=== PATIENT | female | born 2005 | race Caucasian/White ===

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

== ENCOUNTER → 2023-02-16 10:50 | Outpatient (CLI) | payer BC, OTHER, SELFPAY | PROVIDERS: PCP Nurse Practitioner; Visit Provider Nurse Practitioner | DX: Z11.1 Encounter for screening for respiratory tuberculosis (principal) | CPT/HCPCS: 86580 ==

== ENCOUNTER 2023-06-06 14:47 | Emergency (ER) | payer BC, OTHER, SELFPAY ==
--- NOTE | 2023-06-06 15:26 | ED_ITS ---
Discharge Plan Disposition Patient Disposition: Home, Self-Care Condition: Good Prescriptions Prescriptions: New azithromycin [Zithromax] 250 mg tablet 250 mg PO UD DOSE PK Qty: 6 0RF Rx Instructions: Take two (2) tablets today, then one (1) tablet days #2 thru #5 [id number] [Bromfed DM] 2-30-10 mg/5 mL Syrup 5 ml PO Q6H PRN (Reason: Cough) Qty: 240 0RF No Action sertraline [Zoloft] 50 mg tablet 50 mg PO DAILY Qty: 30 6RF Xulane 150-35 mcg/24 hr patch weekly 1 patch transdermal Q7D Qty: 3 8RF Rx Instructions: apply once weekly for 3 weeks of a 4-week cycle Referrals Follow up/Referrals: Hetal Barnett PA [Primary Care Provider] - See instructions Activity Restrictions/Add. Instructions Additional Instructions/Restrictions: Drink plenty of fluids. Take tylenol or ibuprofen for pain or fever. Take the medications as directed. Follow up with your regular doctor. GO TO THE ER FOR ANY WORSENING SYMPTOMS Clinical Impressions Clinical Impression: Sinusitis, Acute viral syndrome Stand Alone Forms Stand Alone Forms: Work/School Release Instructions Patient Instructions: DI for Sinusitis, DI for Viral Syndrome Discharge ED Provider: Sarkis Lo [facility] General Stated complaint: congestion, body aches Time Seen by Provider: 06/06/23 15:26 History of Present Illness Provider Complaint: She states that for the past 5 days she has had sinus congestion, chest congestion, malaise and sore throat. She states that at first she had fever, but that has resolved. 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 Related Data Previous Rx's Medication Instructions Recorded sertraline 50 mg tablet (Zoloft) 50 mg PO DAILY #30 tabs 08/17/22 norelgestromin 150 mcg-e.estradiol 1 patch transdermal Q7D #3 ea 11/29/22 35 mcg/24 hr weekly transderm patch (Xulane) azithromycin 250 mg tablet 250 mg PO UD DOSE PK #6 tabs 06/06/23 (Zithromax) [id number] 5 ml PO Q6H PRN Cough #240 mL 02/14/24 2 mg-30 mg-10 mg/5 mL oral syrup (Bromfed DM) Allergies Allergy/AdvReac Type Severity Reaction Status Date / Time No Known Allergies Allergy Verified 06/06/23 15:56 [facility] Disclaimer: The information contained in this section may have been updated after the patient was seen, as this information can be updated by other users. Medical History No significant past medical history Family History Other Family history of cancer Social History Smoking Status: Never smoker alcohol intake: never substance use type: denies use current occupational status: employed Travel in the last 8 weeks: None ROS Obtained: Yes All systems reviewed & no additional complaints except as documented Constitutional Constitutional: Reports chills and Reports fever(s) Eyes Eyes: Denies eye discharge ENT Ears, Nose, Mouth, and Throat: Reports as per HPI Cardiovascular Cardiovascular: Denies chest pain Respiratory Respiratory: Denies chest congestion and Reports cough Gastrointestinal Gastrointestingal: Reports nausea; Denies abdominal pain, constipation, cramping, diarrhea or vomiting Musculoskeletal Musculoskeletal: Denies arthralgias Integumentary/Breasts Skin/Breast: Denies rash Neurologic Neurologic: Denies paresthesias Physical Exam General General appearance: alert and in no apparent distress Eye Eye exam: Present normal appearance, PERRL and EOMI ENT ENT exam: Present mucous membranes moist and normal external ear exam Expanded ENT Exam External ear exam: Present normal external inspection TM/Canal exam: Bilateral TM: erythema and bulging Nose exam: Absent sinus tenderness Nasal speculum exam: Bilateral: normal Mouth exam: Present normal external inspection; Absent drooling Teeth exam: Present normal inspection Throat exam: Present tonsillar erythema and tonsillomegaly Neck Neck exam: Present normal inspection, full ROM and trachea midline; Absent tenderness, lymphadenopathy or thyromegaly Chest Chest inspection: Present normal inspection and symmetric chest wall rise; Absent tenderness or rash Respiratory Respiratory exam: Present normal lung sounds bilaterally; Absent respiratory distress, wheezes, stridor or accessory muscle use Cardiovascular Cardiovascular exam: Present regular rate, normal rhythm and normal heart sounds Abdominal Exam Abdominal exam: Present soft; Absent distention, tenderness, guarding, rebound or rigidity Extremities Exam Extremities exam: Present normal inspection, full ROM and normal capillary refill; Absent tenderness or calf tenderness Back Exam Back exam: Present normal inspection and full ROM; Absent tenderness Neurological Exam Neurological exam: Present alert and oriented X3 Psychiatric Psychiatric exam: Present normal affect and normal mood Skin Skin exam: Present warm, dry, intact and normal color Lymphatic Lymphatic Findings: no adenopathy Medical Decision Making Medical Records Medical records reviewed: No I reviewed the patient's medical records. [place] Inquiry Pt receiving controlled substance: No Lab Data Lab results reviewed: Yes I reviewed the patient's lab results.
[2023-06-06 15:40] VITALS: BP 120/70; PULSE 86; RESP 19; TEMP 36.9; O2SAT 98; BMI 20.3
[2023-06-06 15:53] LABS: UTC Influenza A Antigen Negative (Negative); UTC Influenza B Antigen Negative (Negative)
[2023-06-06 16:07] VITALS: BP 120/70; PULSE 86; RESP 19; TEMP 36.9; O2SAT 98
[2023-06-06 16:12] LABS: Adenovirus,PCR Not Detected (NotDetected); Coronavirus 19, PCR Not Detected (NotDetected); Coronavirus 229E Not Detected (NotDetected); Coronavirus NL63 Not Detected (NotDetected); Coronavirus OC43 Not Detected (NotDetected); Coronovirus HKU1,PCR Not Detected (NotDetected); Human Metapneumovirus Not Detected (NotDetected); Influenza A, PCR Not Detected (NotDetected); Influenza AH1, 2009 Not Detected (NotDetected); Influenza AH1, PCR Not Detected (NotDetected); Influenza B, PCR Not Detected (NotDetected); Parainfluenza 1, PCR Not Detected (NotDetected); Parainfluenza 2, PCR Not Detected (NotDetected); Parainfluenza 3, PCR Not Detected (NotDetected); Parainfluenza 4, PCR Not Detected (NotDetected); Respiratory Syncytial Virus Not Detected (NotDetected); Rhinovirus/Enterovirus Not Detected (NotDetected)
[2023-06-06 18:09] LABS: Influenza AH3,PCR Detected (NotDetected)
== END 2023-06-06 16:06 | disposition home or self-care (01) ==
PROVIDERS: Emergency Provider Nurse Practitioner Family; PCP Physician Assistant
DX: J10.1 Influenza due to other identified influenza virus with other respiratory manifestations (principal); J01.90 Acute sinusitis, unspecified; R05.9 Cough, unspecified; R09.81 Nasal congestion; R07.0 Pain in throat; Z20.818 Contact with and (suspected) exposure to other bacterial communicable diseases
CPT/HCPCS: 87632; 87635; 87804; 99212; 99214; G0463

== ENCOUNTER 2024-05-19 15:59 | Outpatient (CLI) | payer BC, OTHER, SELFPAY ==
[2024-05-19 18:06] LABS: HCG,Quantitative 1157 mIU/ml (0-5.42)
[2024-05-20 08:13] LABS: Progesterone 32.6 ng/mL (.)
== END 2024-05-19 23:59 | disposition home or self-care (01) ==
LOC: LAB 16:00
PROVIDERS: PCP Nurse Practitioner; Visit Provider Obstetrics & Gynecology
DX: N93.8 Other specified abnormal uterine and vaginal bleeding (principal)
CPT/HCPCS: 36415; 84144; 84702

== ENCOUNTER 2024-06-09 17:05 | Outpatient (CLI) | payer BC, OTHER, SELFPAY ==
[2024-06-10 21:09] LABS: Neisseria gonorrhoeae, NAA Negative (Negative)
== END 2024-06-09 23:59 | disposition home or self-care (01) ==
LOC: LAB.DROPOF 17:05
PROVIDERS: PCP Obstetrics & Gynecology; Visit Provider Obstetrics & Gynecology
DX: Z34.01 Encounter for supervision of normal first pregnancy, first trimester (principal)
CPT/HCPCS: 87491; 87591

== ENCOUNTER 2024-06-23 13:53 | Outpatient (CLI) | payer BC, OTHER, SELFPAY ==
[2024-06-23 14:29] LABS: Basophils % 0.5 % (0.1-2.0); Eosinophils # 0.2 K/mm3 (0.0-0.4); Eosinophils % 2.1 % (0.1-12.0); Hematocrit 36.1 % (37.0-47.0); Hemoglobin 12.1 g/dL (12.2-16.2); Lymphocytes # 1.7 K/mm3 (0.7-4.5); Lymphocytes % 20.8 % (10-50); Mean Corpuscular HGB Conc 33.5 g/dL (31.8-35.4); Mean Corpuscular Hemoglobin 29.9 pg (27.0-31.2); Mean Corpuscular Volume 89.1 fl (81-99); Monocytes # 0.5 K/mm3 (0.1-1.0); Monocytes % 6.1 % (1.7-9.3); Neutrophils # 5.6 K/mm3 (1.8-7.8); Neutrophils % 70.2 % (37.0-80.0); Platelet Count 234 K/mm3 (142-424); Red Blood Count 4.05 M/mm3 (4.20-5.40); Red Cell Distribution Width 13.7 % (11.5-17.5); White Blood Count 7.9 K/mm3 (4.8-10.8)
[2024-06-23 15:34] LABS: HIV Combo NEGATIVE (Negative)
[2024-06-23 15:43] LABS: Hepatitis C Ab Qual. W/ RFX NEGATIVE (Negative)
[2024-06-24 05:10] LABS: Hepatitis B Surface Antigen Negative (Negative)
[2024-06-24 06:11] LABS: Rubella Antibodies, IgG 2.01 index (Immune >0.99)
[2024-06-24 10:34] LABS: RPR W/RFX Titers Nonreactive (Nonreactive)
== END 2024-06-23 23:59 | disposition home or self-care (01) ==
LOC: LAB 13:54
PROVIDERS: PCP Nurse Practitioner; Visit Provider Obstetrics & Gynecology
DX: Z34.01 Encounter for supervision of normal first pregnancy, first trimester (principal); Z3A.10 10 weeks gestation of pregnancy
CPT/HCPCS: 36415; 85025; 86592; 86762; 86803; 86850; 87340; 87389

== ENCOUNTER 2024-09-01 13:39 | Outpatient (CLI) | payer BC, OTHER, SELFPAY ==
--- NOTE | 2024-09-01 14:00 | US_ITS ---
PROCEDURE: US OB /MATERNAL DETAIL CLINICAL INDICATION: schedule in 5 wks, 20 wk anatomy COMPARISON: No exams were available for comparison FINDINGS: Transabdominal sonographic images of the pelvis were obtained. From her established due date she is . Single viable intrauterine gestation. Cephalic position. Placenta: Anteriorplacenta grade 1. There is an average amount of fluid. The cervix appears satisfactory. Closed and measuring 3.76 cm in length. Complete survey performed and was unremarkable on the submitted images as in PACS. No discrete anomalies identified on survey imaging by technologist. Active fetus. Three-vessel cord with satisfactory umbilical cord insertion. 4- chamber heart noted. Situs, aortic arch, LVOT, RVOT, three-vessel view appear normal. Survey of brain & ventricles Unremarkable. Cerebellum, thalamus, choroid plexus, cisterna magna appear normal. Face and neck survey unremarkable. Profile, nasion, lips and nose appeared normal. Diaphragm and chest views unremarkable. Abdomen: Both kidneys noted and unremarkable. Stomach and bladder noted and satisfactory. Spine: Survey of the spine satisfactory with no anomalies identified nor imaged. Cervical, thoracic, lower spine appear normal. Both arms and legs noted. Amniotic Fluid: Adequate. MVP 5.04 cm Measurements: Average ultrasound age 20weeks. Estimated due date by ultrasound age 0901/19/2025. Estimated weight 321g BPD = 20weeks HC = 19weeks 5days AC = 20weeks 1day FL = 19weeks 6days Growth Percentile= 33 Heart Rate = 152bpm Cerebellum = 18weeks Humerus = 20weeks 2days HC/AC is 1.15 FL/BPD is 0.68 FL/AC is 0.21 IMPRESSION: 1. Viable fetus in the cephalic presentation with an anterior placenta grade 1. 2. The fluid is within normal limits with an MVP 5.04 cm. 3. Anatomical scan appears normal. 4. biometry is consistent with the dates Dictated by: Jason Bowers MD 09/01/2024 16:34 Jason Bowers MD in [place] 09/01/2024 16:34
== END 2024-09-01 23:59 | disposition home or self-care (01) ==
LOC: RAD 13:40
PROVIDERS: PCP Nurse Practitioner; Visit Provider Obstetrics & Gynecology
DX: Z36.2 Encounter for other antenatal screening follow-up (principal); Z3A.20 20 weeks gestation of pregnancy
CPT/HCPCS: 76811

== ENCOUNTER 2024-10-10 13:09 | Outpatient (CLI) | payer BC, OTHER, SELFPAY ==
--- OUTSIDE RECORDS SUMMARY | 2024-10-10 13:11 | XMS_ITS | Data Portability ---
[facility] Address [address] [place] [address] Assessment No assessment recorded. Plan of Treatment Reminders Order Date Submit Date Provider Last Modified By Organization Details Last Modified Time Details Appointments FOLLOW UP 15 2024 10:30A M Jeyson Barnett APRN Not available Not available Not available Lab rapid strep group A, throat [address], [address], 05/01/2024 15:25:22 rapid flu (A+B) [address], [address], 05/01/2024 15:25:22 rapid SARS CoV 2 Ag, QL, IA, upper respirato ry specimen [address], [address], 05/01/2024 15:25:22 Referral None recorded. Procedures None recorded. Surgeries None recorded. Imaging US, gallbladd er 2024 025 [facility] [address], [place], [address], 10/10/2024 11:05:31 Medication Orders amoxicill in 875 mg tablet 2024 025 [facility], [address] [place] [address], [address], 10/10/2024 11:45:38 topiramat e 50 mg tablet 2024 025 [facility], [address] [place] [address], [address], 10/10/2024 11:45:37 ondansetr on 4 mg disintegr ating tablet 2023 025 [facility], [address] [place] [address], [address], 05/01/2024 15:04:31 topiramat e 25 mg tablet 2023 025 [facility], [address] [place] [address], [address], 05/01/2024 15:04:32 topiramat e 50 mg tablet [address], [address] [place] [address], [address], 10/10/2024 10:26:09 sumatript an 50 mg tablet [address], [address] [place] [address], [address], 10/10/2024 10:26:07 Patient TargetsNo targets recorded. Patient InstructionsNo instructions recorded. Reason for Referral None Reported. Results Created Date Observation Date Name Description Value Unit Range Abnormal Flag Note LastModifiedBy Organization Detail LastModifiedTime 05/01/1905/01/2024 rapid strep group A, throa t Strep positi ve Not Available [address], [address], 05/01/2024 15:17:42 05/01/19 25 05/01/2024 rapid flu (A+B) Flu A negati ve Not Available [address], [address], 05/01/2024 15:17:43 05/01/19 25 05/01/2024 rapid flu (A+B) Flu B negati ve Not Available [address], [address], 05/01/2024 15:17:43 05/01/19 25 05/01/2024 rapid SARS CoV 2 Ag, QL, IA, upper respi rator y speci men SARS CoV Ag negati ve Not Available [address], [address], 05/01/2024 15:17:45 09/02/19 25 09/01/2024 US, obste tric No observ ation record ed. [email or web address] [facility] [address], [place], [address], 09/01/2024 17:49:09 Result Notes None recorded. Problems Name Problem SNOMED Code Status Onset Date Resolution Date Notes Provider Name and Address Organization Details Recorded Time Sore throat 926939287 Active 2024 Annalisa isaac [place] - [email or web address] 15:17:35 Candidia sis of vulva 9429295 Completed 202007/29/2020 Not Available [facility] 2 20:57:15 Migraine with aura 6054027 Active 2019 Problem Code: G43.109; Problem Code Type: ICD-10; Not Available [facility] 2 20:57:15 Tension- type headache 048476149 Active 2018 Problem Code: G44.209; Problem Code Type: ICD-10; Not Available [facility] 2 20:57:15 Acute frontal sinusiti s 19355755 Completed 201905/16/2019 Problem Code: J01.10; Problem Code Type: ICD-10; Not Available [facility] 2 20:57:15 Acute pharyngi tis 657242132 Active 2018 Not Available [facility] 2 20:57:15 Acute pharyngi tis 953703969 Completed 201805/16/2019 Not Available [facility] 2 20:57:15 Acute pharyngi tis 589175533 Completed 202005/03/2021 Not Available [facility] 2 20:57:16 Allergic rhinitis 23352645 Active 2019 Problem Code: J30.9; Problem Code Type: ICD-10; Not Available [facility] 2 20:57:16 Allergic rhinitis 01571716 Completed 201805/16/2019 Problem Code: J30.9; Problem Code Type: ICD-10; Not Available [facility] 2 20:57:16 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 28582014120 9100 Completed 201805/16/2019 Problem Code: M41.124; Problem Code Type: ICD-10; Not Available [facility] 2 20:57:16 Pain in thoracic spine 575801799 Completed 201805/16/2019 Problem Code: M54.6; Problem Code Type: ICD-10; Not Available [facility] 2 20:57:16 Urinary tract infectio us disease 25029071 Active 2021 Problem Code: N39.0; Problem Code Type: ICD-10; Not Available [facility] 2 20:57:16 Vaginola bial hernia Active 2020 Problem Code: N89.8; Problem Code Type: ICD-10; Not Available [facility] 2 20:57:16 Vaginola bial hernia Completed 202005/03/2021 Problem Code: N89.8; Problem Code Type: ICD-10; Not Available [facility] 2 20:57:17 Irregula r periods 76113665 Active 2021 Not Available [facility] 2 20:57:17 Premenop ausal menorrha aris Active 2021 Not Available [facility] 2 20:57:17 Abnormal uterine bleeding 40801392386 100 Completed 201912/02/2019 Problem Code: N93.8; Problem Code Type: ICD-10; Not Available [facility] 2 20:57:17 Finding of frequenc y of menstrua tion 315370578 Active 2019 Not Available [facility] 2 20:57:17 Amenorrh ea 59525112 Active 2020 Problem Code: N91.2; Problem Code Type: ICD-10; Not Available [facility] 2 20:57:17 Dysmenor alivia 448247530 Active 2021 Not Available [facility] 2 20:57:18 Cough 25154118 Active 2019 Problem Code: R05; Problem Code Type: ICD-10; Not Available [facility] 2 20:57:18 Dysuria 34721322 Completed 202105/10/2021 Problem Code: R30.0; Problem Code Type: ICD-10; Not Available [facility] 2 20:57:18 Dysuria 93258626 Active 2021 Problem Code: R30.0; Problem Code Type: ICD-10; Not Available [facility] 2 20:57:18 Headache 44651241 Completed 201805/16/2019 Problem Code: R51; Problem Code Type: ICD-10; Not Available [facility] 2 20:57:18 Abnormal finding on evaluati on procedur e 980551944 Active 2019 Not Available [facility] 2 20:57:19 Syphilis test finding 052741944 Active 2019 Problem Code: Z11.3; Problem Code Type: ICD-10; Not Available [facility] 2 20:57:19 Exposure to SARS-CoV -2 Active 2020 Problem Code: Z20.822; Problem Code Type: ICD-10; Not Available [facility] 2 20:57:19 Influenz a vaccine needed 06355944484 06 Active 2019 Problem Code: Z23; Problem Code Type: ICD-10; Not Available [facility] 2 20:57:19 Contrace ptive sheath status 094369955 Active 2018 Problem Code: Z30.018; Problem Code Type: ICD-10; Not Available [facility] 2 20:57:19 Contrace ption care manageme nt Active 2021 Problem Code: Z30.9; Problem Code Type: ICD-10; Not Available [facility] 2 20:57:20 Contrace ptive sheath status 044092057 Completed 201812/02/2019 Problem Code: Z30.018; Problem Code Type: ICD-10; Not Available [facility] 2 20:57:21 Surveill ance of contrace ption Completed 201805/03/2021 Not Available [facility] 2 20:57:21 Finding of body mass index 278556438 Active 2020 Problem Code: Z68.1; Problem Code Type: ICD-10; Not Available [facility] 2 20:57:21 Finding of body mass index 227500634 Completed 202108/21/2021 Problem Code: Z68.1; Problem Code Type: ICD-10; Not Available [facility] 2 20:57:22 Body mass index 20-24 - normal 980083641 Active 2021 Not Available [facility] 2 20:57:22 Normal body mass index 34725585 Active 2019 Problem Code: Z68.52; Problem Code Type: ICD-10; Not Available [facility] 2 20:57:22 Normal body mass index 51287552 Completed 201905/10/2020 Problem Code: Z68.52; Problem Code Type: ICD-10; Not Available [facility] 2 20:57:23 Urinary tract infectio us disease 65610978 Completed 202106/20/2021 Problem Code: N39.0; Problem Code Type: ICD-10; Not Available [facility] 2 20:57:23 Influenz a vaccine needed 91533240565 06 Completed 202005/03/2021 Problem Code: Z23; Problem Code Type: ICD-10; Not Available [facility] 2 20:57:24 Influenz a vaccine needed 77269360951 06 Completed 202005/03/2021 Problem Code: Z23; Problem Code Type: ICD-10; Not Available [facility] 2 20:57:25 Finding of viabilit y of pregnanc y 814913226 Active 2021 Not Available [facility] 2 20:57:25 Finding of body mass index 727397035 Completed 202007/01/2020 Problem Code: Z68.1; Problem Code Type: ICD-10; Not Available [facility] 2 20:57:25 Normal body mass index 62076354 Completed 202105/10/2021 Problem Code: Z68.52; Problem Code Type: ICD-10; Not Available [facility] 2 20:57:26 Problem Notes None recorded. Procedures Surgical History Date Name Laterality Status Provider Name and Address Organization Details Recorded Time procedure on foot completed Annalisa Roland [facility] 03/12/2023 16:34:27 Imaging Results None recorded. Procedure Notes None recorded. Medical Equipment None Reported. Allergies No known drug allergies Medications Name Sig Start Date Stop Date Status Note LastModified by Organization Details LastModified Time amoxicillin 500 mg capsule TAKE 1 CAPSULE BY MOUTH THREE TIMES DAILY 05/01 completed Not Available Not Available Not Available norgestimat e 0.25 mg-ethinyl estradiol 0.035 mg tablet take 1 tablet by oral route once daily 09/10 completed Not Available Not Available Not Available cetirizine 10 mg tablet take 1 tablet (10 mg) by oral route once daily 07/12 completed Not Available Not Available Not Available azithromyci n 250 mg tablet TAKE 1 TABLET BY MOUTH TWICE DAILY FOR 7 DAYS 05/01 completed Not Available Not Available Not Available ibuprofen 800 mg tablet TAKE 1 TABLET BY MOUTH EVERY 6 HOURS NEEDED FOR PAIN 05/01 completed Not Available Not Available Not Available alprazolam 1 mg tablet TAKE 1 TABLET BY MOUTH ONE HOUR PRIOR TO SURGERY 05/01 completed Not Available Not Available Not Available tizanidine 4 mg tablet 1 po q hs 09/04 completed Not Available Not Available Not Available fluconazole 150 mg tablet take 1 tablet (150 mg) by oral route once today, then 1 tablet PO in 3 days 05/03 completed Not Available Not Available Not Available sumatriptan 25 mg tablet take 1 tablet (25 mg) by oral route after onset of migraine; may repeat after 2 hours if headache returns, not to exceed 200mg in 24hrs 07/12 completed Not Available Not Available Not Available sumatriptan 50 mg tablet TAKE 1 TABLET BY MOUTH 1 DOSE MAY REPEAT 1 DOSE IN 2 HOURS WITH A MAX OF 100MG/24 HOURS 10/10 completed Not Available Not Available Not Available levonorgest rel 0.15 mg-ethinyl estradiol 0.03 mg tablet take 1 tablet by oral route once daily 07/12 completed Not Available Not Available Not Available topiramate 25 mg tablet TAKE ONE TABLET BY MOUTH AT BEDTIME for 1 week then take 1 tablet twice daily for 1 week 05/01 completed Not Available Not Available Not Available metronidazo le 500 mg tablet take 1 tablet (500 mg) by oral route 2 times per day 05/03 completed Not Available Not Available Not Available valacyclovi r 500 mg tablet TAKE ONE TABLET BY MOUTH TWICE DAILY FOR FOUR DAYS 10/10 completed Not Available Not Available Not Available ciprofloxac in 500 mg tablet take 1 tablet (500 mg) by oral route every 12 hours for 10 days 06/20 completed Not Available Not Available Not Available sulfamethox azole 800 mg-trimetho prim 160 mg tablet take 1 tablet by oral route every 12 hours for 10 days 05/10 completed Not Available Not Available Not Available amoxicillin 500 mg tablet take 1 tablet (500 mg) by oral route every 12 hours for 10 days 05/16 completed Not Available Not Available Not Available oxycodone-a cetaminophe n 5 mg-325 mg tablet TAKE 1 TABLET BY MOUTH EVERY 4 HOURS NEEDED FOR PAIN 05/01 completed Not Available Not Available Not Available amoxicillin 875 mg tablet Take 1 tablet every 12 hours by oral route for 7 days. 10/10 completed Not Available Not Available Not Available Zoloft 50 mg tablet Take 1 tablet every day by oral route. 03/12 completed Not Available Not Available Not Available oseltamivir 75 mg capsule 05/01 completed Not Available Not Available Not Available docusate sodium 100 mg capsule TAKE 1 CAPSULE BY MOUTH TWICE DAILY FOR CONSTIPAT ION 05/01 completed Not Available Not Available Not Available Naprosyn 500 mg tablet Take 1 tablet(s) by mouth bid 09/04 completed Not Available Not Available Not Available propranolol 20 mg tablet take 1 tablet (20 mg) by oral route 2 times per day 07/12 completed Not Available Not Available Not Available bromphenira mine-pseudo ephedrine-D M 2 mg-30 mg-10 mg/5 mL oral syrup Give 5 mL every 8 hrs as needed for cough 05/01 completed Not Available Not Available Not Available ondansetron 4 mg disintegrat ing tablet DISSOLVE ONE TABLET every 4 to 6 hours as needed 05/01 completed Not Available Not Available Not Available medroxyprog esterone 150 mg/mL intramuscul ar syringe inject 1 millilite r (150 mg) by intramusc ular route every 11 weeks 07/01 completed Not Available Not Available Not Available topiramate 50 mg tablet Take 1 tablet twice a day by oral route for 90 days. 10/10 completed Not Available Not Available Not Available nitrofurant oin monohydrate /macrocryst als 100 mg capsule 05/01 completed Not Available Not Available Not Available active Not Available Not Avai lable Not Available drospirenon e 3 mg-ethinyl estradiol 0.02 mg tablet take 1 tablet by oral route once daily 06/20 completed Not Available Not Available Not Available naproxen sodium ER (CR) 500 mg tablet,exte nded release 24 hr mphase take 1 tablet twice a day as needed for pain 03/12 completed Not Available Not Available Not Available 28 mg iron-800 mcg tablet One by oral route daily 03/12 completed Not Available Not Available Not Available Zafemy 150 mcg-35 mcg/24 hr transdermal patch APPLY 1 PATCH TOPICALLY ONCE EVERY 7 DAYS FOR 3 WEEKS OF A 4 WEEK CYCLE 10/10 completed Not Available Not Available Not Available Vitals Date Recorded Body height Body mass index (BMI) [Percentile] Per age and sex Body mass index (BMI) Body weight Heart rate Oxygen saturation Oxygen saturation in Arterial blood by Pulse oximetry Systolic blood pressure Diastolic blood pressure Provider Name and Address Organization Details Last Updated DateTime 4 160.02 cm 37 % 20.7 kg/m2 59403.0 1 g 85 /min 98 % 98 % 109 mm[Hg] 68 mm[Hg] Annalisa Restaro. 4 14:08:29 Date Recorded Body height Body mass index (BMI) Body mass index (BMI) [Percentile] Per age and sex Body weight Heart rate Oxygen saturation Oxygen saturation in Arterial blood by Pulse oximetry Body temperature Systolic blood pressure Diastolic blood pressure Provider Name and Address Organization Details Last Updated DateTime 5 160.02 cm 19.9 kg/m2 26 % 22360.0 5 g 86 /min 99 % 99 % 97.8 [degF] 107 mm[Hg] 73 mm[Hg] Annalisa [employer] 5 14:56:47 Date Recorded Body height Body mass index (BMI) Body mass index (BMI) [Percentile] Per age and sex Body weight Heart rate Oxygen saturation Oxygen saturation in Arterial blood by Pulse oximetry Systolic blood pressure Diastolic blood pressure Provider Name and Address Organization Details Last Updated DateTime 4 160.02 cm 20.7 kg/m2 37 % 11818.3 1 g 87 /min 97 % 97 % 110 mm[Hg] 75 mm[Hg] Annalisa Restaro. 4 08:49:50 Date Recorded Body height Body mass index (BMI) Body weight Body temperature Heart rate Oxygen saturation Oxygen saturation in Arterial blood by Pulse oximetry Systolic blood pressure Diastolic blood pressure Provider Name and Address Organization Details Last Updated DateTime 5 160.02 cm 22.7 kg/m2 75022.8 2 g 97.8 [degF] 117 /min 98 % 98 % 116 mm[Hg] 80 mm[Hg] Annalisa Roland [employer] 5 10:24:53 Date Recorded Body mass index (BMI) [Percentile] Per age and sex Body mass index (BMI) Body height Provider Name and Address Organization Details Last Updated DateTime 03/12/2023 47 % 21.4 kg/m2 160.02 cm Melody Barnett APRN [address] [place] [address], [phone], [employer] 03/12/2023 17:48:28 Date Recorded Body weight Heart rate Oxygen saturation Oxygen saturation in Arterial blood by Pulse oximetry Systolic blood pressure Diastolic blood pressure Provider Name and Address Organization Details Last Updated DateTime 3 11830.2 4 g 79 /min 99 % 99 % 118 mm[Hg] 72 mm[Hg] Annalisa Roland [employer] 3 16:31:30 Social History Question Answer Notes LastModified by Organizat ion Details LastModified Time Tobacco Smoking Status Never Smoker [employer] ion: 'Tobacco/ Alcohol/S upplement s'; SocialHis toryRespo nse: 'Never Smoker'; Not Available [facility] 12/27/2021 23:01:30 Is Your Home Air Conditioned? Yes Information not available 03/12/2023 Are You Blind Or Do You Have Difficulty Seeing? No Information not available 03/12/2023 What Is Your Level Of Caffeine Consumption? Moderate Information not available 03/12/2023 Are You A Caregiver? Yes Information not available 03/12/2023 In The 14 Days Before Symptom Onset, Have You Had Close Contact With A Laboratory-confir med COVID-19 While That Case Was Ill? No Information not available 03/12/2023 In The 14 Days Before Symptom Onset, Have You Had Close Contact With A Person Who Is Under Investigation For COVID-19 While That Person Was Ill? No Information not available 03/12/2023 Have You Been To An Area Known To Be High Risk For COVID-19? No Information not available 03/12/2023 Are You Deaf Or Do You Have Serious Difficulty Hearing? No Information not available 03/12/2023 Who Is Your Employer? [employer] Information not available 03/12/2023 Have There Been Any Changes To Your Family Or Social Situation? No Information no t available 03/12/2023 What Was The Date Of Your Most Recent Tobacco Screening? 10/10/2024 Information not available 10/10/2024 What Is Your Relationship Status? Single Information not available 03/12/2023 Do You Use Your Seat Belt Or Car Seat Routinely? Yes Information not available 03/12/2023 Do You Have Smoke And Carbon Monoxide Detectors In Your Home? Yes Information not available 03/12/2023 Are You Passively Exposed To Smoke? Yes Information no t available 03/12/2023 Are There Any Smokers In Your House? Yes Information not available 03/12/2023 Has Tobacco Cessation Counseling Been Provided? No Information not available 03/12/2023 Have You Recently Traveled Abroad? No Information not available 03/12/2023 Do You Have Difficulty Walking Or Climbing Stairs? No Information not available 03/12/2023 Sex: Female Functional Status Question Answer Note LastModified by Organizat ion Details LastModified Time Do you use any illicit or recreational drugs? No Information not available 03/12/2023 Are you currently employed? Yes Information not available 03/12/2023 Do you have transportation difficulties? No Information not available 03/12/2023 Are you able to walk? YESWOREST Information not available 03/12/2023 Do you have difficulty doing errands alone? No Information not available 03/12/2023 Are you able to care for yourself? Yes Information not available 03/12/2023 Do you have difficulty dressing or bathing? No Information not available 03/12/2023 Mental Status Question Answer Note LastModified by Organization D etails LastModified Time Do you have difficulty concentrating, remembering or making decisions? No Information no t available 03/12/2023 Family History Relationship Description Onset Age of this Age Resolved Age Notes LastModified by Organization Details LastModified Time Unspecified Relation Family history of drug abuse Relati ve: ''; [email or web address] Not available 12/27/2021 22:56:10 Unspecified Relation Family history of hyperlipidem ia Relati ve: ''; [email or web address] Not available 12/27/2021 22:56:10 Notes:*Procedure Description : Documented family medical history in mother*Relative: Mother *Procedure Description: Documented family medical history in father*Relative: Father Medical History Condition Response Allergies (Food, seasonal, environmental ) Y Headaches Y Gynecological History Statement/Question Response Date of Last Pap Smear Current Control Method Most Recent Mammogram Obstetrics History GPAL:G 0 P 0 0 0 0 Immunizations Vaccine Type Date Status Note Provider Nam e and Address Organization Details Recorded Time HPV9 8 completed Annalisa isaac [employer] 09/15/2023 08:42:57 HPV9 9 completed Annalisa isaac [employer] 09/15/2023 08:42:57 [id number] 4 completed Not Available [facility] 12/27/2021 23:51:07 [id number] 4 completed Not Available [facility] 12/27/2021 23:51:07 [id number] 4 completed Not Available [facility] 12/27/2021 23:51:07 DTaP 8 completed Not Available [facility] 12/27/2021 23:51:07 DTaP 5 completed Not Available [facility] 12/27/2021 23:51:07 MMR 8 completed Not Available [facility] 12/27/2021 23:51:07 MMR 5 completed Not Available [facility] 12/27/2021 23:51:08 IPV 8 completed Not Available [facility] 12/27/2021 23:51:08 Tdap 5 completed Not Available [facility] 12/27/2021 23:51:08 varicella 8 completed Not Available [facility] 12/27/2021 23:51:08 varicella 5 completed Not Available [facility] 12/27/2021 23:51:08 COVID-19, mRNA, LNP-S, PF, 30 mcg/0.3 mL dose 1 completed Not Available [facility] 12/27/2021 23:51:08 COVID-19, mRNA, LNP-S, PF, 30 mcg/0.3 mL dose 1 completed Not Available [facility] 12/27/2021 23:51:08 Hep B, unspecified formulation 4 completed Not Available [facility] 12/27/2021 23:51:08 Hep B, unspecified formulation 4 completed Not Available [facility] 12/27/2021 23:51:08 Hep B, unspecified formulation 4 completed Not Available [facility] 12/27/2021 23:51:08 Hib, unspecified formulation 4 completed Annalisa Roland null, [employer] 09/15/2023 08:42:57 Hib, unspecified formulation 4 completed Annalisa Straughn null, [employer] 09/15/2023 08:42:57 Hib, unspecified formulation 4 completed Annalisa Straughn null, [employer] 09/15/2023 08:42:57 meningococcal ACWY, unspecified formulation 5 completed Annalisa Kapadiay null, [employer] 09/15/2023 08:42:57 polio, unspecified formulation 8 completed Annalisa Kapadiay null, [employer] 09/15/2023 08:42:57 polio, unspecified formulation 4 completed Annalisa Kapadiay null, [employer] 09/15/2023 08:42:57 polio, unspecified formulation 4 completed Annalisaboni Kapadiay null, [employer] 09/15/2023 08:42:57 polio, unspecified formulation 4 completed Annalisa Kapadiay null, [employer] 09/15/2023 08:42:57 Hep A, ped/adol, 2 dose 8 completed Annalisaboni Kapadiay null, [employer] 09/15/2023 08:42:57 Hep A, ped/adol, 2 dose 9 completed Annalisa Asuncion null, [employer] 09/15/2023 08:42:57 Meningococcal MCV4O 0 completed Annalisa Jolly null, [employer] 09/15/2023 08:42:57 Influenza, split virus, trivalent, PF 4 completed Not Available [facility] 10/10/2024 10:12:24 Past Encounters Encounter ID Performer Location Encounter Start Date Encounter Closed Date Diagnosis/Indication Diagnosis SNOMED-CT Code Diagnosis ICD10 Code Diagnosis Note [id number] Melody Barnett[address] [address] 03/12/2023 16:19:56 03/12/2023 17:00:26 Migraine without aura 40007334 G43.009 Body mass index 20-24 - normal [id number] Z68.21 [id number] Melody Anibal [address] [address] 05/01/2023 13:55:39 05/01/2023 14:54:29 Fatigue 10046807 R53.83 Anxiety disorder [id number] 06 F41.9 Body mass index 20-24 - normal [id number] Z68.21 [id number] Melodyvinicius Barnett [place] [id number] 09/15/2023 08:40:18 09/15/2023 09:07:48 Migraine [id number] G43.909 Nausea 898498228 R11.0 Body mass index 20-24 - normal 341540319 Z68.21 [id number] Melody Barnett [place] [address] 05/01/2024 13:53:31 05/01/2024 16:55:57 Migraine 98634218 G43.909 Sore throat 315317576 J0 2.9 Streptococ kevin sore throat 05998019 J02.0 Body mass index less than 20 247974384 Z68.1 [id number] [place] [address] 10/10/2024 10:11:26 10/10/2024 10:46:13 Right upper quadrant pain 489977816 R10.11 Acute diarrhea 081150654 R19.7 Body mass index 20-24 - normal 838201362 Z68.22 Health Concerns Section Related Observation LastModified by Organization Detai ls LastModified Time None Recorded Concern Status LastModified by Organization Details LastModified Time None Recorded Advance Directives Directive None Recorded Payers Insurance Date Sequence Insurance Name Policy Number Policy Ponce Covered Member ID Ponce Member ID Guarantor Name 05/01/2024 2 [facility] (MEDICAID HMO) Paulina Emilia [id number] Paulina Emilia 10/09/2024 1 [facility] (PPO) [id number] Paulina M Emilia [id number] Paulina Emilia 03/12/2023 1 *SELF PAY* Sa jessica Nieto 05/01/2024 [address] [facility] [place] Paulina Emilia [id number] Paulina Emilia Notes Date Note Type Note Provider Name and Address Organization Details Recorded Time 03/12/2023 text/html pt here today wi th c/o migraine headaches that has been going on for a couple of years but worsening over the past year. pt states that she has had a migraine since sunday and today is the first day she hasnt woke up with a migraine. pt states that she has taken tylenol and excedrin and ibuprofen and none has helped. pt states that she will have pain on one side of her head, sometimes her vision will go blurry and her body will go numb , she is sensitive to light and sound. pt states last eye exam was around 1 month ago where she got updated eye glasses and otherwise eye exam waas WNL. advised pt to increase water intake, foods to eat and avoid. i will order PRN sumatriptan. if that doesnt help then i will order ct head. advised pt to go to ER for any stroke like symptoms. Melody Barnett APRN [address] [place], [address], [employer], [facility] [employer] [facility]. 03/12/2023 17:49:02 05/01/2023 text/html pt here today requesting a letter to keep her dog at her apartment. pt states that her dog has been a source of emotional support for her for a while now and she doesnt know how she would get along without the dog. due to pt anxiety it would be in pt best interest to keep her pet for emotional support. Melody Barnett APRN [address] [place], [address], [employer], [facility] [facility]. 05/01/2023 14:44:47 09/15/2023 text/html pt here today wi th c/o headache. pt states that she is having a headache most days in between migraines. pt states that the sumatriptan helps with migraines but she has a headache most days. pt states that it is above her eyes and that it goes to the back of her head. and she is nauseated. then it becomes a migraine. i will order topamax. educated pt on new med and foods to avoid. pt voiced understanding. Melody Barnett APRN [address] [place], [address], [employer]. 09/15/2023 09:18:09 05/01/2024 text/html pt here today wi th c/o sore throat, cough and congestion x4 days. rapid strep positive. on exam, throat red and dry. ordered abx. educated pt on new med. pt voiced understanding. increase fluids, tylenol/ibuprofen for pain, change toothbrush in 2-3 days. Melody Barnett APRN [address] [place], [address], [employer], [facility]. 05/01/2024 15:34:43 10/10/2024 text/html pt here today wi th c/o abd pain and diarrhea x3 days. pt states that the diarrhea started on and she just thought she was getting a stomach bug but then she abd pain started. states that it happens right after she eats anything. states that she barely ate anything yesterday and that is unlike her. states that she didnt eat breakfast, her mother brought her arbys for lunch and that really about killed her and then she didnt eat again until about 2100 and she ate 2 chicken nuggets and it caused abd pain and diarrhea. pt is so it is a little difficult to do an abd assessment, however pt does have tenderness to RUQ and LUQ. i am going to order an US of RUQ to r/o gallbladder issues. advised pt to limit greasy, fatty foods, processed foods, increase water. Melody Barnett APRN [address] [place], [address], [employer] 10/10/2024 10:52:57 OBGyn Episode No OBEpisode recorded.
--- NOTE | 2024-10-10 13:12 | US_ITS ---
FINAL REPORT TECHNIQUE: Sonographic images of the right upper quadrant were obtained. CLINICAL HISTORY: RUQ PAIN COMPARISON: None FINDINGS: PANCREAS: Unremarkable. LIVER: Homogeneous. No focal hepatic lesion. No intrahepatic biliary ductal dilatation. GALLBLADDER: No gallstones. No gallbladder wall thickening or pericholecystic fluid. COMMON DUCT: 3 mm. Normal for age. RIGHT KIDNEY: The right kidney measures 11.1 cm. Mild right hydronephrosis. No evidence of mass or stone. FREE FLUID: None. IMPRESSION: Unremarkable ultrasound of the gallbladder. Mild right hydronephrosis. Reviewed, Interpreted and Dictated by Paige Swift MD Transcribed by Pat Navarro Authenticated and . [facility]
--- OUTSIDE RECORDS SUMMARY | 2024-10-10 13:12 | XMS_ITS | Encounter Summary ---
Author Organization [employer] Address [address] [place] [address] Care Team Providers Care Corral Boss Name Role Phone Unavailable Primary Care Provider Unavailabl e Encounter Details Date Type Department Care Team (Late st Contact Info) Description 03/04/2021 Transcribed Document [facility] [place] [facility] [place] [address] ProviderHenny MD [facility] [place] [id number] Social History Tobacco Use Types Packs/Day Years Used Date Smoking Tobacco: Never Assessed Comments Unknown Sex and Gender Information Value Date Recorded Sex Assigned at Not on file Legal Sex Female 7:12 PM CDT Gender Identity Not on file Sexual Orientation Not on file documented as of this encounter Miscellaneous Notes * [employer]ner Conversion Note - Henny ProviderMD - 03/04/2021 9:00 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 The pain has been going on for many years but has gotten progressively worse. She describes it as a sharp pain. It is now to the point that it is affecting her ADLs. She has tried NSAIDs without relief of her pain. She has not fallen. She has not used an assistive device. She was seen at Dr Chenug's office and evaluated and she was offered Bilateral Feet Destruction of Plantar Verruca and agreed to the procedure. Pt denies a h/o DVT/PE. No trouble with anesthesia in the past. No respiratory conditions including COPD/YURIDIA/asthma. Review of Systems Constitutional: Neg for fevers or chills. Eyes: Neg for blurry vision or change in vision. ENT: Neg for sore throat, ear pain, or dizziness. Cardiac: Neg for chest pain or dyspnea on exertion. Respiratory: Neg for shortness of breath. Gastrointestinal: Neg for nausea, vomiting, diarrhea, or constipation. Musculoskeletal: Pos for bilateral foot pain. Neurologic: Neg for headaches or seizures. Psychiatric: Neg for anxiety and depression. Integumentary: Neg for rash. Vital Signs T: 36.4 ??C HR: 89(Peripheral) RR: 16 BP: 112/61 SpO2: 99% HT: 161.29 cm WT: 52.27 kg BMI: 20.1 Oxygen Settings (Last) Oxygen Therapy Mode: Room air (03/04/21 10:03:00) Physical Exam Constitutional: This is a pleasant 15 yo WF in no acute distress. HEENT: Normocephalic, atraumatic. PEERLA. Extraocular muscles intact. Conjunctiva pink without exudate. Oropharynx pink and moist. Neck supple. No JVD. Cardiac: SI, S2. RRR. No M/R/G. Respiratory: Lungs CTA bilaterally. No wheezes, rales, or rhonchi. Abdomen: Soft, nontender, nondistended. Active bowel sounds. No visible masses. Musculoskeletal: Bilateral LE without clubbing, cyanosis or edema. Integumentary: Skin is pink, warm and dry. No rashes. Neurologic: CN II-XII grossly intact. Psychiatric: Judgment and affect appropriate. Assessment/Plan 1. Preoperative Evaluation- Pt underwent preoperative laboratory workup and diagnostic studies. 2. Bilateral Foot Pain- Proceed with surgery as scheduled with Dr Cheung on 03/08/2021. Problem List/Past Medical History Ongoing No chronic problems Historical No qualifying data Procedure/Surgical History None Medications None Allergies No Known Medication Allergies Social History Alcohol Alcohol Use History No. Substance Abuse Drug Use Hx: No. Tobacco Never (less than 100 in lifetime) Smoking Status. Family History Pt mother is alive and healthy. Pt father from a CVA at 42. Lab Results Test Name Test Result Date/Time Sodium Level 140 mmol/L 03/04/2021 10:07 EST Potassium Level 3.7 mmol/L 03/04/2021 10:07 EST Chloride Level 107 mmol/L 03/04/2021 10:07 EST Carbon Dioxide Level 27 mmol/L 03/04/2021 10:07 EST Anion Gap 10 03/04/2021 10:07 EST Glucose Level 67 mg/dL (Low) 03/04/2021 10:07 EST Blood Urea Nitrogen 6 mg/dL (Low) 03/04/2021 10:07 EST Creatinine Level 0.64 mg/dL 03/04/2021 10:07 EST eGFR N/A 03/04/2021 10:07 EST eGFR NonAfrican N/A 03/04/2021 10:07 EST Bun/Creatinine 9.4 03/04/2021 10:07 EST Calcium Level 8.7 mg/dL 03/04/2021 10:07 EST Protein Total 7.2 Gram/dL 03/04/2021 10:07 EST Albumin Level 4.0 Gram/dL 03/04/2021 10:07 EST Globulin 3.2 Gram/dL 03/04/2021 10:07 EST A/G Ratio 1.2 03/04/2021 10:07 EST Bilirubin Total 0.5 mg/dL 03/04/2021 10:07 EST Alk Phos 106 Units/Liter 03/04/2021 10:07 EST AST 12 Units/Liter (Low) 03/04/2021 10:07 EST ALT 15 Units/Liter 03/04/2021 10:07 EST WBC 4.9 K/uL 03/04/2021 10:07 EST RBC 4.48 Million/uL 03/04/2021 10:07 EST Hgb 13.8 Gram/dL 03/04/2021 10:07 EST Hct 41.4 % 03/04/2021 10:07 EST MCV 92.4 fL 03/04/2021 10:07 EST MCH 30.8 pg 03/04/2021 10:07 EST MCHC 33.3 Gram/dL 03/04/2021 10:07 EST Platelet Count 224 K/uL 03/04/2021 10:07 EST MPV 10.7 fL 03/04/2021 10:07 EST RDW 12.1 % 03/04/2021 10:07 EST Neut % 61.1 % 03/04/2021 10:07 EST Neut # 3.01 K/uL 03/04/2021 10:07 EST Lymph % 22.2 % 03/04/2021 10:07 EST Lymph # 1.09 K/uL (Low) 03/04/2021 10:07 EST [place] % 11.8 % 03/04/2021 10:07 EST [place] # 0.58 K/uL 03/04/2021 10:07 EST Eos % 4.1 % 03/04/2021 10:07 EST Eos # 0.20 K/uL 03/04/2021 10:07 EST Baso % 0.6 % 03/04/2021 10:07 EST Baso # 0.03 K/uL 03/04/2021 10:07 EST Slide Review No 03/04/2021 10:07 EST IG# 0 x10(3)/uL 03/04/2021 10:07 EST IG% 0 % 03/04/2021 10:07 EST Electronically signed by Priya, [facility] Conversion Avid Editor Cerner at 08/11/2022 7:33 PM CDT documented in this encounter Plan of Treatment Not on file documented as of this encounter Visit Diagnoses Not on filedocumented in this encounter
--- OUTSIDE RECORDS SUMMARY | 2024-10-10 13:12 | XMS_ITS | Encounter Summary ---
Author Organization [employer] Address [address] [place] [address] Care Team Providers Care Ladle Liner Helper Name Role Phone Unavailable Primary Care Provider Unavailabl e Encounter Details Date Type Department Care Team (Late st Contact Info) Description 03/08/2021 Transcribed Document [facility] [place] [facility] [place] [address] ProviderHenny MD [address] [place] [id number] Social History Tobacco Use Types Packs/Day Years Used Date Smoking Tobacco: Never Assessed Comments Unknown Sex and Gender Information Value Date Recorded Sex Assigned at Not on file Legal Sex Female 7:12 PM CDT Gender Identity Not on file Sexual Orientation Not on file documented as of this encounter Miscellaneous Notes * Cerner Conversion Note - Historical ProviderMD - 03/08/2021 11:55 AM 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 Patient: NICHO LIM Age: 15 Years Sex: Female : 2005 *Operation Destruction of plantar verruca to bilateral feet Local nerve block bilateral feet Anesthesia Type MAC Indication for Surgery see dictation *Preoperative Diagnosis Plantar verruca bilateral feet Pain bilateral feet *Postoperative Diagnosis Plantar verruca bilateral feet Pain bilateral feet *Surgeon(s) Primary Surgeon TAI MYRICK DPM-REGGIE (Surgeon/Proceduralist, First) *Estimated Blood Loss Minimal *Findings Hemostasis: None Materials: None Injectable: 5 cc of 1% lidocaine and 0.5% Marcaine plain 1:1 mix to each foot *Specimen(s) None Complications None Date of Service 03/08/2021 documented in this encounter Plan of Treatment Not on file documented as of this encounter Visit Diagnoses Not on filedocumented in this encounter
--- OUTSIDE RECORDS SUMMARY | 2024-10-10 13:12 | XMS_ITS | Encounter Summary ---
Author Organization [employer] Address [address] [place] [address] Care Team Providers Care School Bus Inspector Name Role Phone Unavailable Primary Care Provider Unavailabl e Encounter Details Date Type Department Care Team (Late st Contact Info) Description 03/08/2021 Transcribed Document [facility] [place] Medicine [facility] [place] [address] ProviderHenny MD [address] [place] [id number] Social History Tobacco Use Types Packs/Day Years Used Date Smoking Tobacco: Never Assessed Comments Unknown Sex and Gender Information Value Date Recorded Sex Assigned at Not on file Legal Sex Female 7:12 PM CDT Gender Identity Not on file Sexual Orientation Not on file documented as of this encounter Miscellaneous Notes * Cerner Conversion Note - Historical ProviderMD - 03/08/2021 11:41 AM 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 Name: NICHO NIETO/Sex: 2005 Female Med Rec #: [id number] Physician: TAI MYRICK DPM-SUR Financial #: [id number] Pt. Type: O Room/Bed: [facility]/ Admit/Disch: 03/08/21 04:40:00 - Institution: [facility] PostOp Case Times Entry 1 In PACU II 03/08/21 12:07:00 Ready for PACU II 03/08/21 12:37:00 Discharge Discharge from PACU 03/08/21 12:37:00 II Last Modified By: Meghna Lundy RN 03/08/21 12:36:52 [facility] PostOp Case Times Audit 03/08/21 12:36:52 Fruit Rancher: CHRISTY Modifier: CARRIEC <+> 1 Ready for PACU II Discharge <+> 1 Discharge from PACU II Finalized By: Meghna Lundy RN Document Signatures Signed By: Meghna Lundy RN 03/08/21 12:37 documented in this encounter Plan of Treatment Not on file documented as of this encounter Visit Diagnoses Not on filedocumented in this encounter
--- OUTSIDE RECORDS SUMMARY | 2024-10-10 13:12 | XMS_ITS | Continuity of Care Document ---
Author Organization [facility] [employer], [employer] [facility] Address [address] [place] [address] Assessment No assessment recorded. Plan of Treatment Reminders Order Date Submit Date Provider Last Modified By Organization Details Last Modified Time Details Appointments FOLLOW UP 15 2024 10:30A M Jeyson Barnett APRN Not available Not available Not available Lab None recorded. Referral None recorded. Procedures None recorded. Surgeries None recorded. Imaging US, gallbladd er 2024 025 [facility] ([facility]), [address], [place], [address], 10/10/2024 11:05:31 Medication Orders None recorded. Patient TargetsNo targets recorded. Patient InstructionsNo instructions recorded. Reason for Referral None Reported. Problems Name Problem SNOMED Code Status Onset Date Resolution Date Notes Provider Name and Address Organization Details Recorded Time Sore throat 811566557 Active 2024 Annalisa isaac [facility] [employer]. 5 15:17:35 Candidia sis of vulva 1839140 Completed 202007/29/2020 Not Available [facility] 2 20:57:15 Migraine with aura 5998816 Active 2019 Problem Code: G43.109; Problem Code Type: ICD-10; Not Available [facility] 2 20:57:15 Tension- type headache 693145687 Active 2018 Problem Code: G44.209; Problem Code Type: ICD-10; Not Available [facility] 2 20:57:15 Acute frontal sinusiti s 88847975 Completed 201905/16/2019 Problem Code: J01.10; Problem Code Type: ICD-10; Not Available [facility] 2 20:57:15 Acute pharyngi tis 030330778 Active 2018 Not Available [facility] 2 20:57:15 Acute pharyngi tis 876480549 Completed 201805/16/2019 Not Available [facility] 2 20:57:15 Acute pharyngi tis 787969784 Completed 202005/03/2021 Not Available [facility] 2 20:57:16 Allergic rhinitis 53795956 Active 2019 Problem Code: J30.9; Problem Code Type: ICD-10; Not Available [facility] 2 20:57:16 Allergic rhinitis 24605274 Completed 201805/16/2019 Problem Code: J30.9; Problem Code Type: ICD-10; Not Available [facility] 2 20:57:16 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 94871900070 9100 Completed 201805/16/2019 Problem Code: M41.124; Problem Code Type: ICD-10; Not Available [facility] 2 20:57:16 Pain in thoracic spine 019200999 Completed 201805/16/2019 Problem Code: M54.6; Problem Code Type: ICD-10; Not Available [facility] 2 20:57:16 Urinary tract infectio us disease 99842215 Active 2021 Problem Code: N39.0; Problem Code Type: ICD-10; Not Available [facility] 2 20:57:16 [place]agin[place] bial hernia Active 2020 Problem Code: N89.8; Problem Code Type: ICD-10; Not Available [facility] 2 20:57:16 [place] bial hernia Completed 202005/03/2021 Problem Code: N89.8; Problem Code Type: ICD-10; Not Available [facility] 2 20:57:17 Irregula r periods 15383435 Active 2021 Not Available [facility] 2 20:57:17 Premenop ausal menorrha aris Active 2021 Not Available [facility] 2 20:57:17 Abnormal uterine bleeding 98038028295 100 Completed 201912/02/2019 Problem Code: N93.8; Problem Code Type: ICD-10; Not Available [facility] 2 20:57:17 Finding of frequenc y of menstrua tion 905703275 Active 2019 Not Available [facility] 2 20:57:17 Amenorrh ea 42943394 Active 2020 Problem Code: N91.2; Problem Code Type: ICD-10; Not Available [facility] 2 20:57:17 Dysmenor alivia 721221678 Active 2021 Not Available [facility] 2 20:57:18 Cough 33308887 Active 2019 Problem Code: R05; Problem Code Type: ICD-10; Not Available [facility] 2 20:57:18 Dysuria 23117909 Completed 202105/10/2021 Problem Code: R30.0; Problem Code Type: ICD-10; Not Available [facility] 2 20:57:18 Dysuria 34734215 Active 2021 Problem Code: R30.0; Problem Code Type: ICD-10; Not Available [facility] 2 20:57:18 Headache 04079364 Completed 201805/16/2019 Problem Code: R51; Problem Code Type: ICD-10; Not Available [facility] 2 20:57:18 Abnormal finding on evaluati on procedur e 463548934 Active 2019 Not Available [facility] 2 20:57:19 Syphilis test finding 340753513 Active 2019 Problem Code: Z11.3; Problem Code Type: ICD-10; Not Available [facility] 2 20:57:19 Exposure to SARS-CoV -2 Active 2020 Problem Code: Z20.822; Problem Code Type: ICD-10; Not Available [facility] 2 20:57:19 Influenz a vaccine needed 73012403607 06 Active 2019 Problem Code: Z23; Problem Code Type: ICD-10; Not Available [facility] 2 20:57:19 Contrace ptive sheath status 204234589 Active 2018 Problem Code: Z30.018; Problem Code Type: ICD-10; Not Available [facility] 2 20:57:19 Contrace ption care manageme nt Active 2021 Problem Code: Z30.9; Problem Code Type: ICD-10; Not Available [facility] 2 20:57:20 Contrace ptive sheath status 332795073 Completed 201812/02/2019 Problem Code: Z30.018; Problem Code Type: ICD-10; Not Available [facility] 2 20:57:21 Surveill ance of contrace ption Completed 201805/03/2021 Not Available [facility] 2 20:57:21 Finding of body mass index 171206163 Active 2020 Problem Code: Z68.1; Problem Code Type: ICD-10; Not Available [facility] 2 20:57:21 Finding of body mass index 821158013 Completed 202108/21/2021 Problem Code: Z68.1; Problem Code Type: ICD-10; Not Available [facility] 2 20:57:22 Body mass index 20-24 - normal 380530351 Active 2021 Not Available [facility] 2 20:57:22 Normal body mass index 11572949 Active 2019 Problem Code: Z68.52; Problem Code Type: ICD-10; Not Available [facility] 2 20:57:22 Normal body mass index 60618517 Completed 201905/10/2020 Problem Code: Z68.52; Problem Code Type: ICD-10; Not Available [facility] 2 20:57:23 Urinary tract infectio us disease 70980449 Completed 202106/20/2021 Problem Code: N39.0; Problem Code Type: ICD-10; Not Available [facility] 20:57:23 Influenz a vaccine needed 27621198089 06 Completed 202005/03/2021 Problem Code: Z23; Problem Code Type: ICD-10; Not Available [facility] 2 20:57:24 Influenz a vaccine needed 54978265655 06 Completed 202005/03/2021 Problem Code: Z23; Problem Code Type: ICD-10; Not Available [facility] 2 20:57:25 Finding of viabilit y of pregnanc y 522934937 Active 2021 Not Available [facility] 2 20:57:25 Finding of body mass index 627819146 Completed 202007/01/2020 Problem Code: Z68.1; Problem Code Type: ICD-10; Not Available [facility] 2 20:57:25 Normal body mass index 13718521 Completed 202105/10/2021 Problem Code: Z68.52; Problem Code Type: ICD-10; Not Available [facility] 20:57:26 Problem Notes None recorded. Procedures Surgical History Date Name Laterality Status Provider Name and Address Organization Details Recorded Time procedure on foot [facility] 03/12/2023 16:34:27 Imaging Results None recorded. Procedure [...] and Address Organization Details Last Updated DateTime 160.02 cm 22.7 kg/m2 30257.8 2 g 97.8 [degF] 117 /min 98 % 98 % 116 mm[Hg] 80 mm[Hg] Annalisa Roland [facility] [employer]. 10:24:53 Social History Question Answer Notes LastModified by Organizat ion Details LastModified Time Tobacco Smoking Status Never Smoker SocialHis toryQuest ion: 'Tobacco/ Alcohol/S upplement s'; SocialHis toryRespo nse: 'Never Smoker'; Not Available [facility] 12/27/2021 23:01:30 Is Your Home Air Conditioned? [...] 03/12/2023 Who Is Your Employer? 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 09/15/2023 08:42:57 HPV9 9 completed Annalisa isaac [employer] 09/15/2023 08:42:57 NSoZ-Prh-BBM 4 completed Not Available [facility] 12/27/2021 23:51:07 LTrD-Wft-NNF 4 completed Not Available [facility] 12/27/2021 23:51:07 GWfG-Fiy-ZIV 4 completed Not Available [facility] 12/27/2021 23:51:07 DTaP 8 completed Not Available [facility] 12/27/2021 23:51:07 DTaP 5 completed Not Available [facility] 12/27/2021 23:51:07 MMR 8 completed Not Available [facility] 12/27/2021 23:51:07 MMR 5 completed Not Available [facility] 12/27/2021 23:51:08 IPV 8 completed Not Available [facility] 12/27/2021 23:51:08 Tdap 5 completed Not Available [facility] 12/27/2021 23:51:08 varicella 8 completed Not Available [facility] 12/27/2021 23:51:08 varicella 5 completed Not Available [facility] 12/27/2021 23:51:08 COVID-19, mRNA, LNP-S, PF, 30 mcg/0.3 mL dose 1 completed Not Available [facility] 12/27/2021 23:51:08 COVID-19, mRNA, LNP-S, PF, 30 mcg/0.3 mL dose 1 completed Not Available [facility] 12/27/2021 23:51:08 Hep B, unspecified formulation 4 completed Not Available [facility] 12/27/2021 23:51:08 Hep B, unspecified formulation 4 completed Not Available [facility] 12/27/2021 23:51:08 Hep B, unspecified formulation 4 completed Not Available [facility] 12/27/2021 23:51:08 Hib, unspecified formulation 4 completed Annalisa [place] null, [employer] 09/15/2023 08:42:57 Hib, unspecified formulation 4 completed Annalisa [place] null, [employer] 09/15/2023 08:42:57 Hib, unspecified formulation 4 completed Annalisa [place] null, [employer] 09/15/2023 08:42:57 meningococcal ACWY, unspecified formulation 5 completed Annalisa [place] null, [employer] 09/15/2023 08:42:57 polio, unspecified formulation 8 completed Annalisa [place] null, [employer] 09/15/2023 08:42:57 polio, unspecified formulation 4 completed Annalisa [place] null, [employer] 09/15/2023 08:42:57 polio, unspecified formulation 4 completed Annalisaboni Roland null, [employer] 09/15/2023 08:42:57 polio, unspecified formulation 4 completed Annalisaboni Roland null, [employer] 09/15/2023 08:42:57 Hep A, ped/adol, 2 dose 8 completed Annalisaboni Kapadiay null, [employer] 09/15/2023 08:42:57 Hep A, ped/adol, 2 dose 9 completed Annalisa Jolly null, [employer] 09/15/2023 08:42:57 Meningococcal MCV4O 0 completed Annalisa Asuncion null, [employer] 09/15/2023 08:42:57 Influenza, split virus, trivalent, PF 4 completed Not Available [facility] 10/10/2024 10:12:24 Past Encounters Encounter ID Performer Location Encounter Start Date Encounter Closed Date Diagnosis/Indication Diagnosis SNOMED-CT Code Diagnosis ICD10 Code Diagnosis Note [id number] Melody Barnett [place] [id number] 10/10/2024 10:11:26 10/10/2024 10:46:13 Right upper quadrant pain 595058916 R10.11 Acute diarrhea 017019085 R19.7 Body mass index 20-24 - normal 279431156 Z68.22 Health Concerns Section Related Observation LastModified by Organization Detai ls LastModified Time None Recorded Concern Status LastModified by Organization Details LastModified Time None Recorded Payers Encounter Date Sequence Insurance Name Policy Number Policy Ponce Covered Member ID Ponce Member ID Guarantor Name 10/10/2024 1 [employer] [id number] Paulina Nieto [id number] Paulina Nieto Notes Date Note Type Note Provider Name and Address Organization Details Recorded Time 10/10/2024 text/html pt here today wi th [...] foods, increase water. Melody Barnett APRN [address] [facility], [place], [address], [facility] [employer] 10/10/2024 10:52:57 OBGyn Episode No OBEpisode recorded.
--- OUTSIDE RECORDS SUMMARY | 2024-10-10 13:12 | XMS_ITS | Encounter Summary ---
Author Organization [employer] Address [address] [place] [address] Care Team Providers Care Pulverizing And Sifting Operator Name Role Phone Unavailable Primary Care Provider Unavailabl e Encounter Details Date Type Department Care Team (Late st Contact Info) Description 03/08/2021 Transcribed Document [facility] [place] [facility] [place] [address] ProviderHenny MD [address] [place] [phone] Social History Tobacco Use Types Packs/Day Years Used Date Smoking Tobacco: Never Assessed Comments Unknown Sex and Gender Information Value Date Recorded Sex Assigned at Not on file Legal Sex Female 7:12 PM CDT Gender Identity Not on file Sexual Orientation Not on file documented as of this encounter Miscellaneous Notes * Cerner Conversion Note - Historical ProviderMD - 03/08/2021 11:41 AM NEEDLE FELT MAKING 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 Name: NICHO NIETO/Sex: 2005 Female Med Rec #: [id number] Physician: TAI MYRICK DPM-SUR Financial #: [id number] Pt. Type: O Room/Bed: [facility]/5 Admit/Disch: 03/08/21 04:40:00 - 03/08/21 12:37:00 [place] [facility] [place] Times Entry 1 In Preop 03/08/21 08:25:00 Ready for Holding n/a Room Patient Ready for 03/08/21 10:02:00 Surgery Patient Out of Preop 03/08/21 11:15:00 Patient Out of n/a Holding Room Last Modified By: NURIS ROYAL RN 03/08/21 16:42:45 SJKeli PreOp Case Times Audit 03/08/21 16:42:45 Valve Seater Operator: ERIKA Modifier: SCHROEJ <+> 1 Patient Out of Preop 03/08/21 10:05:59 Valve Seater Operator: ERIKA Modifier: SCHROEJ <+> 1 Patient Ready for Surgery Finalized By: NURIS ROYAL RN Document Signatures Signed By: NURIS ROYAL RN 03/08/21 16:42 documented in this encounter Plan of Treatment Not on file documented as of this encounter Visit Diagnoses Not on filedocumented in this encounter
--- OUTSIDE RECORDS SUMMARY | 2024-10-10 13:12 | XMS_ITS | Encounter Summary ---
Author Organization [facility] [employer] Address [address] [place] [address] Care Team Providers Care Virtual Assistant Name Role Phone Unavailable Primary Care Provider Unavailabl e Encounter Details Date Type Department Care Team (Late st Contact Info) Description 03/08/2021 Transcribed Document [facility] [place] [facility] [place] [address] ProviderHenny MD [address] [place], [place] [phone] Social History Tobacco Use Types Packs/Day Years Used Date Smoking Tobacco: Never Assessed Comments Unknown Sex and Gender Information Value Date Recorded Sex Assigned at Not on file Legal Sex Female 7:12 PM CDT Gender Identity Not on file Sexual Orientation Not on file documented as of this encounter Miscellaneous Notes * Cerner Conversion Note - Henny ProviderMD - 03/08/2021 9:50 AM CHILLING HOOD OPERATOR Spiritual Care Assessment Entered On: 03/08/2021 10:14 EST Performed On: 03/08/2021 10:00 EST by QUAN WASHINGTON Chaplain General Information Initial Visit : Yes Referred by : Nurse Referral Reason Comment : pre-surgery prayer Ministry Provided to : Patient, Family/Significant other Spiritual/Emotional Acuity : Low Spiritual Framework : Unknown Synagogue Preference : Unknown QUAN WASHINGTON Chaplain - 03/08/2021 10:12 EST Spiritual Assessment Patient's Community/Relationship : Strength in patient's life Supportive/Healthy Relationships : Yes Spiritual Assessment Comment/Summary Points : Pre-surgery visit to patient, her mom was with her. Patient was tearful from having an IV placed, but seemed to be coping over all. She was quiet, but mom shared that she is hopeful that the surgery will end the issues patient has had with her feet for quite some time. Prakennad with patient and mom for her surgery and recovery. Spirital Assessment Comment/Summary Report : SPIRITUAL ASSESSMENT COMMENT/SUMMARY No qualifying data available. QUAN WASHINGTON Chaplain - 03/08/2021 10:12 EST Interventions Emotional Support : Empathic/Engaged listening, Established trust, Family/Significant other supported, Feelings expressed, Hope strengths identified, Relationship strengths identified Spiritual and Synagogue : Prayer shared QUAN WASHINGTON Chaplain - 03/08/2021 10:12 EST documented in this encounter Plan of Treatment Not on file documented as of this encounter Visit Diagnoses Not on filedocumented in this encounter
--- OUTSIDE RECORDS SUMMARY | 2024-10-10 13:12 | XMS_ITS | Encounter Summary ---
Author Organization [employer] Address [address] [place] [address] Care Team Providers Care Commercial Hvac Service Technician Name Role Phone Unavailable Primary Care Provider Unavailabl e Encounter Details Date Type Department Care Team (Late st Contact Info) Description 03/08/2021 Transcribed Document [facility] [place] [facility] [place] [address] ProviderHenyn MD [address], [place] [phone] Social History Tobacco Use Types Packs/Day Years Used Date Smoking Tobacco: Never Assessed Comments Unknown Sex and Gender Information Value Date Recorded Sex Assigned at Not on file Legal Sex Female 7:12 PM CDT Gender Identity Not on file Sexual Orientation Not on file documented as of this encounter Miscellaneous Notes * Cerner Conversion Note - Historical ProviderMD - 03/08/2021 11:41 AM EDITOR [facility] OR PACU Summary Primary Physician: TAI MYRICK DPM-SUR Finalized Date/Time: 03/08/21 12:13:13 Pt. Name: NICHO NIETO/Sex: 2005 Female Med Rec #: [id number] Physician: TAI MYRICK DPM-SUR Financial #: [id number] Pt. Type: O Room/Bed: [facility]/ Admit/Disch: 03/08/21 04:40:00 - Institution: [place] Main OR PACU Case Times Entry 1 In PACU I 03/08/21 12:01:00 Ready for PACU 03/08/21 12:12:00 Discharge Discharge from PACU 03/08/21 12:12:00 I Last Modified By: CHRISTINE LING, [id number]-OP CAR 03/08/21 12:13:05 Finalized By: CHRISTINE LING, [id number]-OP CAR Document Signatures Signed By: CHRISTINE LING, [id number]-OP CAR 03/08/21 12:13 documented in this encounter Plan of Treatment Not on file documented as of this encounter Visit Diagnoses Not on filedocumented in this encounter
--- OUTSIDE RECORDS SUMMARY | 2024-10-10 13:12 | XMS_ITS | Clinical Summary ---
Author Organization [employer] Address [address] [place] [address] Care Team Providers Care Oil Scout Name Role Phone Unavailable Primary Care Provider Unavailabl e Social History Tobacco Use Types Packs/Day Years Used Date Smoking Tobacco: Never Assessed Comments Unknown Sex and Gender Information Value Date Recorded Sex Assigned at Not on file Legal Sex Female 7:12 PM CDT Gender Identity Not on file Sexual Orientation Not on file Plan of Treatment Not on file
--- OUTSIDE RECORDS SUMMARY | 2024-10-10 13:12 | XMS_ITS | Encounter Summary ---
Author Organization [employer] Address [address] [place] [address] Care Team Providers Care Oracle Business Analyst Name Role Phone Unavailable Primary Care Provider Unavailabl e Encounter Details Date Type Department Care Team (Late st Contact Info) Description 03/08/2021 Transcribed Document [facility] [place] Family Medicine [facility] [place] [address] Henny Sanchez MD [address], [place] [id number] Social History Tobacco Use Types Packs/Day Years Used Date Smoking Tobacco: Never Assessed Comments Unknown Sex and Gender Information Value Date Recorded Sex Assigned at Not on file Legal Sex Female 7:12 PM CDT Gender Identity Not on file Sexual Orientation Not on file documented as of this encounter Miscellaneous Notes * Cerner Conversion Note - Henny ProviderMD - 03/08/2021 11:58 AM BOAT WRAPPER Patient Education Materials Follows: Heel Pad Atrophy Heel pad atrophy is a cause of heel pain. Your heels take much of the impact when you stand, walk, or run. A fat pad under your heel bone protects the bone and cushions it. Over time, the fat pad can break down and lose elasticity and size (atrophy). This causes heel pain due to decreased cushioning in your heel. In many cases, the pain occurs in both heels. You may feel an aching or burning pain that gets worse while you are walking or standing. This pain may be worse for athletes who play sports on hard surfaces with high impact on their heels. What are the causes? This condition is caused by the gradual break down of the fat pad under the heel bone. What increases the risk? This condition is more likely to develop in people who: ??? Are age 40 or older. ??? Play a sport that involves jumping and landing on hard surfaces, such as in basketball. ??? Are runners, especially if they land on their heels first when they run. ??? Are overweight. ??? Have diabetes, rheumatoid arthritis, or blood vessel disease. ??? Get steroid injections in the heel area. ??? Have had trauma to the heel area, such as falling from a height. What are the signs or symptoms? The most common symptom of this condition is burning or aching pain in one or both heels. The pain or tenderness may be worse when: ??? Walking or standing, especially on hard surfaces or for long amounts of time. ??? Walking barefoot. ??? Wearing hard-soled shoes. ??? Resting at night. ??? Pressing on the center of the heel. How is this diagnosed? This condition is diagnosed based on your symptoms, medical history, and a physical exam. Your health care provider will check your heel pad and see if you have tenderness in the center of your heel. You may also have an ultrasound to confirm the diagnosis and measure the thickness of your fat pad. How is this treated? Treatment for this condition includes: ??? Lessening the amount of time spent walking, standing, or running. ??? Avoiding activities that cause pain. ??? Taking an sohu-yln-ncanmjo pain reliever or anti-inflammatory medicine. ??? Wearing shoes with thick heel cushioning or using a soft shoe insert (orthotic). ??? Wearing shoes at all times, even indoors. ??? Taping your heels to increase support. ??? Losing weight if you are overweight. Follow these instructions at home: Managing pain, stiffness, and swelling ??? If directed, put ice on the injured area. ? Put ice in a plastic bag. ? Place a towel between your heel and the bag. ? Leave the ice on for 20 minutes, 2?3 times a day. ??? Move your toes often to lessen stiffness and swelling. ??? Raise (elevate) the foot above the level of your heart while you are sitting or lying down. Activity ??? Return to your normal activities as told by your health care provider. Ask your health care provider what activities are safe for you. ??? Do exercises as told by your health care provider. General instructions ??? Take gnsv-mdp-adkxbgr and prescription medicines only as told by your health care provider. ??? Wear orthotics and supportive shoes as told by your health care provider. Do not wear high heels. ??? Do not use any products that contain nicotine or tobacco, such as cigarettes, e-cigarettes, and chewing tobacco. If you need help quitting, ask your health care provider. ??? If you are overweight, work with your health care provider to reach a healthy weight. ??? Keep all follow-up visits as told by your health care provider. This is important. How is this prevented? Give your body time to rest between periods of activity. ??? Wear comfortable and supportive shoes during athletic activity. ??? Maintain a healthy weight. ??? Manage long-term (chronic) health conditions, such as diabetes, high blood pressure, or blood vessel disease. Contact a health care provider if: ??? Your symptoms do not improve or they get worse. ??? You have concerns about your orthotics and shoes. Summary ??? Heel pad atrophy is a cause of heel pain. ??? This condition is caused by the gradual breakdown of the fat pad under the heel bone. ??? Treatment may include avoiding activities that cause pain, using a soft shoe insert (orthotic), and maintaining a healthy weight. This information is not intended to replace advice given to you by your health care provider. Make sure you discuss any questions you have with your health care provider. Document Revised: 04/14/2019 Document Reviewed: 04/14/2019 [employer] Patient Education ? 2020 [employer] documented in this encounter Plan of Treatment Not on file documented as of this encounter Visit Diagnoses Not on filedocumented in this encounter
--- OUTSIDE RECORDS SUMMARY | 2024-10-10 13:12 | XMS_ITS | Encounter Summary ---
Author Organization [employer] Address [address] [place] [address] Care Team Providers Care Health Researcher Name Role Phone Unavailable Primary Care Provider Unavailabl e Encounter Details Date Type Department Care Team (Late st Contact Info) Description 03/08/2021 Transcribed Document [facility] [place] [address] ProviderHenny MD [address] [place] [address] Social History Tobacco Use Types Packs/Day Years Used Date Smoking Tobacco: Never Assessed Comments Unknown Sex and Gender Information Value Date Recorded Sex Assigned at Not on file Legal Sex Female 7:12 PM CDT Gender Identity Not on file Sexual Orientation Not on file documented as of this encounter Miscellaneous Notes * Cerner Conversion Note - Historical ProviderMD - 03/08/2021 11:41 AM [employer] [place] Main OR IntraOp Summary Primary Physician: TAI MYRICK DPM-SUR Finalized Date/Time: 03/08/21 12:10:52 Pt. Name: NICHO NIETO/Sex: 2005 Female Med Rec #: [id number] Physician: TAI MYRICK DPM-SUR Financial #: [id number] Pt. Type: O Room/Bed: [facility]/ Admit/Disch: 03/08/21 04:40:00 - Institution: [facility] IntraOp Case Attendance Entry 1 Entry 2 Entry 3 Case Attendee Fermin Uriostegui, Surgical OTHER, ATTENDEE #1 REBECA MONTAÑO, Cath Lab Radiology Technician Cert BUSINESS ACCOUNT MANAGER Role Performed Laser Automatic Punch Press Operator Student BUSINESS ACCOUNT MANAGER/Nurse Gang Tailer Time In 03/08/21 11:23:00 03/08/21 11:35:00 03/08/21 11:23:00 Time Out 03/08/21 12:02:00 03/08/21 12:02:00 03/08/21 12:02:00 Procedure Verruca Verruca Verruca Excision(Bilateral) Excision(Bilateral) Excision(Bilateral) Other Attendee ARNULFO MEDRANO Superficial Wound Closed By: Last Modified By: Camryn Limon, Braxton, Crystal, Limon, Crystal, RN-PATIENT CARE BEDSIDE RN-PATIENT CARE BEDSIDE RN-PATIENT CARE BEDSIDE NON-EXEMPT 03/08/21 NON-EXEMPT 03/08/21 NON-EXEMPT 03/08/21 12:10:41 12:10:41 12:10:41 Entry 4 Entry 5 Entry 6 Case Attendee TAI MYRICK, GENARO-Mily Garcia, YUNG DEE, RN Role Performed Surgeon/Proceduralist, Scrub, First Mechanical Design Drafter, First First Time In 03/08/21 11:23:00 03/08/21 11:23:00 03/08/21 11:23:00 Time Out 03/08/21 12:02:00 03/08/21 12:02:00 03/08/21 11:38:00 Procedure Verruca Verruca Verruca Excision(Bilateral) Excision(Bilateral) Excision(Bilateral) Other Attendee Superficial Wound Closed By: Last Modified By: Camryn Limon, Braxton, Crystal, Limon, Crystal, RN-PATIENT CARE BEDSIDE RN-PATIENT CARE BEDSIDE RN-PATIENT CARE BEDSIDE NON-EXEMPT 03/08/21 NON-EXEMPT 03/08/21 NON-EXEMPT 03/08/21 12:10:41 12:10:41 12:10:41 Entry 7 Entry 8 Case Attendee HERIBERTO NIELSON ST Blankenship, Crystal, RN-PATIENT CARE BEDSIDE NON-EXEMPT Role Performed Scrub, First Mechanical Design Drafter, First Time In 03/08/21 11:23:00 03/08/21 11:35:00 Time Out 03/08/21 11:41:00 03/08/21 12:02:00 Procedure Verruca Verruca Excision(Bilateral) Excision(Bilateral) Other Attendee Superficial Wound Closed By: Last Modified By: Camryn Limon, Camryn Limon RN-PATIENT CARE BEDSIDE RN-PATIENT CARE BEDSIDE NON-EXEMPT 03/08/21 NON-EXEMPT 03/08/21 12:10:41 12:10:41 [facility] IntraOp Case Attendance Audit 03/08/21 12:10:41 Financial Aid Advisor: [id number] Modifier: [id number] 1 <+> Time Out 1 <*> Procedure Verruca Excision(Bilateral) 2 <+> Time Out 2 <*> Procedure Verruca Excision(Bilateral) 3 <+> Time Out 3 <*> Procedure Verruca Excision(Bilateral) 4 <+> Time Out 4 <*> Procedure Verruca Excision(Bilateral) 5 <+> Time Out 5 <*> Procedure Verruca Excision(Bilateral) 6 <*> Procedure Verruca Excision(Bilateral) 7 <*> Procedure Verruca Excision(Bilateral) 8 <+> Time Out 8 <*> Procedure Verruca Excision(Bilateral) 03/08/21 12:07:39 Financial Aid Advisor: SHY Modifier: [id number] <+> Time In 1 <*> Procedure Verruca Excision(Bilateral) 2 <*> Procedure Verruca Excision(Bilateral) 3 <*> Procedure Verruca Excision(Bilateral) <+> 4 Procedure 5 <+> Time In 5 <*> Procedure Verruca Excision(Bilateral) 6 <*> Procedure Verruca Excision(Bilateral) 7 <*> Procedure Verruca Excision(Bilateral) 8 <*> Procedure Verruca Excision(Bilateral) 03/08/21 11:47:05 Financial Aid Advisor: SHY Modifier: [email or web address] 1 <*> Case Attendee TAI MYRICK DPM-REGGIE 1 <*> Role Performed Surgeon/Proceduralist, First 1 <+> Procedure 2 <*> Case Attendee REBECA MONTAÑO BUSINESS ACCOUNT MANAGER 2 <*> Role Performed BUSINESS ACCOUNT MANAGER/Nurse Gang Tailer 2 <+> Time In 2 <*> Procedure Verruca Excision(Bilateral) 2 <+> Other Attendee 3 <*> Case Attendee YUNG RIZZO, BOBBY 3 <*> Role Performed Mechanical Design Drafter, First 3 <+> Time In 3 <*> Procedure Verruca Excision(Bilateral) 4 <*> Case Attendee HERIBERTO NIELSON ST 4 <*> Role Performed Scrub, First 4 <+> Time In 4 <-> Procedure Verruca Excision(Bilateral) <+> 5 Case Attendee <+> 5 Role Performed <+> 5 Procedure <+> 6 Case Attendee <+> 6 Role Performed <+> 6 Time In <+> 6 Time Out <+> 6 Procedure <+> 7 Case Attendee <+> 7 Role Performed <+> 7 Time In <+> 7 Time Out <+> 7 Procedure <+> 8 Case Attendee <+> 8 Role Performed <+> 8 Time In <+> 8 Procedure [facility] IntraOp Case Times Entry 1 Patient In Room Time 03/08/21 11:23:00 Out Room Time 03/08/21 12:02:00 Anesthesia Start Time 03/08/21 11:23:00 Stop Time 03/08/21 12:02:00 Anesthesia Ready 03/08/21 11:23:00 Surgery / Procedure Times Start Time 03/08/21 11:41:00 Stop Time 03/08/21 11:51:00 Last Modified By: Camryn Limon RN-PATIENT CARE BEDSIDE NON-EXEMPT 03/08/21 12:08:18 [facility] IntraOp Case Times Audit 03/08/21 12:08:18 Financial Aid Advisor: [id number] Modifier: [id number] <+> 1 Out Room Time <+> 1 Stop Time 03/08/21 11:54:14 Financial Aid Advisor: SHY Modifier: [id number] <+> 1 Start Time <+> 1 Stop Time [facility] IntraOp Counts Verification Entry 1 Procedure Verruca Excision(Bilateral) Count Info Count Type Sponge, Sharps Counts Verification Baseline/pre-procedure Sequence Count Results Correct, surgeon notified Counts Performed By Count Performed By HERIBERTO NIELSON ST (Scrub) Count Performed By YUNG RIZZO, RN (RN) Last Modified By: YUNG RIZZO, BOBBY 03/08/21 11:48:55 [facility] IntraOp Counts Final Entry 1 Procedure Verruca Excision(Bilateral) Final Count Info Count Type Sponge, Sharps Counts Verification Skin Closure/end of Sequence procedure Count Results Correct, surgeon notified Counts Performed By Count Performed By Mily Thurman CST (Scrub) Count Performed By Camryn Limon, (RN) RN-PATIENT CARE BEDSIDE NON-EXEMPT Last Modified By: Camryn Limon RN-PATIENT CARE BEDSIDE NON-EXEMPT 03/08/21 11:54:30 [facility] IntraOp Departure from OR Entry 1 Integumentary Assessment Integumentary WDL Assessment WDL Transfer/Handoff Transfer to Ambulatory unit, Phase II Handoff Method Bedside/Face to face, Other Post-op Transport Stretcher/Gurney Via Patient Transport DANYEL REBECAMEGAN VALENCIA, Accompanied by BUSINESS ACCOUNT MANAGER, Camryn Limon RN-PATIENT CARE BEDSIDE NON-EXEMPT Last Modified By: Camryn Limon RN-PATIENT CARE BEDSIDE NON-EXEMPT 03/08/21 11:54:47 [facility] IntraOp Dressing and Packing Entry 1 Type Dressing Location BILATERAL FEET Wound Dressing Item 4x4's, Kerlix/Galen Tape Type Paper Applied By TAI MYRICK DPM-SUR Last Modified By: Camryn Limon RN-PATIENT CARE BEDSIDE NON-EXEMPT 03/08/21 11:55:23 [facility] IntraOp Fire Risk Assessment Entry 1 Fire Info Surgical Site or 0- No Incision Above the Xyphoid Open O2 Source 1- Yes (Mask or Cannula) Available Ignition 1- Yes (ESU, Laser, Light Source) Fire Risk 2 Assessment Score Fire Score Fire Risk Yes Assessment Complete Fire Risk Camryn Limon, Assessment Verified RN-PATIENT CARE BEDSIDE By NON-EXEMPT Fire Risk 03/08/21 11:55:00 Assessment Verified Date/Time Fire Risk Standard Fire Yes Safety Precautions Followed Last Modified By: Camryn Limon RN-PATIENT CARE BEDSIDE NON-EXEMPT 03/08/21 11:55:44 [facility] IntraOp General Case Flight Crew Scheduler 1 Case Information OR OR 10 [facility] Case Level 1 Room Verified Yes Wound Class 1 - Clean Specialty Podiatry Anesthesia Type General ASA Class 1 Diagnosis Preop Diagnosis BILATERAL PLANTAR VERRUCA Postop Same As Preop No Postop Diagnosis DICTATED BY SURGEON Wound Class Definitions Last Modified By: Camryn Limon RN-PATIENT CARE BEDSIDE NON-EXEMPT 03/08/21 11:56:31 [facility] IntraOp Intraoperative Assessment Entry 1 Handoff Method Bedside/Face to face, Other Valid History / Yes Physical in Chart Preoperative Yes Checklist Reviewed/Evaluated Allergies Reviewed Yes Patient is Latex No Sensitive Isolation Not applicable Precautions Noted Level of WDL Consciousness (WDL = Alert, Oriented to Person, Place, and Time) Present Upon IVs Arrival to OR Last Modified By: Camryn Limon RN-PATIENT CARE BEDSIDE NON-EXEMPT 03/08/21 11:56:54 [facility] IntraOp Intraoperative Equipment Entry 1 Type Equipment Equipment Equipment Abby Suction System Setting 100% Intraop Monitoring Electrocardiogram Three lead placement (ECG) Electrode Placement Blood Pressure Non-Invasive BP Device Source Antiembolic Devices Scopes Photo/Video Documentation Photo No Video No Last Modified By: Camryn Limon RN-PATIENT CARE BEDSIDE NON-EXEMPT 03/08/21 11:57:32 [facility] IntraOp Laser Data/Safety Entry 1 Procedure Verruca Excision(Bilateral) Laser Data Laser Type CO2 Laser Mode Other Laser Mode Set By TAI MYRICK DPM-SUR Microscope Used? No Hand Piece/Contact Yes Tip Used Laser Fiber Used No Gonzales 4.0 Total Time Seconds 300 Second(s) Laser Safety Procedure personnel Measures Included received laser safety information, Gilbert of water/Saline immediately available, Fire extinguisher location noted, Laser Caution placards placed on all doors, Laser safe instrumentation utilized, Specific laser safety precautions implemented, Smoke evacuator tested/used, Suction evacuator with laser filter, Wet towels and sponges used to protect patient and drapes, Windows covered, Laser tested/calibrated, Appropriate eye protection for patient, Appropriate eye protection for staff, Appropriate eye protection for surgeon, High-filtration mask available, No flammable liquid around surgical area, Secure laser operation bravo, Implement fire protection measures Last Modified By: Camryn Limon RN-PATIENT CARE BEDSIDE NON-EXEMPT 03/08/21 11:59:43 [facility] IntraOp Medication Admin Entry 1 Entry 2 Medication/Irrigant lidocaine 1% 20ml vial Bupivicaine/Marcaine - [id number] 0.5% 30ml - [id number] Combo Med List Time Administered Route of LOCAL INJECTION LOCAL INJECTION Administration Dose Dose 5 5 Unit of Measure ml ml Volume 5 ML 5 ML Administered By TAI MYRICK DPM-SUR Blankenship, Crystal, RN-PATIENT CARE BEDSIDE NON-EXEMPT Procedure Irrigation Irrigant Volume In Irrigant Volume Out Last Modified By: Camryn Limon, Camryn Limon RN-PATIENT CARE BEDSIDE RN-PATIENT CARE BEDSIDE NON-EXEMPT 03/08/21 NON-EXEMPT 03/08/21 12:05:07 12:05:07 [facility] IntraOp Patient Positioning Entry 1 Procedure Verruca Excision(Bilateral) Body Position Supine Left Arm Position Secured on padded arm board Right Arm Position Secured on padded arm board Left Leg Position Uncrossed, parallel Right Leg Position Uncrossed, parallel Feet Uncrossed Yes Pressure Points Yes Checked Positioning Devices Arm Board, Safety Strap, Thighs Positioned By TAI MYRICK DPM-SUR, YUNG RIZZO RN, REBECA MONTAÑO, JUVENTINO Position Verified Positioning Yes Verified by Anesthesia Positioning Yes Verified by Surgeon Last Modified By: Camryn Limon RN-PATIENT CARE BEDSIDE NON-EXEMPT 03/08/21 12:05:51 [facility] IntraOp Sign In Entry 1 Patient, Site, Yes Procedure Identified Surgical Consent Yes Confirmed Relevant Surgical Yes Documents Available Surgical Site N/A Marked by person performing procedure Anesthesia Machine Yes Check Completed Medication Checks Yes Completed Allergies Yes Airway Difficult No Airway/Aspiration Risk Difficult Yes Airway/Aspiration Intervention Equipment Available Blood Loss Risk No Blood Loss Yes Intervention Equipment Prepared and Ready Blood Identifiers Yes Verified Per Policy Hypothermia Risk Yes Warming Measures Yes Taken Last Modified By: Camryn Limon RN-PATIENT CARE BEDSIDE NON-EXEMPT 03/08/21 12:06:18 [facility] Intra Op Sign Out Entry 1 RN Confirmation Surgical Yes Procedure(s) Identified Instrument, Sponge Yes and Sharps Counts Correct/Documented Equipment Problems Yes Documented Specimen Labeled N/A Correctly Urinary Catheter N/A Documented in IView Wound Yes classification reviewed, verified and updated post case in both the General Case Data and Procedure segments Bravo Patient Yes Recovery Concerns Reviewed with Anesthesia Provider, Surgeon and RN Bravo Patient Yes Management Concerns Reviewed with Anesthesia Provider, Surgeon and RN Safety Checklist Yes Elements Complete? RN Sign Out Camryn Limon, Signature RN-PATIENT CARE BEDSIDE NON-EXEMPT RN Sign Out 03/08/21 12:02:00 Signature Date/Time Plan of Care Outcome - Fire Risk OUTCOME STATEMENT: Goal met Patient is free from injury related to surgical fire Plan of Care Outcome - Pt Positioning OUTCOME STATEMENT: Goal met Absence of signs and symptoms of positioning injury. Plan of Care Outcome - Skin Prep OUTCOME STATEMENT: Goal met Intraoperative care is consistent with measures to prevent infection Plan of Care Outcome - Xray/Images OUTCOME STATEMENT: N/A Absence of observable signs or symptoms of radiation injury Plan of Care Outcome - Counts OUTCOME STATEMENT: Goal met Absence of signs and symptoms of injury related to extraneous objects Last Modified By: Camryn Limon RN-PATIENT CARE BEDSIDE NON-EXEMPT 03/08/21 12:07:15 [facility] Intra Op Sign Out Audit 03/08/21 12:07:15 Financial Aid Advisor: [id number] Modifier: [id number] <*> RN Sign Out Signature Date/Time 03/08/21 12:06:00 [facility] IntraOp Skin Prep Entry 1 Procedure Verruca Excision(Bilateral) Prescribed N/A Pre-Surgical Prep Completed Prep Area BILATERAL FEET Intraop Prep Integumentary WDL Assessment WDL Prep Agents Chloraprep Prep by YUNG RIZZO RN Hair Removal Methods No hair removal performed Last Modified By: Camryn Limon RN-PATIENT CARE BEDSIDE NON-EXEMPT 03/08/21 12:08:00 [facility] IntraOp Surgical Procedures Entry 1 Procedure Verruca Excision Modifiers Bilateral Additional BILATERAL FEET Procedure DESTRUCTUION OF PLANTAR Description VERRUCA Primary Procedure Yes Primary Surgeon TAI MYRICK DPM-REGGIE Start 03/08/21 11:41:00 Stop 03/08/21 11:51:00 Anesthesia Type MAC Specialty Podiatry Wound Class 1 - Clean Last Modified By: Camryn Limon RN-PATIENT CARE BEDSIDE NON-EXEMPT 03/08/21 12:07:38 [facility] IntraOp Time Out Entry 1 Procedure to be Verruca Performed Excision(Bilateral) Time Out Time Out Pause Time 03/08/21 11:33:00 All activity Yes suspended (unless life threatening emergency) Team Verbally Correct patient Confirms Information identity, Correct side and site are marked, Consent form is present and accurate, Agreement on the procedure to be done, Correct patient position, Confirm antibiotics have been administered, Confirm the skin prep has dried, Performed in location of procedure after prepped/draped, Performed before each procedure if multiple procedures Antibiotic Yes Prophylaxis Administered Or In Progress Within the Last 60 Minutes Beta Regine N/A Administered Venous N/A Thromboembolism Prophylaxis Required Anticipated Critical Events Surgeon None expected Anesthesia Provider Patient specific concerns Essential Imaging Yes Labeled and Displayed Last Modified By: YUNG RIZZO RN 03/08/21 11:38:08 Case Comments <None> Finalized By: Camryn Limon RN-PATIENT CARE BEDSIDE NON-EXEMPT Document Signatures Signed By: Limon, Crystal, RN-PATIENT CARE BEDSIDE NON-EXEMPT 03/08/21 12:10 Electronically signed by Priya, [facility] Conversion Relationship Management Lead Cerner at 08/11/2022 7:35 PM CDT documented in this encounter Plan of Treatment Not on file documented as of this encounter Visit Diagnoses Not on filedocumented in this encounter
--- OUTSIDE RECORDS SUMMARY | 2024-10-10 13:12 | XMS_ITS | Encounter Summary ---
Author Organization [employer] Address [address] [place] [address] Care Team Providers Care Cooking Instructor Name Role Phone Unavailable Primary Care Provider Unavailabl e Encounter Details Date Type Department Care Team (Late st Contact Info) Description 03/08/2021 Transcribed Document [facility] [place] [facility] [address] [place] [address] ProviderHenny MD [address], [place] [id number] Social History Tobacco Use Types Packs/Day Years Used Date Smoking Tobacco: Never Assessed Comments Unknown Sex and Gender Information Value Date Recorded Sex Assigned at Not on file Legal Sex Female 7:12 PM CDT Gender Identity Not on file Sexual Orientation Not on file documented as of this encounter Miscellaneous Notes * Cerner Conversion Note - Historical ProviderMD - 03/08/2021 12:10 PM [employer] [place] [address] ROSANNA LIMH :2005 Visit Time:03/08/2021 What to do next Your Diagnosis Pain in right foot, Pain in right foot Instructions From Your Care Team Weight bear as tolerated Dressing left clean, dry and Intact for 3 days Can Change dressing with Band-Aids Keep follow up appt for next week. Follow-Up Appointments Follow Up with TAI MYRICK DPM-SUR When Within 2 to 3 days Comments Appointment has been made Where: [address] [place] [id number]- Medications Take your medications faithfully. Do NOT skip medication. Do NOT stop taking medications without the direction of a physician. Carry a list of your medications with you at all times, and take this medication list with you to your first follow up visit. Report any side effects. Avoid herbal remedies unless discussed with your physician. As part of your treatment plan, your physician may have prescribed a limited course of a controlled substance. This medication may be given to help people with moderate or severe pain or for other medical conditions, but there are risks involved with treatment. Common side effects may include nausea, constipation, drowsiness, sweating, itching, dry mouth, and rash. More serious side effects may include cognitive and motor impairment, like problems with thinking, concentrating, alertness, and movement (e.g. slowed reflexes), and driving and operating heavy machinery can be dangerous. It is important for you to talk to your physician if you have these side effects or questions. These controlled substances can produce physical dependence and be habit-forming if taken for an extended period of time, which means that the body has gotten used to them and may experience withdrawal symptoms if they are abruptly stopped. Withdrawal symptoms can include runny nose, sweating, goose bumps, diarrhea, abdominal cramping, rapid heartbeat, difficulty sleeping, and nervousness. Please dispose of unused and medications per pharmacy guidance. Education Materials Heel Pad Atrophy Heel pad atrophy is [...] activities that cause pain. ??? Taking an [id number] pain reliever or anti-inflammatory medicine. ??? Wearing [...] Leave the ice on for 20 minutes, 2???3 times a day. ??? Move your toes [...] health care provider. General instructions ??? Take dffq-yau-lhjpiil and prescription medicines only as told by [...] provider. Document Revised: 04/14/2019 Document Reviewed: 04/14/2019 Knowledge Factor Patient Education ?? 2020 [employer]. Emergency Awareness and Preventative Care STROKE is an EMERGENCY Every Minute Counts Act FAST and Check for these signs: FACE Does the face look uneven? ARM Does one arm drift down? SPEECH Does their speech sound strange? TIME Call at any sign of stroke Stroke Risk Factors Atrial Fibrillation (irregular heartbeat) Diabetes Family history of stroke Heart Disease Heavy alcohol use High Blood Pressure High Cholesterol Physical inactivity and obesity Smoking Cigarette Smoking The facts are clear, cigarette smoking will shorten your life. Smoking can cause many illnesses along the way. As a healthcare provider, we recommend that you stop smoking. Assistance with quitting is available by contacting 9-352-RKVU-NOW. This is a free resource providing counseling, support, and referral. Or you may contact your personal physician. National Suicide Prevention Lifeline: The National Suicide Prevention Lifeline is a national network of local crisis centers that provides free and confidential emotional support to people in suicidal crisis or emotional distress 24 hours a day, 7 days a week. Don't Wait! Stop a Heart Attack Before it Starts What is a heart attack? A heart attack is damage or to a part of the heart from severely decreased or lack of blood flow to the heart. Over time, arteries can become narrow from the buildup of fat and cholesterol, which is called plaque. The plaque can rupture causing a blood clot to form. When the blood clot forms, the artery can become severely narrowed or completely blocked, causing a heart attack. Heart attack is the leading cause of in the [place]. 85% of muscle damage occurs within the first 2 hours. Delay in the recognition of heart attack symptoms increases the chances of . Know the early symptoms of a heart attack: Nausea Feeling of fullness in chest Jaw Pain Pain that travels down one or both arms Fatigue/being tired Anxiety Back Pain Chest pressure, squeezing, or discomfort Shortness of breath Sweating, or a cold sweat Feeling of impending doom There are unusual signs of a heart attack, too! Women, the elderly, and diabetics may present with atypical symptoms: Fainting/dizziness Weakness Confusion Risk Factors for a Heart Attack Some heart disease risk factors, such as age and family history, cannot be changed. Others, like smoking and lack of exercise, can be changed. Smoking High Cholesterol High Blood Pressure Family History Obesity Age Gender (Males are at higher risk) Lack of Exercise Diabetes Diet Stress Excessive Alcohol Intake If you or someone you know is experiencing the signs and symptoms of a heart attack, DON???T DELAY. Call immediately and seek help. If someone collapses, perform CPR! Do not attempt to drive if you are having symptoms of heart attack. Hands-Only CPR Why Hands-Only CPR? Hands-Only CPR has been shown to be as effective as conventional CPR for cardiac arrests that occur outside of a hospital. Survival depends on immediately receiving CPR from someone nearby. How do you perform Hands-Only CPR? There are two easy steps: Call if you see a teen or adult collapse Push hard and fast in the center of the chest at a beat of 100 beats per minute. Save a life! 4 WAYS TO GET AHEAD OF SEPSIS SEPSIS is a MEDICAL EMERGENCY. Time matters! Infections put you and your family at risk for a life-threatening condition called sepsis. Sepsis is the body's extreme response to an infection. It is life-threatening, and without timely treatment, sepsis can rapidly lead to tissue damage, organ failure, and . Sepsis happens when an infection you already have-in your skin, lungs, urinary tract or somewhere else-triggers a chain reaction throughout your body. 1 PREVENT INFECTIONS Take good care of chronic conditions. Talk to your doctor about getting the recommended vaccines. 2 PRACTICE GOOD HYGIENE Wash your hands frequently. Keep cuts or open sores clean and covered until they are healed. 3 KNOW THE SYMPTOMS Confusion or disorientation Shortness of breath High heart rate Fever, shivering, or feeling very cold Extreme pain or discomfort Clammy or sweaty skin 4 ACT FAST Get medical care IMMEDIATELY if you suspect sepsis or if you have an infection that is not getting better or is getting worse. To learn more about sepsis and how to prevent infections, visit www.cdc.gov/sepsis. Test Results Laboratory or Other Results This Visit (last charted value for your 03/08/2021 visit) Hematology 03/04/2021 10:07 AM WBC: 4.9 K/uL -- Normal range between ( 3.9 and 10.0 ) RBC: 4.48 Million/uL -- Normal range between ( 3.93 and 5.22 ) Hct: 41.4 % -- Normal range between ( 34.1 and 44.9 ) Hgb: 13.8 Gram/dL -- Normal range between ( 11.2 and 15.7 ) Platelet Count: 224 K/uL -- Normal range between ( 163 and 369 ) MCH: 30.8 pg -- Normal range between ( 25.6 and 32.2 ) MCHC: 33.3 Gram/dL -- Normal range between ( 32.3 and 36.5 ) MCV: 92.4 fL -- Normal range between ( 79.0 and 94.8 ) Slide Review: No Eos %: 4.1 % -- Normal range between ( 1.0 and 7.0 ) Ward #: 0.58 K/uL -- Normal range between ( 0.24 and 0.82 ) Eos #: 0.20 K/uL -- Normal range between ( 0.04 and 0.54 ) Ward %: 11.8 % -- Normal range between ( 4.7 and 12.5 ) Baso %: 0.6 % -- Normal range between ( 0.0 and 1.0 ) Baso #: 0.03 K/uL -- Normal range between ( 0.01 and 0.08 ) RDW: 12.1 % -- Normal range between ( 11.6 and 14.4 ) Neut %: 61.1 % -- Normal range between ( 34.0 and 71.0 ) Neut #: 3.01 K/uL -- Normal range between ( 1.56 and 6.13 ) Lymph %: 22.2 % -- Normal range between ( 19.3 and 53.0 ) Lymph #: 1.09 K/uL -- Normal range between ( 1.18 and 3.74 ) MPV: 10.7 fL -- Normal range between ( 9.4 and 12.4 ) IG#: 0 x10(3)/uL IG%: 0 % -- Normal range between ( 0 and 1 ) Microbiology 03/04/2021 1:00 PM SARS-CoV-2 (COVID19 PCR): Negative General Chemistry 03/04/2021 10:07 AM Creatinine Level: 0.64 mg/dL -- Normal range between ( 0.57 and 0.97 ) Sodium Level: 140 mmol/L -- Normal range between ( 136 and 146 ) Potassium Level: 3.7 mmol/L -- Normal range between ( 3.5 and 5.1 ) Chloride Level: 107 mmol/L -- Normal range between ( 102 and 112 ) Carbon Dioxide Level: 27 mmol/L -- Normal range between ( 21 and 32 ) Anion Gap: 10 -- Normal range between ( 9 and 20 ) Bilirubin Total: 0.5 mg/dL -- Normal range between ( 0.1 and 2.0 ) A/G Ratio: 1.2 -- Normal range between ( 1.1 and 2.5 ) ALT: 15 Units/Liter -- Normal range between ( 12 and 78 ) AST: 12 Units/Liter -- Normal range between ( 14 and 40 ) Globulin: 3.2 Gram/dL -- Normal range between ( 1.5 and 4.5 ) Alk Phos: 106 Units/Liter -- Normal range between ( 38 and 110 ) Bun/Creatinine: 9.4 -- Normal range between ( 8.0 and 20.0 ) Calcium Level: 8.7 mg/dL -- Normal range between ( 8.5 and 10.1 ) eGFR : N/A mL/min/1.73m2 eGFR NonAfrican: N/A mL/min/1.73m2 Glucose Level: 67 mg/dL -- Normal range between ( 74 and 106 ) Blood Urea Nitrogen: 6 mg/dL -- Normal range between ( 7 and 22 ) Protein Total: 7.2 Gram/dL -- Normal range between ( 6.1 and 8.0 ) Albumin Level: 4.0 Gram/dL -- Normal range between ( 2.7 and 4.4 ) Endocrinology 03/08/2021 9:39 AM HCG Urine Qualitative: Negative Patient Name:NICHO LIM I have received this information and was given the opportunity to ask questions. Patient/Cloth Examiner Name: Patient/Cloth Examiner Signature: Relationship to Patient: Clinician/Hospital Cloth Examiner Signature: Date: documented in this encounter Plan of Treatment Not on file documented as of this encounter Visit Diagnoses Not on filedocumented in this encounter
--- OUTSIDE RECORDS SUMMARY | 2024-10-10 13:12 | XMS_ITS | Encounter Summary ---
Author Organization [employer] Address [address] [place] [address] Care Team Providers Care Diesel Service Journeyman Name Role Phone Unavailable Primary Care Provider Unavailabl e Encounter Details Date Type Department Care Team (Late st Contact Info) Description 03/08/2021 Transcribed Document [facility] [place] [address] ProviderHenny MD [address], [place] [id number] Social History Tobacco Use Types Packs/Day Years Used Date Smoking Tobacco: Never Assessed Comments Unknown Sex and Gender Information Value Date Recorded Sex Assigned at Not on file Legal Sex Female 7:12 PM CDT Gender Identity Not on file Sexual Orientation Not on file documented as of this encounter Miscellaneous Notes * Cerner Conversion Note - Historical ProviderMD - 03/08/2021 9:47 AM PECAN PICKER PAT Adult Entered On: 03/08/2021 9:50 EST Performed On: 03/08/2021 9:47 EST by NURIS ROYAL RN Vital Measurements Temperature Source : Temporal artery scanning Temperature Mode : Fahrenheit Temperature, Fahrenheit : 98.3 Deg F Clinical Temperature, C : 36.8 Deg C Pulse Method : Non-Invasive BP Device Peripheral Pulse Rate : 87 bpm Respiratory Rate : 16 Breaths/Min Blood Pressure Location : Arm, left upper Blood Pressure Source : Non-Invasive BP Device Blood Pressure Position : Sitting Systolic Blood Pressure : 109 mmHg Diastolic Blood Pressure : 65 mmHg Oxygen Saturation : 100 % Oxygen Therapy Mode : Room air NURIS ROYAL RN - 03/08/2021 9:47 EST Pain Assessment Pain Assessment : Initial assessment Pain Scale Goal : 3 Pain Scale Used : 0-10 Scale NURIS ROYAL RN - 03/08/2021 9:47 EST Height and Weight, Clinical Dosing Height Source : Stated Height Entry Format : [place] Height, Feet : 5 ft(Converted to: 152 cm, 60 Inch) Height, Inches : 3.5 Inch(Converted to: 0 ft 4 Inch, 8.89 cm) Clinical Height : 161.29 cm Weight Source : Standing scale Weight Entry Format : [place] Clinical Dosing Weight : 52.27 kg Weight, Pounds : 115 lb Body Surface Area (BSA) : 1.54 m2 Body Mass Index : 20.1 kg/m2 [place] Body Weight : 53 kg NURIS ROYAL RN - 03/08/2021 9:47 EST Health Histories Smoking Status : Never (less than 100 in lifetime; none in last 30 days) Smokeless Tobacco Status : Never NURIS ROYAL RN - 03/08/2021 9:47 EST Social History (As Of: 03/08/2021 09:50:54 EST) Tobacco: Never (less than 100 in lifetime) Smoking Status. (Last Updated: 03/04/2021 10:02:51 EST by SCOUT CHOI RN) Alcohol: Alcohol Use History No. (Last Updated: 03/04/2021 10:02:51 EST by SCOUT CHOI RN) Substance Abuse: Drug Use Hx: No. (Last Updated: 03/04/2021 10:02:51 EST by SCOUT CHOI RN) Infectious Disease History Does patient have symptoms of COVID-19? : No Has the Patient Been Tested for COVID-19 in the last 14 days? : Yes, Patient stated results Negative Where and When was COVID19 testing completed? : 03-04-2021 Does the Patient state known exposure to a COVID-19 positive case in the last 14 days? : No Patient Vaccinated for COVID-19 : Fully vaccinated NURIS ROYAL RN - 03/08/2021 9:47 EST Infectious Disease Risk Screening Grid Cough < 2 wks of unknown origin : NO Cough > 2 weeks : NO Blood in Sputum : NO Fever or self-reported Fever : NO Rash of unknown origin : NO Headache : NO Stiff neck : NO Night Sweats : NO Unexplained Weight Loss : NO Diarrhea (3 episode per day) : NO NURIS ROYAL RN - 03/08/2021 9:47 EST Physical contact outside [place] in the last 30 days : No Hospitalized in Foreign Country : No Infectious Disease History : Influenza INF Disease TB Screening Calc : 0 INF Disease Recent Travel Calc : 0 NURIS ROYAL RN - 03/08/2021 9:47 EST COVID19 PreProcedure Screening Is this an Emergent or Add on Procedure? : No Date PreProcedure COVID-19 test known? : Yes Date of PreProcedure COVID-19 : 03/04/2021 EST Has patient been isolated since the test : No Exposed to COVID19 symptoms since test? : No NURIS ROYAL RN - 03/08/2021 9:47 EST Anesthesia/Transfusion History Family History of Anesthesia Reaction : No prior transfusion(s) Transfusion History : No prior anesthesia Family History of Anesthesia Reaction : None NURIS ROYAL RN - 03/08/2021 9:47 EST Functional Assessment Functional ADL Evaluation Index EBN Bathing : Independent (2) Dressing : Independent (2) Toileting : Independent (2) Transferring Bed or Chair : Independent (2) Continence : Independent (2) Feeding : Independent (2) NURIS ROYAL RN - 03/08/2021 9:47 EST ADL Index Score : 12 NURIS ROYAL RN - 03/08/2021 9:47 EST Advance Directive Patient has Advance Directive *Q : No, patient refuses Advance Directive information NURIS ROYAL RN - 03/08/2021 9:47 EST Spiritual/Cultural Needs Any Spiritual/Cultural Needs or Requests : Yes NURIS ROYAL RN - 03/08/2021 9:47 EST [place] Suicide Severity Rating Scale (C-SSRS) CSSRS Past Month Wish to be : No CSSRS Past Month Suicidal Thoughts : No CSSRS Lifetime Suicide Behavior : No Suicide Severity Rating Score : 0 Suicide Severity Rating : No Additional Care Required at this time NURIS ROYAL RN - 03/08/2021 9:47 EST Psychosocial History Currently in Unsafe Situation : No NURIS ROYAL RN - 03/08/2021 9:47 EST Teaching/Learning Assessment Barriers To Learning : None evident Individuals Taught : Patient NURIS ROYAL RN - 03/08/2021 9:47 EST General Info Arrived From : Home Mode of Arrival on Unit : Ambulatory Legal Guardian : Mother Want Family/Rep/Phys Notified of Admit : No Emergency Contact #1 : Adela Akbar Emergency Contact #1 Emergency Contact #1 Relationship : mother Emergency Contact #2 : *- Emergency Contact #2 Phone Number : - Emergency Contact #2 Relationship : - Information Obtained From : Mother Primary Language : Yoruba Communication Barrier : None Value Advisor Needed : No NURIS ROYAL RN - 03/08/2021 9:47 EST Elías Scale Elías Sensory Perception : No impairment Elías Moisture : Rarely moist Elías Activity : Walks frequently Elías Mobility : No limitation Elías Nutrition : Excellent Elías Friction and Shear : No apparent problem Elías Score : 23 NURIS ROYAL RN - 03/08/2021 9:47 EST Sleep Apnea Risk Assmt Hx of Obstructive Sleep Apnea Diagnosis : No Snore Loudly : No Tired, Fatigued, or Sleepy During Day : No Observed Stopping Breathing During Sleep : No Have/Are Being Treated for Hypertension : No BMI Greater Than 35 kg/m2 : No Age over 50 Years Old : No Neck Circumference Greater Than 40 cm : No Gender Male : No STOP-BANG Sleep Apnea Risk Level Score : 0 NURIS ROYAL RN - 03/08/2021 9:47 EST Pain Scale Intensity : 0 NURIS ROYAL RN - 03/08/2021 9:47 EST Image 4 - Images currently included in the form version of this document have not been included in the text rendition version of the form. documented in this encounter Plan of Treatment Not on file documented as of this encounter Visit Diagnoses Not on filedocumented in this encounter
--- OUTSIDE RECORDS SUMMARY | 2024-10-10 13:12 | XMS_ITS | Encounter Summary ---
Author Organization [employer] Address [address] [place] [address] Care Team Providers Care Edi Programmer Name Role Phone Unavailable Primary Care Provider Unavailabl e Encounter Details Date Type Department Care Team (Late st Contact Info) Description 03/04/2021 Transcribed Document [facility] [place] Medicine [facility] [place] [address] ProviderHenny MD [address], [place] [id number] Social History Tobacco Use Types Packs/Day Years Used Date Smoking Tobacco: Never Assessed Comments Unknown Sex and Gender Information Value Date Recorded Sex Assigned at Not on file Legal Sex Female 7:12 PM CDT Gender Identity Not on file Sexual Orientation Not on file documented as of this encounter Miscellaneous Notes * Cerner Conversion Note - Historical ProviderMD - 03/04/2021 10:03 AM [employer] BILLER PAT Adult Entered On: 03/04/2021 10:07 EST Performed On: 03/04/2021 10:03 EST by SCOUT CHOI RN Vital Measurements Temperature Source : Temporal artery scanning Temperature, Fahrenheit : 97.6 Deg F Clinical Temperature, C : 36.4 Deg C Peripheral Pulse Rate : 89 bpm Respiratory Rate : 16 Breaths/Min Systolic Blood Pressure : 112 mmHg Diastolic Blood Pressure : 61 mmHg Oxygen Saturation : 99 % Oxygen Therapy Mode : Room air SCOUT CHOI RN - 03/04/2021 10:03 EST Height and Weight, Clinical Dosing Height Source : Stated Height Entry Format : [place] Height, Feet : 5 ft(Converted to: 152 cm, 60 Inch) Height, Inches : 3.5 Inch(Converted to: 0 ft 4 Inch, 8.89 cm) Clinical Height : 161.29 cm Weight Source : Standing scale Weight Entry Format : [place] Clinical Dosing Weight : 52.27 kg Weight, Pounds : 115 lb Body Surface Area (BSA) : 1.54 m2 Body Mass Index : 20.1 kg/m2 [place] Body Weight : 53 kg SCOUT CHOI RN - 03/04/2021 10:03 EST Health Histories Smoking Status : Never (less than 100 in lifetime; none in last 30 days) Smokeless Tobacco Status : Never SCOUT CHOI RN - 03/04/2021 10:03 EST Social History (As Of: 03/04/2021 10:07:46 EST) Tobacco: Never (less than 100 in [...] COVID-19 in the last 14 days? : No, Patient stated Does the Patient state known exposure to a COVID-19 positive case in the last 14 days? : No Patient Vaccinated for COVID-19 : Fully vaccinated SCOUT CHOI RN - 03/04/2021 10:03 EST Infectious Disease Risk Screening Grid Cough < 2 wks of unknown origin : NO Cough > 2 weeks : NO Blood in Sputum : NO Fever or self-reported Fever : NO Rash of unknown origin : NO Headache : NO Stiff neck : NO Night Sweats : NO Unexplained Weight Loss : NO Diarrhea (3 episode per day) : NO SCOUT CHOI RN - 03/04/2021 10:03 EST Patient Masked? : Yes Physical contact outside US in the last 30 days : No Hospitalized in Foreign Country : No Infectious Disease History : Influenza INF Disease TB Screening Calc : 0 INF Disease Recent Travel Calc : 0 SCOUT CHOI RN - 03/04/2021 10:03 EST COVID19 PreProcedure Screening Is this an Emergent or Add on Procedure? : No Date PreProcedure COVID-19 test known? : No Has patient been isolated since the test : N/A - PreProcedure, in-person visit Exposed to COVID19 symptoms since test? : N/A - PreProcedure, in-person visit SCOUT CHOI RN - 03/04/2021 10:03 EST Anesthesia/Transfusion History Family History of Anesthesia Reaction : No prior transfusion(s) Transfusion History : No prior anesthesia Family History of Anesthesia Reaction : None SCOUT CHOI RN - 03/04/2021 10:03 EST Functional Assessment Functional ADL Evaluation Index EBN Bathing : Independent (2) Dressing : Independent (2) Toileting : Independent (2) Transferring Bed or Chair : Independent (2) Continence : Independent (2) Feeding : Independent (2) SCOUT CHOI RN - 03/04/2021 10:03 EST ADL Index Score : 12 SCOUT CHOI RN - 03/04/2021 10:03 EST Advance Directive Patient has Advance Directive *Q : No, patient refuses Advance Directive information SCOUT CHOI RN - 03/04/2021 10:03 EST [place] Suicide Severity Rating Scale (C-SSRS) CSSRS Past Month Wish to be : No CSSRS Past Month Suicidal Thoughts : No CSSRS Lifetime Suicide Behavior : No Suicide Severity Rating Score : 0 Suicide Severity Rating : No Additional Care Required at this time SCOUT CHOI RN - 03/04/2021 10:03 EST Psychosocial History Currently in Unsafe Situation : No SCOUT CHOI RN - 03/04/2021 10:03 EST Teaching/Learning Assessment Barriers To Learning : None evident Individuals Taught : Patient Readiness to Learn : Cooperative Readiness to Learn : Explanation, Printed materials SCOUT CHOI RN - 03/04/2021 10:03 EST Education Topics, Periop Preadmission Perioperative Education Grid Arrival Time/Place : Verbalizes understanding CHG Preoperative Bathing/Cloths : Verbalizes understanding Infection Control : Verbalizes understanding NPO Status/Directions : Verbalizes understanding Preprocedure Preparations : Verbalizes understanding Preprocedure Tests/Labs : Verbalizes understanding Remove Body Piercings : Verbalizes understanding Responsible Adult : Verbalizes understanding Take/Hold Medications Pre-Procedure : Verbalizes understanding SCOUT CHOI RN - 03/04/2021 10:03 EST General Info Want Family/Rep/Phys Notified of Admit : No Emergency Contact #1 : Adela Akbar Emergency Contact #1 Emergency Contact #1 Relationship : mother Emergency Contact #2 : *- Emergency Contact #2 Phone Number : - Emergency Contact #2 Relationship : - Primary Language : Iraqi Communication Barrier : None Customer Energy Specialist Needed : No SCOUT CHOI RN - 03/04/2021 10:03 EST Elías Scale Elías Sensory Perception : No impairment Elías Moisture : Rarely moist Elías Activity : Walks frequently Elías Mobility : No limitation Elías Nutrition : Excellent Elías Friction and Shear : No apparent problem Elías Score : 23 SCOUT CHOI RN - 03/04/2021 10:03 EST Sleep Apnea Risk Assmt Hx of [...] Sleep Apnea Risk Level Score : 0 SCOUT CHOI RN - 03/04/2021 10:03 EST documented in this encounter Plan of Treatment Not on file documented as of this encounter Visit Diagnoses Not on filedocumented in this encounter
--- OUTSIDE RECORDS SUMMARY | 2024-10-10 13:12 | XMS_ITS | Referral Summary ---
Author Organization [employer] Address [address] [place] [address] Care Team Providers Care Lead Application Architect Name Role Phone Unavailable Primary Care Provider [...]
--- OUTSIDE RECORDS SUMMARY | 2024-10-10 13:12 | XMS_ITS | Encounter Summary ---
Author Organization [employer] Address [address] [place] [address] Care Team Providers Care Last Code Striper Name Role Phone Unavailable Primary Care Provider Unavailabl e Encounter Details Date Type Department Care Team (Late st Contact Info) Description 03/08/2021 Transcribed Document [facility] [place] [facility] [place] [address] ProviderHenny MD [facility] [place] [id number] Social History Tobacco Use Types Packs/Day Years Used Date Smoking Tobacco: Never Assessed Comments Unknown Sex and Gender Information Value Date Recorded Sex Assigned at Not on file Legal Sex Female 7:12 PM CDT Gender Identity Not on file Sexual Orientation Not on file documented as of this encounter Miscellaneous Notes * Cerner Conversion Note - Historical ProviderMD - 03/08/2021 11:56 AM SCUTCHER TENDER Patient: NICHO LIM Age: 15 Years Sex: Female : 2005 *Operation Destruction of plantar verruca to bilateral feet Local nerve block bilateral feet Indication for Surgery This 15 year old female presented to clinic with history of plantar verruca to her feet for several months. She has previous had it excised in the office by another office runner and it had come back. She stated that he wanted a more definitive treatment. She exhausted conservative and over the counter treatments and wanted surgical excision. I explained all risks and benefits of the procedure in detail. All questions were answered. No guarantees given. She presents today for excision of the plantar verruca. Physical exam: Vascular: DP and PT pulses palpable +2/4 to bilateral feet. Dermatological: 6 lesions to the left foot and 2 lesions to the right foot of plantar verruca noted. Interruption in skin lines is noted. Pain with lateral compression is noted. No open lesions noted. Neurological: Protective sensation noted to be grossly intact to bilateral feet. Musculoskeletal: Pain on palpation to plantar foot at the lesion sites bilaterally *Preoperative Diagnosis Plantar verruca bilateral feet Pain bilateral feet *Postoperative Diagnosis Plantar verruca bilateral feet Pain bilateral feet *Surgeon(s) Primary Surgeon TAI MYRICK DPM-SUR (Surgeon/Proceduralist, First) *Procedure Narrative The patient was seen in the preoperative holding area where the consent was discussion and confirmed. All questions were answered. No guarantees given. The operative foot was confirmed and marked. The patient was then taken from the preop holding area to the operating room and placed on the OR bed in the supine position. IV anesthesia was then administered by the anesthesiologist. At this time, the bilateral foot was prepped using chloroprep and draped in the normal sterile fashion. Time out was called and the procedure and patient were confirmed. At this time, a local block was given to the foot bilaterally using a total of 10 cc of 1 % lidocaine and 0.5 % Marcaine plain in a 1:1 mixture. Next, on inspection there was noted to be a plantar verruca to the plantar right forefoot and left forefoot with a total of 6 lesions noted to the left foot and 2 lesions to the right foot. Using the CO2 laser on the standardized setting, the verruca were then destroyed to the level of the dermis. After destruction, the lesions were debrided sharply using 15 blade. This process was then repeated using the laser until satisfactory amount of excision was noted. The remainder of the soft tissue and dermis had an appearance without verruca. At this time, applied triple antibiotic ointment, 4x4 gauze, and Kerlix to the foot bilaterally in a mildly compression dressing. The patient tolerated the procedure and anesthesia well. She was awoken from anesthesia with vital signs stable and vascular status intact. She was transported to the post op area where she received oral and written post op instructions. She will discharged home when stable. Follow up has been scheduled for next week. Anesthesia MAC *Estimated Blood Loss Minimal *Findings Hemostasis: None Materials: None Injectable: 5 cc of 1% lidocaine and 0.5% Marcaine plain 1:1 mix to each foot *Specimen(s) None Complications None Technique Condition: Stable Date of Service 03/08/2021 Electronically signed by Shukri Powers Conversion Correctional Supply Supervisor Cerner at 08/11/2022 7:20 PM CDT documented in this encounter Plan of Treatment Not on file documented as of this encounter Visit Diagnoses Not on filedocumented in this encounter
== END 2024-10-10 23:59 | disposition home or self-care (01) ==
LOC: RAD 13:09
PROVIDERS: PCP Nurse Practitioner; Visit Provider Nurse Practitioner
DX: R10.11 Right upper quadrant pain (principal); N13.30 Unspecified hydronephrosis
CPT/HCPCS: 76705

== ENCOUNTER 2024-10-20 10:46 | Outpatient (CLI) | payer BC, OTHER, SELFPAY ==
--- OUTSIDE RECORDS SUMMARY | 2024-10-20 10:51 | XMS_ITS | Encounter Summary ---
Author Organization [employer] ([place], [place], [place], [place]) Address [address] [place] [address] Care Team Providers Care Computerized Machine Fabric Cutter Name Role Phone Unavailable Primary Care Provider Unavailabl e Encounter Details Date Type Department Care Team (Late st Contact Info) Description 03/04/2021 Transcribed Document [facility] [place] [facility] [place] [address] ProviderHenny MD [address] [place] [id number] Social History Tobacco Use Types Packs/Day Years Used Date Smoking Tobacco: Never Assessed Comments Unknown Sex and Gender Information Value Date Recorded Sex Assigned at Not on file Legal Sex Female 7:12 PM CDT Gender Identity Not on file Sexual Orientation Not on file documented as of this encounter Miscellaneous Notes * Cerner Conversion Note - Henny ProviderMD - 03/04/2021 9:00 AM REFRIGERATION MANAGER Patient: NICHO LIM Age: 15 Years Sex: [...] assistive device. She was seen at Dr Cheung's office and evaluated and she was offered [...] # 1.09 K/uL (Low) 03/04/2021 10:07 EST Wright % 11.8 % 03/04/2021 10:07 EST Wright # 0.58 K/uL 03/04/2021 10:07 EST Eos % 4.1 % 03/04/2021 10:07 EST Eos # 0.20 K/uL 03/04/2021 10:07 EST Baso % 0.6 % 03/04/2021 10:07 EST Baso # 0.03 K/uL 03/04/2021 10:07 EST Slide Review No 03/04/2021 10:07 EST IG# 0 x10(3)/uL 03/04/2021 10:07 EST IG% 0 % 03/04/2021 10:07 EST Electronically signed by [employer] Conversion Waiter/Waitress Tavern Cerner at 08/11/2022 7:33 PM CDT documented in this encounter Plan of Treatment Not on file documented as of this encounter Visit Diagnoses Not on filedocumented in this encounter
--- OUTSIDE RECORDS SUMMARY | 2024-10-20 10:51 | XMS_ITS | Encounter Summary ---
Author Organization [employer] ([place], [place], [place], [place]) Address [address] [place] [address] Care Team Providers Care Chief Operator Name Role Phone Unavailable Primary Care Provider Unavailabl e Encounter Details Date Type Department Care Team (Late st Contact Info) Description 03/08/2021 Transcribed Document [facility] [place] [address] [place] [address] ProviderHenny MD [address] [place] [address] Social History Tobacco Use Types [...] - Historical ProviderMD - 03/08/2021 12:10 [place] [address] NICHO LIM :2005 Visit Time:03/08/2021 What to do next [...] Comments Appointment has been made [facility] [facility] [address] [place] [id number] Medications Take your medications faithfully. Do NOT [...] activities that cause pain. ??? Taking an ghwl-wum-vmlmxmw pain reliever or anti-inflammatory medicine. ??? Wearing [...] health care provider. General instructions ??? Take jila-pzh-dlsiwac and prescription medicines only as told by [...] provider. Document Revised: 04/14/2019 Document Reviewed: 04/14/2019 [employer] Patient Education ?? 2020 [employer] Emergency Awareness and Preventative Care STROKE is [...] Assistance with quitting is available by contacting 3-112-AJHV-NOW. This is a free resource providing counseling, [...] range between ( 1.0 and 7.0 ) O'Brien #: 0.58 K/uL -- Normal range between ( 0.24 and 0.82 ) Eos #: 0.20 K/uL -- Normal range between ( 0.04 and 0.54 ) O'Brien %: 11.8 % -- Normal range between [...] was given the opportunity to ask questions. Patient/Waistline Joiner Lockstitch Name: Patient/Waistline Joiner Lockstitch Signature: Relationship to Patient: Clinician/Hospital Waistline Joiner Lockstitch Signature: Date: documented in this encounter Plan of Treatment Not on file documented as of this encounter Visit Diagnoses Not on filedocumented in this encounter
--- OUTSIDE RECORDS SUMMARY | 2024-10-20 10:51 | XMS_ITS | Clinical Summary ---
Author Organization [employer] ([place], [place], [place], [place]) Address [address] [place] [address] Care Team Providers Care Sawmilling Operator Name Role Phone Unavailable Primary Care [...]
--- OUTSIDE RECORDS SUMMARY | 2024-10-20 10:51 | XMS_ITS | Continuity of Care Document ---
Author Organization [facility] [employer], [employer] [facility] Address [address] [place] [address] Care Team Providers Care Completion Manager Name Role Phone GITA HEADLEY Preparer Assessment No assessment recorded. Plan of Treatment Reminders Order Date Submit Date Provider Last Modified By Organization Details Last Modified Time Details Appointments None recorded. Lab None recorded. Referral None recorded. Procedures None recorded. Surgeries None recorded. Imaging US, gallbladder 2024 025 [facility] (Scheduling), [address], [place], [address], 5 14:12:25 Medication Orders None recorded. Patient TargetsNo targets recorded. Patient InstructionsNo instructions recorded. Reason for Referral None Reported. Results Created Date Observation Date Name Description Value Unit Range Abnormal Flag Note LastModifiedBy Organization Detail LastModifiedTime 10/11/19 25 10/10/2024 US, gallb ladde r No observ ation record ed. [facility] [address], [place], [address], 10/10/2024 16:02:21 Result Notes None recorded. Problems Name Problem SNOMED Code Status Onset Date Resolution Date Notes Provider Name and Address Organization Details Recorded Time Sore throat 754174990 Active 2024 Annalisa isaac, [facility] [employer]. 5 15:17:35 Candidia sis of vulva 7897841 Completed 202007/29/2020 Not Available [facility] 20:57:15 Migraine with aura 8388885 Active 2019 Problem Code: G43.109; Problem Code Type: ICD-10; Not Available [facility] 2 20:57:15 Tension- type headache 737078121 Active 2018 Problem Code: G44.209; Problem Code Type: ICD-10; Not Available [facility] 2 20:57:15 Acute frontal sinusiti s 24628243 Completed 201905/16/2019 Problem Code: J01.10; Problem Code Type: ICD-10; Not Available [facility] 2 20:57:15 Acute pharyngi tis 049759852 Active 2018 Not Available [facility] 2 20:57:15 Acute pharyngi tis 242969424 Completed 201805/16/2019 Not Available [facility] 2 20:57:15 Acute pharyngi tis 203746131 Completed 202005/03/2021 Not Available [facility] 2 20:57:16 Allergic rhinitis 93698380 Active 2019 Problem Code: J30.9; Problem Code Type: ICD-10; Not Available [facility] 2 20:57:16 Allergic rhinitis 98626443 Completed 201805/16/2019 Problem Code: J30.9; Problem Code Type: ICD-10; Not Available [facility] 2 20:57:16 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 56725909831 9100 Completed 201805/16/2019 Problem Code: M41.124; Problem Code Type: ICD-10; Not Available [facility] 2 20:57:16 Pain in thoracic spine 390599590 Completed 201805/16/2019 Problem Code: M54.6; Problem Code Type: ICD-10; Not Available [facility] 2 20:57:16 Urinary tract infectio us disease 76393527 Active 2021 Problem Code: N39.0; Problem Code Type: ICD-10; Not Available [facility] 2 20:57:16 Vaginola bial hernia Active 2020 Problem Code: N89.8; Problem Code Type: ICD-10; Not Available [facility] 2 20:57:16 Vaginola bial hernia Completed 202005/03/2021 Problem Code: N89.8; Problem Code Type: ICD-10; Not Available [facility] 2 20:57:17 Irregula r periods 02410645 Active 2021 Not Available [facility] 2 20:57:17 Premenop ausal menorrha aris Active 2021 Not Available [facility] 2 20:57:17 Abnormal uterine bleeding 65801465701 100 Completed 201912/02/2019 Problem Code: N93.8; Problem Code Type: ICD-10; Not Available [facility] 2 20:57:17 Finding of frequenc y of menstrua tion 866456921 Active 2019 Not Available [facility] 2 20:57:17 Amenorrh ea 04019691 Active 2020 Problem Code: N91.2; Problem Code Type: ICD-10; Not Available [facility] 2 20:57:17 Dysmenor alivia 387789943 Active 2021 Not Available [facility] 2 20:57:18 Cough 04186795 Active 2019 Problem Code: R05; Problem Code Type: ICD-10; Not Available [facility] 2 20:57:18 Dysuria 63490999 Completed 202105/10/2021 Problem Code: R30.0; Problem Code Type: ICD-10; Not Available [facility] 2 20:57:18 Dysuria 23966312 Active 2021 Problem Code: R30.0; Problem Code Type: ICD-10; Not Available [facility] 2 20:57:18 Headache 30960567 Completed 201805/16/2019 Problem Code: R51; Problem Code Type: ICD-10; Not Available [facility] 2 20:57:18 Abnormal finding on evaluati on procedur e 975762461 Active 2019 Not Available [facility] 2 20:57:19 Syphilis test finding 548995589 Active 2019 Problem Code: Z11.3; Problem Code Type: ICD-10; Not Available [facility] 2 20:57:19 Exposure to SARS-CoV -2 Active 2020 Problem Code: Z20.822; Problem Code Type: ICD-10; Not Available [facility] 2 20:57:19 Influenz a vaccine needed 64167194744 06 Active 2019 Problem Code: Z23; Problem Code Type: ICD-10; Not Available [facility] 2 20:57:19 Contrace ptive sheath status 569418813 Active 2018 Problem Code: Z30.018; Problem Code Type: ICD-10; Not Available [facility] 2 20:57:19 Contrace ption care manageme nt Active 2021 Problem Code: Z30.9; Problem Code Type: ICD-10; Not Available [facility] 2 20:57:20 Contrace ptive sheath status 887595612 Completed 201812/02/2019 Problem Code: Z30.018; Problem Code Type: ICD-10; Not Available [facility] 2 20:57:21 Surveill ance of contrace ption Completed 201805/03/2021 Not Available [facility] 2 20:57:21 Finding of body mass index 073841519 Active 2020 Problem Code: Z68.1; Problem Code Type: ICD-10; Not Available [facility] 2 20:57:21 Finding of body mass index 986467610 Completed 202108/21/2021 Problem Code: Z68.1; Problem Code Type: ICD-10; Not Available [facility] 2 20:57:22 Body mass index 20-24 - normal 763707139 Active 2021 Not Available [facility] 2 20:57:22 Normal body mass index 36058975 Active 2019 Problem Code: Z68.52; Problem Code Type: ICD-10; Not Available [facility] 2 20:57:22 Normal body mass index 92878944 Completed 201905/10/2020 Problem Code: Z68.52; Problem Code Type: ICD-10; Not Available [facility] 2 20:57:23 Urinary tract infectio us disease 04658408 Completed 202106/20/2021 Problem Code: N39.0; Problem Code Type: ICD-10; Not Available [facility] 2 20:57:23 Influenz a vaccine needed 74838071558 Completed 202005/03/2021 Problem Code: Z23; Problem Code Type: ICD-10; Not Available [facility] 2 20:57:24 Influenz a vaccine needed 56673214855 06 Completed 202005/03/2021 Problem Code: Z23; Problem Code Type: ICD-10; Not Available [facility] 2 20:57:25 Finding of viabilit y of pregnanc y 085418625 Active 2021 Not Available [facility] 2 20:57:25 Finding of body mass index 902076998 Completed 202007/01/2020 Problem Code: Z68.1; Problem Code Type: ICD-10; Not Available [facility] 2 20:57:25 Normal body mass index 49927446 Completed 202105/10/2021 Problem Code: Z68.52; Problem Code Type: ICD-10; Not Available [facility] 2 20:57:26 Problem Notes None recorded. Procedures Surgical History Date Name Laterality Status Provider Name and Address Organization Details Recorded Time procedure on foot completed Annalisa Roland [facility] [employer]. 03/12/2023 16:34:27 Imaging Results None recorded. Procedure [...] Updated DateTime 5 160.02 cm 22.7 kg/m2 79677.8 2 g 97.8 [degF] 117 /min 98 % 98 % 116 mm[Hg] 80 mm[Hg] Annalisa Roland [facility] [employer], [facility]. 5 10:24:53 Social History Question Answer Notes LastModified by Organizat ion Details LastModified Time Tobacco Smoking Status Never Smoker SocialHis toryQuest ion: 'Tobacco/ Alcohol/S upplement s'; SocialHis toryRespo nse: 'Never Smoker'; Not Available [facility] 12/27/2021 23:01:30 Is Your Home Air Conditioned? [...] Recorded Time HPV9 8 completed Annalisa isaac [employer] 09/15/2023 08:42:57 HPV9 9 completed Annalisa isaac [employer] 09/15/2023 08:42:57 ZEpA-Gvl-XSI 4 completed Not Available [facility] 12/27/2021 23:51:07 SAdQ-Vpz-KNV 4 completed Not Available [facility] 12/27/2021 23:51:07 LZpL-Mpx-ZYQ 4 completed Not Available [facility] 12/27/2021 23:51:07 DTaP 8 completed Not Available [facility] 12/27/2021 23:51:07 DTaP 5 completed Not Available [facility] 12/27/2021 23:51:07 MMR 8 completed Not Available [facility] 12/27/2021 23:51:07 MMR 5 completed Not Available [facility] 12/27/2021 23:51:08 IPV 8 completed Not Available [facility] 12/27/2021 23:51:08 Tdap 5 completed Not Available [facility] 12/27/2021 23:51:08 varicella 8 completed Not Available [facility] 12/27/2021 23:51:08 varicella 5 completed Not Available [facility] 12/27/2021 23:51:08 COVID-19, mRNA, LNP-S, PF, 30 mcg/0.3 mL dose 1 completed Not Available [facility] 12/27/2021 23:51:08 COVID-19, mRNA, LNP-S, PF, 30 mcg/0.3 mL dose 1 completed Not Available [facility] 12/27/2021 23:51:08 Hep B, unspecified formulation 4 completed Not Available [facility] 12/27/2021 23:51:08 Hep B, unspecified formulation 4 completed Not Available [facility] 12/27/2021 23:51:08 Hep B, unspecified formulation 4 completed Not Available [facility] 12/27/2021 23:51:08 Hib, unspecified formulation 4 completed Annalisa isaac, [employer] 09/15/2023 08:42:57 Hib, unspecified formulation 4 completed Annalisa Roland null, [employer] 09/15/2023 08:42:57 Hib, unspecified formulation 4 completed Annalisa Roland null, [employer] 09/15/2023 08:42:57 meningococcal ACWY, unspecified formulation 5 completed Annalisa Roland null, [employer] 09/15/2023 08:42:57 polio, unspecified formulation 8 completed Annalisa Goshen null, [employer] 09/15/2023 08:42:57 polio, unspecified formulation 4 completed Annalisa Goshen null, [employer] 09/15/2023 08:42:57 polio, unspecified formulation 4 completed Annalisa Goshen null, [employer] 09/15/2023 08:42:57 polio, unspecified formulation 4 completed Annalisa Sevillally null, [employer] 09/15/2023 08:42:57 Hep A, ped/adol, 2 dose 8 completed Annalisa Sevillally null, [employer] 09/15/2023 08:42:57 Hep A, ped/adol, 2 dose 9 completed Annalisa Sevillally null, [employer] 09/15/2023 08:42:57 Meningococcal MCV4O 0 completed Annalisa Sevillally null, [employer] 09/15/2023 08:42:57 Influenza, split virus, trivalent, PF 4 completed Not Available [facility] 10/10/2024 10:12:24 Past Encounters Encounter ID Performer Location Encounter Start Date Encounter Closed Date Diagnosis/Indication Diagnosis SNOMED-CT Code Diagnosis ICD10 Code Diagnosis Note [id number] Melody Barnett APRN [address] [address] 10/10/2024 10:11:26 10/10/2024 10:46:13 Right upper quadrant pain 193778974 R10.11 Acute diarrhea 123294902 R19.7 Body mass index 20-24 - normal 062970187 Z68.22 Health Concerns Section Related Observation LastModified by Organization [employer]ger LastModified Time None Recorded Concern Status LastModified by Organization Details LastModified Time None Recorded Payers Encounter Date Sequence Insurance Name Policy Number Policy Ponce Covered Member ID Ponce Member ID Guarantor Name 10/10/2024 1 [employer] [id number] Paulina Nieto [id number] Paulina Nieto Notes Date Note Type [...] foods, increase water. Melody Barnett APRN [address] [facility], [place], [address], [facility] [employer] 10/10/2024 10:52:57 OBGyn Episode No OBEpisode recorded.
--- OUTSIDE RECORDS SUMMARY | 2024-10-20 10:51 | XMS_ITS | Encounter Summary ---
Author Organization [employer] ([place], [place], [place], [place]) Address [address] [place] [address] Care Team Providers Care Testing Projects Administrator Name Role Phone Unavailable Primary Care Provider Unavailabl e Encounter Details Date Type Department Care Team (Late st Contact Info) Description 03/08/2021 Transcribed Document [facility] [place] [facility] [place] [address] ProviderHenny MD [address] [place], [place] [phone] Social History Tobacco Use Types Packs/Day Years Used Date Smoking Tobacco: Never Assessed Comments Unknown Sex and Gender Information Value Date Recorded Sex Assigned at Not on file Legal Sex Female 7:12 PM CDT Gender Identity Not on file Sexual Orientation Not on file documented as of this encounter Miscellaneous Notes * Cerner Conversion Note - Historical ProviderMD - 03/08/2021 9:50 AM SHOT CORE DRILL OPERATOR HELPER Spiritual Care Assessment Entered On: 03/08/2021 10:14 EST Performed On: 03/08/2021 10:00 EST by QUAN WASHINGTON Chaplain General Information Initial Visit : Yes Referred by : Nurse Referral Reason Comment : pre-surgery prayer Ministry Provided to : Patient, Family/Significant other Spiritual/Emotional Acuity : Low Spiritual Framework : Unknown Mu-Ism Preference : Unknown QUAN WASHINGTON Chaplain - [...] with her feet for quite some time. Prayed with patient and mom for her surgery and recovery. Spirital Assessment Comment/Summary Report : SPIRITUAL ASSESSMENT COMMENT/SUMMARY No qualifying data available. QUAN WASHINGTON Chaplain - 03/08/2021 10:12 EST Interventions Emotional Support : Empathic/Engaged listening, Established trust, Family/Significant other supported, Feelings expressed, Hope strengths identified, Relationship strengths identified Spiritual and Mu-Ism : Prayer shared QUAN WASHINGTON Chaplain - 03/08/2021 10:12 EST documented in this encounter Plan of Treatment Not on file documented as of this encounter Visit Diagnoses Not on filedocumented in this encounter
--- OUTSIDE RECORDS SUMMARY | 2024-10-20 10:51 | XMS_ITS | Encounter Summary ---
Author Organization [employer] ([place], [place], [place], [place]) Address [address] [place] [address] Care Team Providers Care Derrick Car Operator Name Role Phone Unavailable Primary Care Provider Unavailabl e Encounter Details Date Type Department Care Team (Late st Contact Info) Description 03/04/2021 Transcribed Document [facility] [place] [facility] [place] [address] ProviderHenny MD [address], [place] [id number] Social History Tobacco Use Types Packs/Day Years Used Date Smoking Tobacco: Never Assessed Comments Unknown Sex and Gender Information Value Date Recorded Sex Assigned at Not on file Legal Sex Female 7:12 PM CDT Gender Identity Not on file Sexual Orientation Not on file documented as of this encounter Miscellaneous Notes * Cerner Conversion Note - Historical ProviderMD - 03/04/2021 10:03 AM MOTOR AND GENERATOR ASSEMBLER PAT Adult Entered On: 03/04/2021 10:07 EST [...] Source : Stated Height Entry Format : [place] Height, Feet : 5 ft(Converted to: 152 cm, 60 Inch) Height, Inches : 3.5 Inch(Converted to: 0 ft 4 Inch, 8.89 cm) Clinical Height : 161.29 cm Weight Source : Standing scale Weight Entry Format : [place] Clinical Dosing Weight : 52.27 kg Weight, Pounds : 115 lb Body Surface Area (BSA) : 1.54 m2 Body Mass Index : 20.1 kg/m2 [place] Body Weight : 53 kg SCOUT CHOI [...] SCOUT CHOI RN - 03/04/2021 10:03 EST [place] Suicide Severity Rating Scale (C-SSRS) CSSRS Past [...] #2 Relationship : - Primary Language : Hungarian Communication Barrier : None Production Support Analyst Needed : No SCOUT CHOI RN - [...]
--- OUTSIDE RECORDS SUMMARY | 2024-10-20 10:51 | XMS_ITS | Encounter Summary ---
Author Organization [employer] ([place], [place], [place], [place]) Address [address] [place] [address] Care Team Providers Care Impregnator [employer] Products Name Role Phone Unavailable Primary Care Provider Unavailabl e Encounter Details Date Type Department Care Team (Late st Contact Info) Description 03/08/2021 Transcribed Document [facility] [place] Family [place] [facility] [place] [address] ProviderHenny MD [address] [place], [place] [phone] Social History Tobacco Use Types Packs/Day Years Used Date Smoking Tobacco: Never Assessed Comments Unknown Sex and Gender Information Value Date Recorded Sex Assigned at Not on file Legal Sex Female 7:12 PM CDT Gender Identity Not on file Sexual Orientation Not on file documented as of this encounter Miscellaneous Notes * Cerner Conversion Note - Historical ProviderMD - 03/08/2021 11:41 AM SKATE HOP S[facility] Main OR PACU Summary Primary Physician: TAI MYRICK DPM-SUR Finalized Date/Time: 03/08/21 12:13:13 Pt. Name: NICHO NIETO/Sex: 2005 Female Med Rec #: [id number] Physician: TAI MYRICK DPM-SUR Financial #: [id number] Pt. Type: O Room/Bed: [facility]/5 Admit/Disch: 03/08/21 04:40:00 - Institution: [facility] Main OR PACU Case Times Entry 1 In PACU I 03/08/21 12:01:00 Ready for PACU 03/08/21 12:12:00 Discharge Discharge from PACU 03/08/21 12:12:00 I Last Modified By: CHRISTINE LING, PIC-QM-PSHQ-OP CAR 03/08/21 12:13:05 Finalized By: CHRISTINE LING, [place]-PN-UNSJ-OP CAR Document Signatures Signed By: CHRISTINE LING, OMY-RZ-RRCZ-OP CAR 03/08/21 12:13 documented in this encounter Plan of Treatment Not on file documented as of this encounter Visit Diagnoses Not on filedocumented in this encounter
--- OUTSIDE RECORDS SUMMARY | 2024-10-20 10:51 | XMS_ITS | Data Portability ---
Author Organization [facility] [employer] [facility] Address [address] [place] [address] Care Team Providers Care Finishing Lab Technician Name Role Phone MYESHAGITA CABALLERO Pulpwood Cutter Assessment No assessment recorded. Plan of Treatment Reminders Order Date Submit Date Provider Last Modified By Organization Details Last Modified Time Details Appointments None recorded. Lab rapid strep group A, throat [address], [address], 5 15:25:22 rapid flu (A+B) [address], [address], 5 15:25:22 rapid SARS CoV 2 Ag, QL, [place], upper respiratory specimen [address], [address], 5 15:25:22 Referral None recorded. Procedures None recorded. Surgeries None recorded. Imaging US, gallbladder 2024 025 [facility] [address], [place], [address], 5 14:12:25 Medication Orders amoxicillin 875 mg tablet 2024 025 [facility], [address] [place] [address], [address], 5 11:45:38 topiramate 50 mg tablet 2024 025 [facility], [address] [place] [address], [address], 5 11:45:37 ondansetron 4 mg disintegrat ing tablet 2023 025 [facility], [address] [place] [address], [address], 15:04:31 topiramate 25 mg tablet 2023 025 [facility], [address] [place] [address], [address], 15:04:32 topiramate 50 mg tablet 2023 024 twiedemer 1 [facility], [address] [place] [address], [address], 5 10:26:09 sumatriptan 50 mg tablet 2022 023 twiedemer 1 [facility], [address] [place] [address], [address], 5 10:26:07 Patient TargetsNo targets recorded. Patient InstructionsNo instructions recorded. Reason for Referral None Reported. Results Created Date Observation Date Name Description Value Unit Range Abnormal Flag Note LastModifiedBy Organization Detail LastModifiedTime 05/01/1905/01/2024 rapid strep group A, throa t Strep positi ve Not Available [address], [address], 05/01/2024 15:17:42 05/01/19 25 05/01/2024 rapid flu (A+B) Flu A negati ve Not Available [address], [address], 05/01/2024 15:17:43 05/01/19 25 05/01/2024 rapid flu (A+B) Flu B negati ve Not Available [address], [address], 05/01/2024 15:17:43 05/01/19 25 05/01/2024 rapid SARS CoV 2 Ag, QL, [place], upper respi rator y speci men SARS CoV Ag negati ve Not Available [address], [address], 05/01/2024 15:17:45 09/02/19 25 09/01/2024 US, sukie tric No observ ation record ed. [email or web address] [facility] [address], [place], [address], 09/01/2024 17:49:09 10/11/19 25 10/10/2024 US, dona chirinos r No observ ation record ed. [facility] [address], [place], [address], 10/10/2024 16:02:21 Result Notes None recorded. Problems Name Problem SNOMED Code Status Onset Date Resolution Date Notes Provider Name and Address Organization Details Recorded Time Sore throat 426941604 Active 2024 Annalisa isaac [place] - [employer] 15:17:35 Candidia sis of vulva 2576721 Completed 202007/29/2020 Not Available [facility] 2 20:57:15 Migraine with aura 5381478 Active 2019 Problem Code: G43.109; Problem Code Type: ICD-10; Not Available [facility] 2 20:57:15 Tension- type headache 442482342 Active 2018 Problem Code: G44.209; Problem Code Type: ICD-10; Not Available [facility] 2 20:57:15 Acute frontal sinusiti s 61240966 Completed 201905/16/2019 Problem Code: J01.10; Problem Code Type: ICD-10; Not Available [facility] 2 20:57:15 Acute pharyngi tis 246801494 Active 2018 Not Available [facility] 2 20:57:15 Acute pharyngi tis 220520551 Completed 201805/16/2019 Not Available [facility] 2 20:57:15 Acute pharyngi tis 531389977 Completed 202005/03/2021 Not Available [facility] 2 20:57:16 Allergic rhinitis 58720790 Active 2019 Problem Code: J30.9; Problem Code Type: ICD-10; Not Available [facility] 2 20:57:16 Allergic rhinitis 43574092 Completed 201805/16/2019 Problem Code: J30.9; Problem Code Type: ICD-10; Not Available [facility] 2 20:57:16 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 46550803019 9100 Completed 201805/16/2019 Problem Code: M41.124; Problem Code Type: ICD-10; Not Available [facility] 2 20:57:16 Pain in thoracic spine 755757526 Completed 201805/16/2019 Problem Code: M54.6; Problem Code Type: ICD-10; Not Available [facility] 2 20:57:16 Urinary tract infectio us disease 43692127 Active 2021 Problem Code: N39.0; Problem Code Type: ICD-10; Not Available [facility] 2 20:57:16 Vaginola bial hernia Active 2020 Problem Code: N89.8; Problem Code Type: ICD-10; Not Available [facility] 2 20:57:16 Vaginola bial hernia Completed 202005/03/2021 Problem Code: N89.8; Problem Code Type: ICD-10; Not Available [facility] 2 20:57:17 Irregula r periods 99696013 Active 2021 Not Available [facility] 2 20:57:17 Premenop ausal menorrha aris Active 2021 Not Available [facility] 2 20:57:17 Abnormal uterine bleeding 26506741342 100 Completed 201912/02/2019 Problem Code: N93.8; Problem Code Type: ICD-10; Not Available [facility] 2 20:57:17 Finding of frequenc y of menstrua tion 517705792 Active 2019 Not Available [facility] 2 20:57:17 Amenorrh ea 02640398 Active 2020 Problem Code: N91.2; Problem Code Type: ICD-10; Not Available [facility] 2 20:57:17 Dysmenor alivia 124792241 Active 2021 Not Available [facility] 2 20:57:18 Cough 10883142 Active 2019 Problem Code: R05; Problem Code Type: ICD-10; Not Available [facility] 2 20:57:18 Dysuria 10442926 Completed 202105/10/2021 Problem Code: R30.0; Problem Code Type: ICD-10; Not Available [facility] 2 20:57:18 Dysuria 00536761 Active 2021 Problem Code: R30.0; Problem Code Type: ICD-10; Not Available [facility] 2 20:57:18 Headache 07264904 Completed 201805/16/2019 Problem Code: R51; Problem Code Type: ICD-10; Not Available [facility] 2 20:57:18 Abnormal finding on evaluati on procedur e 204391343 Active 2019 Not Available [facility] 2 20:57:19 Syphilis test finding 261313806 Active 2019 Problem Code: Z11.3; Problem Code Type: ICD-10; Not Available [facility] 2 20:57:19 Exposure to SARS-CoV -2 Active 2020 Problem Code: Z20.822; Problem Code Type: ICD-10; Not Available [facility] 2 20:57:19 Influenz a vaccine needed 19903331349 06 Active 2019 Problem Code: Z23; Problem Code Type: ICD-10; Not Available [facility] 2 20:57:19 Contrace ptive sheath status 069709264 Active 2018 Problem Code: Z30.018; Problem Code Type: ICD-10; Not Available [facility] 2 20:57:19 Contrace ption care manageme nt Active 2021 Problem Code: Z30.9; Problem Code Type: ICD-10; Not Available [facility] 2 20:57:20 Contrace ptive sheath status 205675617 Completed 201812/02/2019 Problem Code: Z30.018; Problem Code Type: ICD-10; Not Available [facility] 2 20:57:21 Surveill ance of contrace ption Completed 201805/03/2021 Not Available [facility] 2 20:57:21 Finding of body mass index 381293030 Active 2020 Problem Code: Z68.1; Problem Code Type: ICD-10; Not Available [facility] 2 20:57:21 Finding of body mass index 831365171 Completed 202108/21/2021 Problem Code: Z68.1; Problem Code Type: ICD-10; Not Available [facility] 2 20:57:22 Body mass index 20-24 - normal 173575295 Active 2021 Not Available [facility] 2 20:57:22 Normal body mass index 91032850 Active 2019 Problem Code: Z68.52; Problem Code Type: ICD-10; Not Available [facility] 2 20:57:22 Normal body mass index 04107174 Completed 201905/10/2020 Problem Code: Z68.52; Problem Code Type: ICD-10; Not Available [facility] 2 20:57:23 Urinary tract infectio us disease 01777020 Completed 202106/20/2021 Problem Code: N39.0; Problem Code Type: ICD-10; Not Available [facility] 2 20:57:23 Influenz a vaccine needed 24362577679 06 Completed 202005/03/2021 Problem Code: Z23; Problem Code Type: ICD-10; Not Available [facility] 2 20:57:24 Influenz a vaccine needed 55403385064 Completed 202005/03/2021 Problem Code: Z23; Problem Code Type: ICD-10; Not Available [facility] 2 20:57:25 Finding of viabilit y of pregnanc y 385449469 Active 2021 Not Available [facility] 2 20:57:25 Finding of body mass index 084237758 Completed 202007/01/2020 Problem Code: Z68.1; Problem Code Type: ICD-10; Not Available [facility] 2 20:57:25 Normal body mass index 45843019 Completed 202105/10/2021 Problem Code: Z68.52; Problem Code Type: ICD-10; Not Available [facility] 2 20:57:26 Problem Notes None recorded. Procedures Surgical History Date Name Laterality Status Provider Name and Address Organization Details Recorded Time procedure on foot completed Annalisa Roland [facility] [employer] 03/12/2023 16:34:27 Imaging Results None recorded. Procedure [...] 4 160.02 cm 37 % 20.7 kg/m2 03800.0 1 g 85 /min 98 % 98 % 109 mm[Hg] 68 mm[Hg] Annalisa Bettery 4 14:08:29 Date Recorded Body height Body mass index (BMI) Body mass index (BMI) [Percentile] Per age and sex Body weight Heart rate Oxygen saturation Oxygen saturation in Arterial blood by Pulse oximetry Body temperature Systolic blood pressure Diastolic blood pressure Provider Name and Address Organization Details Last Updated DateTime 5 160.02 cm 19.9 kg/m2 26 % 00182.0 5 g 86 /min 99 % 99 % 97.8 [degF] 107 mm[Hg] 73 mm[Hg] Annalisa [place] [employer] 5 14:56:47 Date Recorded Body height Body mass index (BMI) Body mass index (BMI) [Percentile] Per age and sex Body weight Heart rate Oxygen saturation Oxygen saturation in Arterial blood by Pulse oximetry Systolic blood pressure Diastolic blood pressure Provider Name and Address Organization Details Last Updated DateTime 4 160.02 cm 20.7 kg/m2 37 % 78570.3 1 g 87 /min 97 % 97 % 110 mm[Hg] 75 mm[Hg] Annalisa Roland [employer] 4 08:49:50 Date Recorded Body height Body mass index (BMI) Body weight Body temperature Heart rate Oxygen saturation Oxygen saturation in Arterial blood by Pulse oximetry Systolic blood pressure Diastolic blood pressure Provider Name and Address Organization Details Last Updated DateTime 5 160.02 cm 22.7 kg/m2 76666.8 2 g 97.8 [degF] 117 /min 98 % 98 % 116 mm[Hg] 80 mm[Hg] Annalias Roland [employer] 5 10:24:53 Date Recorded Body mass index (BMI) [Percentile] Per age and sex Body mass index (BMI) Body height Provider Name and Address Organization Details Last Updated DateTime 03/12/2023 47 % 21.4 kg/m2 160.02 cm Melody Barnett APRN [address] [place] [address], [address], [employer] 03/12/2023 17:48:28 Date Recorded Body weight Heart rate Oxygen saturation Oxygen saturation in Arterial blood by Pulse oximetry Systolic blood pressure Diastolic blood pressure Provider Name and Address Organization Details Last Updated DateTime 3 94760.2 4 g 79 /min 99 % 99 % 118 mm[Hg] 72 mm[Hg] Annalisa [place]vill[place] [employer] 3 16:31:30 Social History Question Answer Notes LastModified by Organizat ion Details LastModified Time Tobacco Smoking Status Never Smoker SocialHis toryQuest ion: 'Tobacco/ Alcohol/S upplement s'; SocialHis toryRespo nse: 'Never Smoker'; Not Available [facility] 12/27/2021 23:01:30 Is Your Home Air Conditioned? [...] Recorded Time HPV9 8 completed Annalisa isaac [employer] 09/15/2023 08:42:57 HPV9 9 completed Annalisa isaac [employer] 09/15/2023 08:42:57 EKnH-Ozk-RQX 4 completed Not Available [facility] 12/27/2021 23:51:07 HVmW-Tyd-MFW 4 completed Not Available [employer] 12/27/2021 23:51:07 XGlH-Rag-RFT 4 completed Not Available [employer] 12/27/2021 23:51:07 DTaP 8 completed Not Available [facility] 12/27/2021 23:51:07 DTaP 5 completed Not Available [facility] 12/27/2021 23:51:07 MMR 8 completed Not Available [facility] 12/27/2021 23:51:07 MMR 5 completed Not Available [facility] 12/27/2021 23:51:08 IPV 8 completed Not Available [facility] 12/27/2021 23:51:08 Tdap 5 completed Not Available [facility] 12/27/2021 23:51:08 varicella 8 completed Not Available [facility] 12/27/2021 23:51:08 varicella 5 completed Not Available [facility] 12/27/2021 23:51:08 COVID-19, mRNA, LNP-S, PF, 30 mcg/0.3 mL dose 1 completed Not Available [facility] 12/27/2021 23:51:08 COVID-19, mRNA, LNP-S, PF, 30 mcg/0.3 mL dose 1 completed Not Available [facility] 12/27/2021 23:51:08 Hep B, unspecified formulation 4 completed Not Available [facility] 12/27/2021 23:51:08 Hep B, unspecified formulation 4 completed Not Available [facility] 12/27/2021 23:51:08 Hep B, unspecified formulation 4 completed Not Available [facility] 12/27/2021 23:51:08 Hib, unspecified formulation 4 completed Annalisa isaac, [employer] 09/15/2023 08:42:57 Hib, unspecified formulation 4 completed Annalisa isaac, [employer] 09/15/2023 08:42:57 Hib, unspecified formulation 4 completed nAnalisa isaac, [employer] 09/15/2023 08:42:57 meningococcal ACWY, unspecified formulation 5 completed Annalisa Sevill[place] null, [employer] 09/15/2023 08:42:57 polio, unspecified formulation 8 completed Annalisa [place] null, [employer] 09/15/2023 08:42:57 polio, unspecified formulation 4 completed Annalisa [place] null, [employer] 09/15/2023 08:42:57 polio, unspecified formulation 4 completed Annalisa [place] null, [employer] 09/15/2023 08:42:57 polio, unspecified formulation 4 completed Annalisaboni Kapadiay null, [employer] 09/15/2023 08:42:57 Hep A, ped/adol, 2 dose 8 completed Annalisa [place] null, [employer] 09/15/2023 08:42:57 Hep A, ped/adol, 2 dose 9 completed Annalisa [place] null, [employer] 09/15/2023 08:42:57 Meningococcal MCV4O 0 completed Annalisa [place] null, [employer] 09/15/2023 08:42:57 Influenza, split virus, trivalent, PF 4 completed Not Available [facility] 10/10/2024 10:12:24 Past Encounters Encounter ID Performer Location Encounter Start Date Encounter Closed Date Diagnosis/Indication Diagnosis SNOMED-CT Code Diagnosis ICD10 Code Diagnosis Note [id number] Melody Barnett [address] [address] 03/12/2023 16:19:56 03/12/2023 17:00:26 Migraine without aura 78631685 G43.009 Body mass index 20-24 - normal 944421538 Z68.21 [id number] Melody Barnett [address] [address] 05/01/2023 13:55:39 05/01/2023 14:54:29 Fatigue 84165612 R53.83 Anxiety disorder 9052623 06 F41.9 Body mass index 20-24 - normal 105593706 Z68.21 [id number] [place] [address] 09/15/2023 08:40:18 09/15/2023 09:07:48 Migraine 68689106 G43.909 Nausea 686591793 R11.0 Body mass index 20-24 - normal 904848090 Z68.21 [id number] [place] [address] 05/01/2024 13:53:31 05/01/2024 16:55:57 Migraine 24011683 G43.909 Sore throat 882968822 J0 2.9 Streptococ kevin sore throat 55060302 J02.0 Body mass index less than 20 093304404 Z68.1 [id number] [place] [address] 10/10/2024 10:11:26 10/10/2024 10:46:13 Right upper quadrant pain 294605600 R10.11 Acute diarrhea 639474589 R19.7 Body mass index 20-24 - normal 313393550 Z68.22 Health Concerns Section Related Observation LastModified by Organization Detai ls LastModified Time None Recorded Concern Status LastModified by Organization Details LastModified Time None Recorded Advance Directives Directive None Recorded Payers Insurance Date Sequence Insurance Name Policy Number Policy Ponce Covered Member ID Ponce Member ID Guarantor Name 05/01/2024 2 [facility] [facility] [id number] [facility] 10/09/2024 1 [facility]PP[facility] [id number] [facility] Emilia [id number] [facility] 03/12/2023 1 *SELF PAY* Sa jessica Nieto 05/01/2024 3 [place] [place] FFS/TRADITI ONAL Paulina Nieto [id number] Paulina Nieto Notes Date Note Type Note [...] stroke like symptoms. Melody Barnett APRN [address] [place], [address], [employer] 03/12/2023 17:49:02 05/01/2023 text/html pt here today [...] for emotional support. Melody Barnett APRN [address] [place], [address], [employer], [employer] 05/01/2023 14:44:47 09/15/2023 text/html pt here today [...] foods to avoid. pt voiced understanding. Melody BarnettKARLOS [address] [facility], [place], [address], [employer], [employer]. 09/15/2023 09:18:09 05/01/2024 text/html pt here today wi th c/o sore throat, cough and congestion x4 days. rapid strep positive. on exam, throat red and dry. ordered abx. educated pt on new med. pt voiced understanding. increase fluids, tylenol/ibuprofen for pain, change toothbrush in 2-3 days. Melody BarnettKARLOS [address] [place], [address], [employer], [employer]. 05/01/2024 15:34:43 10/10/2024 text/html pt here today wi th c/o abd pain and diarrhea x3 days. pt states that the diarrhea started on tu and she just thought she was getting [...] greasy, fatty foods, processed foods, increase water. Melodyvinicius Barnett APRN [address] [place], [address], [employer] 10/10/2024 10:52:57 OBGyn Episode No OBEpisode recorded.
--- OUTSIDE RECORDS SUMMARY | 2024-10-20 10:51 | XMS_ITS | Encounter Summary ---
Author Organization [employer] ([place], [place], [place], [place]) Address [address] [place] [address] Care Team Providers Care Pastry Sous Chef Name Role Phone Unavailable Primary Care Provider Unavailabl e Encounter Details Date Type Department Care Team (Late st Contact Info) Description 03/08/2021 Transcribed Document [facility] [place] [place] Family Medicine [address] [place] [address] ProviderHenny MD [address] [place] [id number] Social History Tobacco Use Types Packs/Day Years Used Date Smoking Tobacco: Never Assessed Comments Unknown Sex and Gender Information Value Date Recorded Sex Assigned at Not on file Legal Sex Female 7:12 PM CDT Gender Identity Not on file Sexual Orientation Not on file documented as of this encounter Miscellaneous Notes * [employer] Conversion Note - Historical ProviderMD - 03/08/2021 11:58 AM OCCUP THER Patient Education Materials Follows: Heel Pad Atrophy [...] activities that cause pain. ??? Taking an bvyr-pzw-swjpfgf pain reliever or anti-inflammatory medicine. ??? Wearing [...] health care provider. General instructions ??? Take jrub-zwf-emixzad and prescription medicines only as told by [...] provider. Document Revised: 04/14/2019 Document Reviewed: 04/14/2019 [employer] Patient Education ? 2020 [facility]. documented in this encounter Plan of Treatment Not on file documented as of this encounter Visit Diagnoses Not on filedocumented in this encounter
--- OUTSIDE RECORDS SUMMARY | 2024-10-20 10:51 | XMS_ITS | Encounter Summary ---
Author Organization [employer] ([place], [place], [place], [place]) Address [address] [place] [address] Care Team Providers Care Certified Personal Chef Name Role Phone Unavailable Primary Care Provider Unavailabl e Encounter Details Date Type Department Care Team (Late st Contact Info) Description 03/08/2021 Transcribed Document [facility] [place] [facility] [place] [address] ProviderHenny MD [address] [place], [place] [phone] Social History Tobacco Use Types Packs/Day Years Used Date Smoking Tobacco: Never Assessed Comments Unknown Sex and Gender Information Value Date Recorded Sex Assigned at Not on file Legal Sex Female 7:12 PM CDT Gender Identity Not on file Sexual Orientation Not on file documented as of this encounter Miscellaneous Notes * Cerner Conversion Note - Historical ProviderMD - 03/08/2021 11:41 AM SECOND WORKER [place] Main OR IntraOp Summary Primary Physician: TIA MYRICK DPM-SUR Finalized Date/Time: 03/08/21 12:10:52 Pt. Name: NICHO NIETO D.O.B./Sex: 2005 Female Med Rec #: [id number] Physician: TAI MYRICK DPM-SUR Financial #: [id number] Pt. Type: O Room/Bed: [facility]/ Admit/Disch: 03/08/21 04:40:00 - Institution: [facility] [place] IntraOp Case Attendance Entry 1 Entry 2 Entry 3 Case Attendee Fermin Uriostegui, Surgical OTHER, ATTENDEE #1 REBECA MONTAÑO, Oracle Dba Cert SUPERVISOR RUBBER COVERING Role Performed Laser Cut Off Machine Operator Student SUPERVISOR RUBBER COVERING/Nurse Registered Nurse Obstetrics Time In 03/08/21 11:23:00 03/08/21 11:35:00 03/08/21 11:23:00 Time Out 03/08/21 12:02:00 03/08/21 12:02:00 03/08/21 12:02:00 Procedure Verruca Verruca Verruca Excision(Bilateral) Excision(Bilateral) Excision(Bilateral) Other Attendee ARNULFO MEDRANO Superficial Wound Closed By: Last Modified By: Camryn Limon Blankenship Crystal, Limon, Crystal, RN-PATIENT CARE BEDSIDE RN-PATIENT CARE BEDSIDE RN-PATIENT CARE BEDSIDE NON-EXEMPT 03/08/21 NON-EXEMPT 03/08/21 NON-EXEMPT 03/08/21 12:10:41 12:10:41 12:10:41 Entry 4 Entry 5 Entry 6 Case Attendee TAI MYRICK, GENARO-Mily Garcia, YUNG DEE, RN Role Performed Surgeon/Proceduralist, Scrub, First Hand Frame Surgical Elastic Knitter, First First Time In 03/08/21 11:23:00 03/08/21 11:23:00 03/08/21 11:23:00 Time Out 03/08/21 12:02:00 03/08/21 12:02:00 03/08/21 11:38:00 Procedure Verruca Verruca Verruca Excision(Bilateral) Excision(Bilateral) Excision(Bilateral) Other Attendee Superficial Wound Closed By: Last Modified By: Camryn Limon, Limon, Crystal, Limon, Crystal, RN-PATIENT CARE BEDSIDE RN-PATIENT CARE BEDSIDE RN-PATIENT CARE BEDSIDE NON-EXEMPT 03/08/21 NON-EXEMPT 03/08/21 NON-EXEMPT 03/08/21 12:10:41 12:10:41 12:10:41 Entry 7 Entry 8 Case Attendee HERIBERTO NIELSON ST Blankenship, Crystal, RN-PATIENT CARE BEDSIDE NON-EXEMPT Role Performed Scrub, First Hand Frame Surgical Elastic Knitter, First Time In 03/08/21 11:23:00 03/08/21 11:35:00 Time Out 03/08/21 11:41:00 03/08/21 12:02:00 Procedure Verruca Verruca Excision(Bilateral) Excision(Bilateral) Other Attendee Superficial Wound Closed By: Last Modified By: Camryn Limon, Camryn Limon, RN-PATIENT CARE BEDSIDE RN-PATIENT CARE BEDSIDE NON-EXEMPT 03/08/21 NON-EXEMPT 03/08/21 12:10:41 12:10:41 [facility] IntraOp Case Attendance Audit 03/08/21 12:10:41 Net Developer Consultant: [id number] Modifier: [id number] <+> Time Out 1 <*> Procedure [...] 8 <*> Procedure Verruca Excision(Bilateral) 03/08/21 12:07:39 Net Developer Consultant: [email or web address] Modifier: [id number] <+> Time In 1 <*> Procedure Verruca Excision(Bilateral) 2 <*> Procedure Verruca Excision(Bilateral) 3 <*> Procedure Verruca Excision(Bilateral) <+> 4 Procedure 5 <+> Time In 5 <*> Procedure Verruca Excision(Bilateral) 6 <*> Procedure Verruca Excision(Bilateral) 7 <*> Procedure Verruca Excision(Bilateral) 8 <*> Procedure Verruca Excision(Bilateral) 03/08/21 11:47:05 Net Developer Consultant: SHY Modifier: [email or web address] 1 <*> Case Attendee TAI MYRICK, GENARO-REGGIE 1 <*> Role Performed Surgeon/Proceduralist, First 1 <+> Procedure 2 <*> Case Attendee REBECA MONTAÑO CRNA 2 <*> Role Performed SUPERVISOR RUBBER COVERING/Nurse Registered Nurse Obstetrics 2 <+> Time In 2 <*> Procedure Verruca Excision(Bilateral) 2 <+> Other Attendee 3 <*> Case Attendee YUNG RIZZO, RN 3 <*> Role Performed Hand Frame Surgical Elastic Knitter, First 3 <+> Time In 3 <*> [...] [facility] IntraOp Case Times Audit 03/08/21 12:08:18 Net Developer Consultant: [id number] Modifier: [id number] <+> 1 Out Room Time <+> 1 Stop Time 03/08/21 11:54:14 Net Developer Consultant: [email or web address] Modifier: [id number] <+> 1 Start Time <+> 1 Stop [...] Other Post-op Transport Stretcher/Gurney Via Patient Transport REBECA MONTAÑO, Accompanied by JUVENTINO, Camryn Limon RN-PATIENT CARE BEDSIDE NON-EXEMPT Last [...] NON-EXEMPT 03/08/21 11:55:44 [facility] IntraOp General Case Edge Stainer 1 Case Information OR OR 10 SJE [...] Limon RN-PATIENT CARE BEDSIDE NON-EXEMPT 03/08/21 11:56:54 [facility] IntraOp Intraoperative Equipment Entry 1 Type Equipment [...] personnel Measures Included received laser safety information, [place] of water/Saline immediately available, Fire extinguisher location [...] Limon RN-PATIENT CARE BEDSIDE NON-EXEMPT 03/08/21 11:59:43 [facility] IntraOp Medication Admin Entry 1 Entry 2 Medication/Irrigant lidocaine 1% 20ml vial Bupivicaine/Marcaine - [id number] 0.5% 30ml - [id number] Combo Med List Time Administered Route of [...] TAI MYRICK DPM-SUR, YUNG RIZZO RN, REBECA MONTAÑO CRNA Position Verified Positioning Yes Verified by Anesthesia [...] Intra Op Sign Out Audit 03/08/21 12:07:15 Net Developer Consultant: [id number] Modifier: [id number] <*> RN Sign Out Signature Date/Time 03/08/21 12:06:00 [facility] IntraOp Skin Prep Entry 1 Procedure Verruca Excision(Bilateral) Prescribed N/A Pre-Surgical Prep Completed Prep Area BILATERAL FEET Intraop Prep Integumentary WDL Assessment WDL Prep Agents Chloraprep Prep by YUNG RIZZO RN Hair Removal Methods No hair removal performed Last Modified By: Camryn iLmon RN-PATIENT CARE BEDSIDE NON-EXEMPT 03/08/21 12:08:00 SJE [...] CARE BEDSIDE NON-EXEMPT Document Signatures Signed By: Camryn Limon RN-PATIENT CARE BEDSIDE NON-EXEMPT 03/08/21 12:10 Electronically signed by [facility], [facility] Conversion Journal Box Inspector Cerner at 08/11/2022 7:35 PM CDT documented in this encounter Plan of Treatment Not on file documented as of this encounter Visit Diagnoses Not on filedocumented in this encounter
--- OUTSIDE RECORDS SUMMARY | 2024-10-20 10:51 | XMS_ITS | Referral Summary ---
Author Organization [employer] ([place], [place], [place], [place]) Address [address] [place] [address] Care Team Providers Care Sql Etl Developer Name Role Phone Unavailable Primary Care Provider [...]
--- OUTSIDE RECORDS SUMMARY | 2024-10-20 10:51 | XMS_ITS | Encounter Summary ---
Author Organization [employer] ([place], [place], [place], [place]) Address [address] [place] [address] Care Team Providers Care Preparer Making Department Name Role Phone Unavailable Primary Care Provider Unavailabl e Encounter Details Date Type Department Care Team (Late st Contact Info) Description 03/08/2021 Transcribed Document [facility] [place] [address] ProviderHenny MD [address] [place] [phone] Social History Tobacco Use Types Packs/Day Years Used Date Smoking Tobacco: Never Assessed Comments Unknown Sex and Gender Information Value Date Recorded Sex Assigned at Not on file Legal Sex Female 7:12 PM CDT Gender Identity Not on file Sexual Orientation Not on file documented as of this encounter Miscellaneous Notes * Cerner Conversion Note - Historical ProviderMD - 03/08/2021 11:55 AM SERVICE CENTER ASSISTANT Patient: NICHO LIM Age: 15 Years Sex: [...] None Complications None Date of Service 03/08/2021 Electronically signed by Priya [facility] Conversion Strand Galvanizer Cerner at 08/11/2022 7:33 PM CDT documented in this encounter Plan of Treatment Not on file documented as of this encounter Visit Diagnoses Not on filedocumented in this encounter
--- OUTSIDE RECORDS SUMMARY | 2024-10-20 10:51 | XMS_ITS | Encounter Summary ---
Author Organization [employer] ([place], [place], [place], [place]) Address [address] [place] [address] Care Team Providers Care Substance Abuse Counselor Name Role Phone Unavailable Primary Care Provider Unavailabl e Encounter Details Date Type Department Care Team (Late st Contact Info) Description 03/08/2021 Transcribed Document [facility] [place] [facility] [place] [address] ProviderHenny MD [address] [place], [place] [phone] Social History Tobacco Use Types Packs/Day Years Used Date Smoking Tobacco: Never Assessed Comments Unknown Sex and Gender Information Value Date Recorded Sex Assigned at Not on file Legal Sex Female 7:12 PM CDT Gender Identity Not on file Sexual Orientation Not on file documented as of this encounter Miscellaneous Notes * Cerner Conversion Note - Historical ProviderMD - 03/08/2021 9:47 AM HANDICRAFTS TEACHER PAT Adult Entered On: 03/08/2021 9:50 EST [...] Source : Stated Height Entry Format : [place] Height, Feet : 5 ft(Converted to: 152 cm, 60 Inch) Height, Inches : 3.5 Inch(Converted to: 0 ft 4 Inch, 8.89 cm) Clinical Height : 161.29 cm Weight Source : Standing scale Weight Entry Format : [place] Clinical Dosing Weight : 52.27 kg Weight, Pounds : 115 lb Body Surface Area (BSA) : 1.54 m2 Body Mass Index : 20.1 kg/m2 [place] Body Weight : 53 kg NURIS ROYAL [...] NURIS ROYAL RN - 03/08/2021 9:47 EST [place] Suicide Severity Rating Scale (C-SSRS) CSSRS Past [...] Obtained From : Mother Primary Language : Portuguese Communication Barrier : None Design/Animation Instructor Needed : No NURIS ROYAL RN - [...]
--- OUTSIDE RECORDS SUMMARY | 2024-10-20 10:51 | XMS_ITS | Encounter Summary ---
Author Organization [employer] ([place], [place], [place], [place]) Address [address] [place] [address] Care Team Providers Care Technical Implementation Lead Name Role Phone Unavailable Primary Care Provider Unavailabl e Encounter Details Date Type Department Care Team (Late st Contact Info) Description 03/08/2021 Transcribed Document [facility] [place] [facility] [place] [address] ProviderHenny MD [address] [place], [place] [phone] Social History Tobacco Use Types Packs/Day Years Used Date Smoking Tobacco: Never Assessed Comments Unknown Sex and Gender Information Value Date Recorded Sex Assigned at Not on file Legal Sex Female 7:12 PM CDT Gender Identity Not on file Sexual Orientation Not on file documented as of this encounter Miscellaneous Notes * Cerner Conversion Note - Historical ProviderMD - 03/08/2021 11:41 AM UNDERCOATER [place] Main OR PreOp Summary Primary Physician: TAI MYRICK DPM-SUR Finalized Date/Time: 03/08/21 16:42:48 Pt. Name: NICHO NIETO/Sex: 2005 Female Med Rec #: [id number] Physician: TAI MYRICK DPM-SUR Financial #: [id number] Pt. Type: O Room/Bed: EAS/5 Admit/Disch: 03/08/21 04:40:00 - 03/08/21 12:37:00 [place] [facility] [place]Op Case Times Entry 1 In Preop 03/08/21 08:25:00 Ready for Holding n/a Room Patient Ready for 03/08/21 10:02:00 Surgery Patient Out of Preop 03/08/21 11:15:00 Patient Out of n/a Holding Room Last Modified By: NURIS ROYAL RN 03/08/21 16:42:45 [facility] PreOp Case Times Audit 03/08/21 16:42:45 Sausage Linker: [email or web address] Modifier: [email or web address] <+> 1 Patient Out of Preop 03/08/21 10:05:59 Sausage Linker: ERIKA Modifier: [email or web address] <+> 1 Patient Ready for Surgery Finalized By: NURIS ROYAL, RN Document Signatures Signed By: NURIS ROYAL RN 03/08/21 16:42 documented in this encounter Plan of Treatment Not on file documented as of this encounter Visit Diagnoses Not on filedocumented in this encounter
--- OUTSIDE RECORDS SUMMARY | 2024-10-20 10:51 | XMS_ITS | Encounter Summary ---
Author Organization [employer] ([place], [place], [place], [place]) Address [address] [place] [address] Care Team Providers Care Lead Business Analyst Name Role Phone Unavailable Primary Care Provider Unavailabl e Encounter Details Date Type Department Care Team (Late st Contact Info) Description 03/08/2021 Transcribed Document [facility] [place] Family Medicine [address] [place] [address] ProviderHenny MD [address] [place] [phone] Social History Tobacco Use Types Packs/Day Years Used Date Smoking Tobacco: Never Assessed Comments Unknown Sex and Gender Information Value Date Recorded Sex Assigned at Not on file Legal Sex Female 7:12 PM CDT Gender Identity Not on file Sexual Orientation Not on file documented as of this encounter Miscellaneous Notes * Cerner Conversion Note - Historical ProviderMD - 03/08/2021 11:56 AM FISHER Patient: NICHO LIM Age: 15 Years Sex: Female : 2005 *Operation Destruction of plantar verruca to bilateral feet Local nerve block bilateral feet Indication for Surgery This 15 year old female presented to clinic with history of plantar verruca to her feet for several months. She has previous had it excised in the office by another diesel engine i pipe fitter and it had come back. She stated [...] 03/08/2021 Electronically signed by Shukri Powers Conversion Product Responsibility Liaison Cerner at 08/11/2022 7:20 PM CDT documented in this encounter Plan of Treatment Not on file documented as of this encounter Visit Diagnoses Not on filedocumented in this encounter
--- OUTSIDE RECORDS SUMMARY | 2024-10-20 10:51 | XMS_ITS | Encounter Summary ---
Author Organization [employer] ([place], [place], [place], [place]) Address [address] [place] [address] Care Team Providers Care Water Resources Business Segment Leader Name Role Phone Unavailable Primary Care Provider Unavailabl e Encounter Details Date Type Department Care Team (Late st Contact Info) Description 03/08/2021 Transcribed Document [facility] [place] [facility] [place] [address] ProviderHenny MD [address] [place], [place] [phone] Social History Tobacco Use Types Packs/Day Years Used Date Smoking Tobacco: Never Assessed Comments Unknown Sex and Gender Information Value Date Recorded Sex Assigned at Not on file Legal Sex Female 7:12 PM CDT Gender Identity Not on file Sexual Orientation Not on file documented as of this encounter Miscellaneous Notes * Cerner Conversion Note - Historical ProviderMD - 03/08/2021 11:41 AM PRINT AND PATTERN DESIGNER [place] Main OR PostOp Summary Primary Physician: TAI MYRICK DPM-SUR Finalized Date/Time: 03/08/21 12:37:51 Pt. Name: NICHO NIETO/Sex: 2005 Female Med Rec #: [id number] Physician: TAI MYRICK DPM-SUR Financial #: [id number] Pt. Type: O Room/Bed: [facility]/5 Admit/Disch: 03/08/21 04:40:00 - Institution: [facility] PostOp Case Times Entry 1 In PACU II 03/08/21 12:07:00 Ready for PACU II 03/08/21 12:37:00 Discharge Discharge from PACU 03/08/21 12:37:00 II Last Modified By: Meghna Lundy RN 03/08/21 12:36:52 [place] [facility] [place] PostOp Case Times Audit 03/08/21 12:36:52 Mold Tooling Technician: CHRISTY Modifier: CARRIEC <+> 1 Ready for PACU II Discharge <+> 1 Discharge from PACU II Finalized By: Meghna Lundy RN Document Signatures Signed By: Meghna Lundy RN 03/08/21 12:37 documented in this encounter Plan of Treatment Not on file documented as of this encounter Visit Diagnoses Not on filedocumented in this encounter
[2024-10-20 12:24] LABS: Basophils % 0.4 % (0.1-2.0); Eosinophils # 0.4 Kmm3 (0.0-0.4); Eosinophils % 4.6 % (0.1-12.0); Hematocrit 31.5 % (37.0-47.0); Hemoglobin 10.6 g/dL (12.2-16.2); Immature Granulocytes # 0.02 10^3uL; Immature Granulocytes % 0.3 %; Lymphocytes # 1.2 K/mm3 (0.7-4.5); Lymphocytes % 15.6 % (10-50); Mean Corpuscular HGB Conc 33.7 g/dL (31.8-35.4); Mean Corpuscular Hemoglobin 30.5 pg (27.0-31.2); Mean Corpuscular Volume 90.5 fl (81-99); Mean Platelet Volume 9.5 fl (7.4-10.4); Monocytes # 0.6 K/mm3 (0.1-1.0); Monocytes % 7.2 % (1.7-9.3); Neutrophils # 5.7 K/mm3 (1.8-7.8); Neutrophils % 71.9 % (37.0-80.0); Nucleated Red Blood Cells # 0 10^3/uL; Nucleated Red Blood Cells % 0 %; Platelet Count 224 K/mm3 (142-424); Red Blood Count 3.48 M/mm3 (4.20-5.40); Red Cell Distribution Width 13.2 % (11.5-17.5); Red Cell Distribution Width-SD 43.7 fL; White Blood Count 7.9 K/mm3 (4.8-10.8)
[2024-10-20 12:58] LABS: Glucose 1 Hour 95 mg/dL (74-100)
[2024-10-21 15:06] LABS: RPR W/RFX Titers Nonreactive (Nonreactive)
== END 2024-10-20 23:59 | disposition home or self-care (01) ==
LOC: LAB 10:49
PROVIDERS: PCP Nurse Practitioner; Visit Provider Obstetrics & Gynecology
DX: Z34.82 Encounter for supervision of other normal pregnancy, second trimester (principal)
CPT/HCPCS: 36415; 82947; 85025; 86592

== ENCOUNTER 2025-01-02 14:48 | Inpatient (IN) | payer BC, OTHER, SELFPAY ==
[2025-01-02 11:25] VITALS: BMI 25.1
--- OUTSIDE RECORDS SUMMARY | 2025-01-02 11:26 | XMS_ITS | Clinical Summary ---
Author Organization [facility] Address [address] [place] [phone] Care Team Providers Care Mortar Maker Name Role Phone Provider, No Known Primary Care Provider Unavail able Allergies No known active allergies Medications Lillow 0.15-30 MG-MCG per tablet TAKE 1 TABLET BY ORAL ROUTE ONCE DAILY 06/20/2021 Active Active Problems No known active problems Family History Medical History Relation Name Comments Heart disease Father Stroke Father Relation Name Status Comments Father Social History Tobacco Use Types Packs/Day Years Used Date Smoking Tobacco: Never Smokeless Tobacco: Never Alcohol Use Standard Drinks/Week Comments Not Currently 0 (1 standard drink = 0.6 oz pur e alcohol) Abuse Screen Answer Date Recorded Unsafe at Home or Work/School Not on file Feels Threatened by Someone? Not on file 02/2023 Does Anyone Keep You from Co ntacting Others or Doint Things Outside the Home? Not on file 01/31/2023 Physical Sign of Abuse Present Not on file 1 Housing Stability Answer Date Recorded Current Living Arrangements Not on file 01/21 Potentially Unsafe Housing Conditions Not on carmen e 01/31/2023 Family and Community Support Answer Angel e Recorded Help with Day-to-Day Activities Not on file 01/31/2023 Lonely or Isolated Not on file 01/31/2023 Employment Answer Date Recorded Do you want help finding or keeping work or a adelaide b? Not on file 01/31/2023 Disabilities Answer Date Recorded Concentrating, Remembering, or Making Decisions Difficulty Not on file 01/31/2023 Doing Errands Independently Difficulty Not on fi le 01/31/2023 Education Answer Date Recorded Help with school or training? Not on file Preferred Language Not on file 01/31/2023 Comments No Sex and Gender Information Value Date Recorded Sex Assigned at Not on file Legal Sex Female 1:05 PM EST Gender Identity Not on file Sexual Orientation Not on file Last Filed Vital Signs Vital Sign Reading Time Taken Comments Blood Pressure 102/78 06/29/2021 3:08 PM EST Pulse 143 05/09/2017 1:43 PM EST Temperature 38.1 C (100.6 F) 05/09/2017 1:43 PM EST Respiratory Rate 18 05/09/2017 1:43 PM EST Oxygen Saturation 99% 05/09/2017 1:43 PM EST Inhaled Oxygen Concentration - - Weight 50.5 kg (111 lb 6.4 oz) 06/29/2021 3:08 P M EST Height 160 cm (5' 3 ) 06/29/2021 3:08 PM EST Body Mass Index 19.73 06/29/2021 3:08 PM EST Plan of Treatment Health Maintenance Due Date Last Done Comments Annual Gynecologic Pelvic an d Breast Exam 2005 ANNUAL PHYSICAL 05/09/2017 HEPATITIS C SCREENING 05/09/2017 MENINGOCOCCAL B VACCINE (1 o f 2 - Standard) 2019 TDAP/TD VACCINES (2 - Td or Tdap) 12/03/2024 12/03/2014 COVID-19 Vaccine (3 - 2024-2 6 season) 2024 12/31/2020, 12/03/2020 INFLUENZA VACCINE 01/21/2025 HPV VACCINES Completed 12/12/2018, 12/12/2017 MENINGOCOCCAL VACCINE Completed 02/23/2020 , 12/03/2014 CHLAMYDIA SCREENING Discontinued 06/29/2021 Pneumococcal Vaccine 0-49 Aged Out No longer eligible based on patient's age to complete this topic Procedures Procedure Name Priority Date/Time Associated Diagnosis Comments CHLAMYDIA TRACHOMATIS, NEISSERIA GONORRHOEAE, PCR W/ CONFIRMATION Routine 06/29/2021 3:45 PM EST Women's annual routine gynecological examination from Last 3 Months or Most Recently Relevant to Health Maintenance Results * Chlamydia trachomatis, Neisseria gonorrhoeae, PCR w/ confirmation - Swab, Cervix (06/29/2021 3:45 PM EST) Chlamydia trachomatis, SALIMA Negative Negative [facility] Neisseria gonorrhoeae, SALIMA Negative Negative [facility] Swab Cervix uteri structure / Unknown 06/29/2021 3:45 PM EST 06/29/2021 Comment:CX Narrative [facility] ([facility]) - 07/02/2021 6:09 AM EST Performed at: 01 - [facility] [id number] Trackman: Kaylynn Day MD, Phone: [phone] Patient Fasting: N us Louise Adelaide Corie DOCUMENT PHOTOGRAPHER MICROBIOLOGY - GENERAL ORDERA BLES Final Result [facility] ([facility]) [address] [place] [address], [facility] [address] [place] [address], from Last 3 Months or Most Recently Relevant to Health Maintenance Insurance [employer] [place] [employer] Care Teams Mortar Maker Relationship Specialty Start Date End Date Provider, [place] [address] PCP - General 05/09/17
[2025-01-02 12:02] VITALS: BP 123/75; PULSE 119; RESP 17; TEMP 36.9; O2SAT 99; BMI 25.1
[2025-01-02 12:09] LABS: Microscopic, Urine URINE MICROSCOPIC (MICROSCOPIC)
[2025-01-02 12:11] LABS: Bilirubin,Urine Negative (Negative); Color,Urine YELLOW (Yellow); Glucose,Urine (UA) Negative (Negative); Ketones,Urine Negative (Negative); Leukocyte Esterase,Urine 1+ (Negative); PH,Urine 7.5 (5.0-8.5); Protein,Urine Negative (Negative); Specific Gravity, Urine 1.015 (1.005-1.030); Urobilinogen,Urine 0.2 EU/dl (0.2)
[2025-01-02 12:39] LABS: RBC,Urine Occasional #/hpf (0-3)
[2025-01-02] MEDS: LACTATED RINGERS 1000ML 1,000 ML 999 ML IV (13:30)
--- NOTE | 2025-01-02 15:01 | HMH.PHAINT1 ---
Pharmacy Intervention Comments: MEDICATION RECONCILIATION COMPLETE USING EXTERNAL PHARMACY FILL HISTORY AND MOST RECENT OB OFFICE VISIT NOTE.
[2025-01-02] MEDS: AMPICILLIN SODIUM 2 GM in 0.9 % SODIUM CHLORIDE 100 ML IV (15:07)
[2025-01-02] MEDS: DEXTROSE 5%-LACTATED RINGERS 1,000 ML 125 ML IV (15:07)
[2025-01-02 15:20] LABS: Hematocrit 38.6 % (37.0-47.0); Hemoglobin 12.9 g/dL (12.2-16.2); Immature Granulocytes % 0.2 %; Mean Corpuscular HGB Conc 33.4 g/dL (31.8-35.4); Mean Corpuscular Hemoglobin 30.4 pg (27.0-31.2); Mean Corpuscular Volume 90.8 fl (81-99); Nucleated Red Blood Cells % 0 %; Platelet Count 189 K/mm3 (142-424); Red Blood Count 4.25 M/mm3 (4.20-5.40); Red Cell Distribution Width-SD 46.9 fL; White Blood Count 8.5 K/mm3 (4.8-10.8)
--- NOTE | 2025-01-02 18:29 | EXP.HP ---
History of Present Illness *Admission Date: 01/02/25 *Reason for visit:: Active Labor *History of present illness: Paulina Nieto is a 19yo at 37w5d gestation who presented to labor and delivery with regular painful contractions and was noted to make cervical change. Her HEAVENLY is based on last menstrual period which was consistent with for ultrasound. Her has been complicated by GBS bacteria beginning of . On presentation patient endorsed good movement and denies any leakage of fluid or vaginal bleeding. A+, antibody negative, rubella immune, hepatitis B negative, hepatitis C negative, RPR negative, HIV negative 1 hour GTT: 111 GBS Positive PFSH PFSH Disclaimer: The information contained in this section may have been updated after the patient was seen, as this information can be updated by other users. Medical History Constipation during GBS bacteriuria at Initial ob visit. She will need abx in labor regardless of RV swab Influenza A DUB (dysfunctional uterine bleeding) Surgical History No significant past surgical history Family History Other Family history of cancer Social History Smoking Status: Never smoker alcohol intake: never substance use type: denies use current occupational status: employed Travel in the last 8 weeks?: None Have you lived/traveled outside US in past 30 days?: No Contact w/someone who lives/traveled outside US past 30 days?: No Exposure to someone with infectious disease in past 14 days?: No Do you have a fever (greater than 100.4 F or 38 C)?: No Have you tested positive for COVID-19?: No Exposed to someone with COVID-19 in past 14 days?: No Do you have a sore throat?: No Do you have a cough?: No Do you have any weakness?: No Do you have any diarrhea?: No Are you experiencing any unusual bleeding?: No Do you have any muscle aches/pain?: No Do you have any abdominal pain?: Yes Are you experiencing loss of taste or smell?: No Other Medical History Have you received the Flu Vaccine for this season: Yes Have you received the Pneumonia Vaccine: No Review of Systems Review of Systems Review of systems (narrative): Review of Systems Constitutional: Denies fever, chills, and sweats Eyes: Denies vision change/ pain Respiratory: Denies cough and shortness of breath Cardiovascular: Denies chest pain and lightheadedness Gastrointestinal: Admits abdominal pain with contractions. Denies nausea, vomiting. Genitourinary: Denies dysuria and incontinence Musculoskeletal: Denies shoulder pain and back pain Neurological: Denies change in speech or headaches Meds Home Medications and Allergies Home Medications ?Medication ?Instructions ?Recorded ?Confirmed ?Type PNV 153-FA 400 mcg-om3 35 mg-dha 1 tab PO DAILY 06/09/24 01/02/25 History 25 mg-epa 5 mg-fish oil chew tablet ( Gummies) docusate sodium 100 mg capsule 100 mg PO DAILY #30 caps 10/23/24 01/02/25 Rx (Colace) ferrous sulfate 325 mg (65 mg 325 mg PO DAILY #30 tabs 12/23/24 01/02/25 Rx iron) tablet,delayed release New Prescriptions to Start Prescriptions: Allergies Allergy/AdvReac Type Severity Reaction Status Date / Time No Known Allergies Allergy Verified 01/01/25 13:31 Exam Data for Last 24 hours Vital signs and Labs for Last 24 Hours: Temp Pulse Resp BP Pulse Ox O2 Del Method 98.4 F 119 H 17 123/75 99 Room Air 01/02/25 12:02 01/02/25 12:02 01/02/25 12:02 01/02/25 12:02 01/02/25 12:02 01/02/25 12:02 Laboratory Results - last 24 hr 01/02/25 11:31: Urine Color Yellow, Urine Appearance Clear, Urine pH 7.5, Ur Specific [place] 1.015, Urine Protein Negative, Urine Glucose (UA) Negative, Urine Ketones Negative, Urine Blood 2+ A, Urine Nitrate Negative, Urine Bilirubin Negative, Urine Urobilinogen 0.2, Ur Leukocyte Esterase 1+ A, Urine RBC Occasional, Urine WBC None, Ur Squamous Epith Cells None, Urine Bacteria None 01/02/25 15:06: WBC 8.5, RBC 4.25, Hgb 12.9, Hct 38.6, MCV 90.8, MCH 30.4, MCHC 33.4, RDW 14.2, Plt Count 189, MPV 9.1, Neut % (Auto) 75.0, Lymph % (Auto) 15.8, [place] % (Auto) 5.6, Eos % (Auto) 3.0, Baso % (Auto) 0.4, Neut # (Auto) 6.4, Lymph # (Auto) 1.3, [place] # (Auto) 0.5, Eos # (Auto) 0.3, Baso # (Auto) 0.0, Blood Type A Positive, Antibody Screen Negative I & O for Last 24 hours: Intake & Output 12/30/24 12/31/24 01/01/25 01/02/25 23:59 23:59 23:59 23:59 Intake Total 1320.833 / 1320.833 Balance 1320.833 / 1320.833 Weight 142 lb Narrative: General: patient is alert oriented in no acute distress and responds appropriately to questions. HEENT: NCAT, EOMI, moist mucous membranes, neck supple with full ROM Cardiovascular: RRR +S1/S2, no murmurs or rubs Pulmonary: Clear to auscultation bilaterally, nonlabored breathing, symmetric chest rise Abdominal: Gravid abdomen appropriate for gestation. No guarding, rebound, or tenderness noted. Extremities: trace edema, no tenderness or cyanosis noted Skin: Normal turgor, intact, warm. Negative for erythema, pallor, petechia, or lesions Neurologic: Negative for sensory or motor deficit Psychiatric: Normal affect, normal thought process, good judgment and insight, no depression or anxious mood appreciated. *Routine HEENT Exam Head: Present normocephalic and atraumatic Eye: Present EOMI, PERRL and normal accommodation; Absent conjunctival icterus, scleral injection, nystagmus or exophthalmos ENT: Present mucous membranes moist *Routine Respiratory Exam Respiratory: Present CTA bilaterally, normal respiratory effort, able to speak in complete sentences and symmetric chest movement; Absent accessory muscle use, decreased breath sounds, rales, respiratory distress, wheezes, distant breath sounds or diminished air movement *Routine Cardiovascular Exam Cardiovascular: Present RRR, Normal S1 and Normal S2; Absent murmur or gallop *Routine Abdominal Exam Abdominal: Present soft and normoactive bowel sounds; Absent tenderness, distended, rebound or guarding *Routine Rectal Exam Rectal:: deferred *Routine Genitalia Exam Genitalia:: normal female Assessment and Plan *Assessment and plan (1) Active labor: Status: Acute Category: Medical (2) Frequent headaches: Status: Acute Category: Medical Code(s): R51.9 - Headache, unspecified (3) GBS bacteriuria: Problem Comment: at Initial ob visit. She will need abx in labor regardless of RV swab Status: Acute Category: Medical Code(s): R82.71 - Bacteriuria Plan - Monitor vitals - Admit to L&D for labor monitoring and delivery - Plan for augmentation of labor with AROM and pitocin if required. - External FHR and TOCO monitor - Exam on admission: /-3 to /-3 - GBS pos/ Blood type: A+ - Continue GBS prophylaxis with penicillin G [id number] - Hemoglobin: 12.9, Plt: 189 - Plan for epidural anesthesia - Anticipate vaginal delivery of male infant
[2025-01-02] MEDS: AMPICILLIN SODIUM 1 GM in 0.9 % SODIUM CHLORIDE 50 ML IV ×2 (19:08→23:02)
[2025-01-03] MEDS: AMPICILLIN SODIUM 1 GM in 0.9 % SODIUM CHLORIDE 50 ML IV ×3 (03:02→10:57)
[2025-01-03] MEDS: OXYTOCIN/RINGERS LACTATE 30 UNITS/500 ML BAG IV (05:29)
[2025-01-03] MEDS: LACTATED RINGERS 1000ML 1,000 ML 999 ML IV (05:30)
[2025-01-03] MEDS: ONDANSETRON 4MG/2ML VIAL 4 MG IV (06:06)
[2025-01-03 07:18] VITALS: BP 122/56; PULSE 84; RESP 16; TEMP 36.8; O2SAT 100
[2025-01-03 09:38] VITALS: TEMP 36.7
--- NOTE | 2025-01-03 10:00 | EXP.ANES.CKL ---
[facility] Disclaimer: The information contained in this section may have been updated after the patient was seen, as this information can be updated by other users. Medical History Constipation during GBS bacteriuria at Initial ob visit. She will need abx in labor regardless of RV swab Influenza A DUB (dysfunctional uterine bleeding) Surgical History No significant past surgical history Family History Other Family history of cancer Social History Smoking Status: Never smoker alcohol intake: never substance use type: denies use current occupational status: employed Travel in the last 8 weeks?: None Have you lived/traveled outside US in past 30 days?: No Contact w/someone who lives/traveled outside US past 30 days?: No Exposure to someone with infectious disease in past 14 days?: No Do you have a fever (greater than 100.4 F or 38 C)?: No Have you tested positive for COVID-19?: No Exposed to someone with COVID-19 in past 14 days?: No Do you have a sore throat?: No Do you have a cough?: No Do you have any weakness?: No Do you have any diarrhea?: No Are you experiencing any unusual bleeding?: No Do you have any muscle aches/pain?: No Do you have any abdominal pain?: Yes Are you experiencing loss of taste or smell?: No [facility] Anesthesia Checklist Patient Identification Patient Identification: Arm Band and Verbal (Name & ) Structural Data Admitted From: Inpatient Planned Operative Procedure/s: Labor epidural Consent for Planned Operative Procedure(s) Verified: Yes Verified Documents: Surgical Consent NPO Status Verified Time NPO: 00:00 Chart Verification Results Verified: CBC Additional verifications Patient : Yes Anesthesia Reactions: No Airway Assessment Mallampati Score:: Class II C-Spine Mobility Assessed: Yes TMJ Mobility Assessed: Yes Dentition: Good Dentition Neurological Assessment Level of Consciousness: Awake, Alert and Appropriate Hx Seizures: No Numbness or tingling in extremities: No Anesthesia Plan Anesthesia Risk discussed: Yes Anesthesia Plan: Verified ASA Class: II Anesthesia Type: Epidural
[2025-01-03] MEDS: DEXTROSE 5%-LACTATED RINGERS 1,000 ML 125 ML IV (10:57)
[2025-01-03] MEDS: LACTOBACILLUS PROBIOTIC COMB CAPSULE 1 CAP PO (10:58)
[2025-01-03 11:20] VITALS: TEMP 36.7
--- NOTE | 2025-01-03 11:54 | EXP.LABOR.NO ---
Labor Note Subjective: Date: 01/03/25 Time: 11:54 regular contraction Objective: NST:: Reactive Contractions:: every 2-3 minutes Cervical Dilation:: 9-10 Effacement:: 100% Station: 0 Membranes: artificially ruptured (clear fluid around 830 this morning ) Fetus: Monitoring?: Yes monitoring type:: External Assessment: Labor progressing?: Yes Cephalopelvic disproportion?: No Plan: Anesthesia for epidural?: Yes Plan for ?: No Continue to monitor?: Yes Start pushing?: Yes
[2025-01-03 12:17] LABS: RPR W/RFX Titers Nonreactive (Nonreactive)
[2025-01-03] MEDS: OXYTOCIN/RINGERS LACTATE 30 UNITS/500 ML BAG 999 UNITS IV (13:50)
--- NOTE | 2025-01-03 14:05 | EXP.DN ---
Delivery Note Delivery Date:: 01/03/25 Delivery Time:: 13:47 Anesthesia Type: Epidural Was labor medically induced?: No Gestational age (weeks): 37 delivered prior to 39 weeks?: Yes Justification for early elective delivery:: Active Labor Infant Gender: Male at 1 minute: 7 at 5 minutes: 8 Delivery Procedure:: Preoperative diagnosis: 1. at 37w6d completed this weeks gestation, vertex 2. Rh positive 3. GBS positive 4. Active Labor Postoperative diagnosis: 1. at 37w6d completed this weeks gestation, vertex 2. Rh positive 3. GBS positive 4. Active Labor EBL: 50mL Specimen: 1. Cord blood Findings: 1. Liveborn viable male infant. Apgars 7/8 at 1 and 5 minutes respectively. Weight pending at time of dictation Complications: None Procedure: Nonoperative spontaneous vaginal delivery over intact perineum Paulina Nieto is a pleasant 19-year-old G2, P1 who presented to labor and delivery with regular painful contractions on 01/02/2025 she was noted to make cervical change from 1 cm to 5 cm and admitted overnight for labor monitoring. She had AROM this morning at 830 with low-dose Pitocin for augmentation and was complete at 11. was uncomplicated. She GBS bacteriuria The was noted to be in LISSETT position. With effective maternal pushing there was a nonoperative spontaneous vaginal delivery at 1347. No nuchal cord present. The anterior left shoulder delivered, followed by the posterior shoulder without dystocia. The body and lower extremities delivered without difficulty. The infant was bulb suctioned and was crying immediately following delivery. The was placed on the maternal abdomen and greater than one minute was appreciated for delayed cord clamping. The umbilical cord was doubly clamped and cut. Cord blood was collected and sent for routine testing. The placenta delivered with cord traction and suprapubic contertraction. Pitocin was started. The uterus was firm and bleeding was minimal. The perineum, vaginal pickering, cervix, and paraurethral area were inspected thoroughly and noted to be hemostatic and free of laceration. The patient tolerated the delivery well. All counts were correct by nursing. Mother and were doing well and bonding upon my leaving the delivery room. Placental Delivery Description: Spontaneous
[2025-01-03] MEDS: OXYTOCIN/RINGERS LACTATE 30 UNITS/500 ML BAG 40 UNITS IV (15:04)
[2025-01-03] MEDS: ACETAMINOPHEN 500MG TAB 1000 MG PO ×2 (16:19→23:07)
[2025-01-03] MEDS: WITCH HAZEL 40 PADS/BOX 1 EACH TP (16:20)
[2025-01-03] MEDS: BENZOCAINE-MENTHOL SPRAY 56GM CAN TP (16:20)
[2025-01-03] MEDS: IBUPROFEN 400 MG TABLET 800 MG PO (16:20)
[2025-01-03 16:48] VITALS: BP 128/67; PULSE 89; RESP 16; TEMP 36.7; O2SAT 99
[2025-01-04] MEDS: IBUPROFEN 400 MG TABLET 800 MG PO ×3 (03:14→19:17)
[2025-01-04 07:44] LABS: Hematocrit 29.6 % (37.0-47.0); Hemoglobin 9.8 g/dL (12.2-16.2); Immature Granulocytes % 0.3 %; Mean Corpuscular HGB Conc 33.1 g/dL (31.8-35.4); Mean Corpuscular Hemoglobin 30.3 pg (27.0-31.2); Mean Corpuscular Volume 91.6 fl (81-99); Nucleated Red Blood Cells % 0 %; Platelet Count 163 K/mm3 (142-424); Red Blood Count 3.23 M/mm3 (4.20-5.40); Red Cell Distribution Width-SD 46.8 fL; White Blood Count 7.5 K/mm3 (4.8-10.8)
[2025-01-04 07:54] VITALS: BP 119/70; PULSE 102; RESP 16; TEMP 36.7; O2SAT 99
[2025-01-04] MEDS: LACTOBACILLUS PROBIOTIC COMB CAPSULE 1 CAP PO (08:49)
[2025-01-04] MEDS: IRON SUCROSE COMPLEX 200 MG in 0.9 % SODIUM CHLORIDE 100 ML 220 MG IV (08:53)
[2025-01-04 16:49] VITALS: BP 110/63; PULSE 80; RESP 18; TEMP 36.7; O2SAT 98
[2025-01-04] MEDS: ACETAMINOPHEN 500MG TAB 1000 MG PO (18:16)
--- NOTE | 2025-01-04 19:02 | P.PN_ITS ---
Subjective *Date: 01/04/25 *Time: 19:02 Interval history: Paulina Nieto is a 19yo PPD#1 following a normal spontaneous vaginal delivery at 37 weeks and 6 days gestation after presenting in active labor. was uncomplicated. Routine delivery and course. PP anemia dx, s/p IV iron, feels well. She is doing well, resting in bed. -Reports pain is well-controlled -Reports she is tolerating p.o. without nausea or vomiting. -Reports her lochia is scant. -undecided on contraception -She is bottle-feeding her male -Ambulating, voiding difficulty or dysuria. Denies chest pain shortness of breath or pain in her legs. No further complaints at this time. Exam Data for Last 24 hours Vital signs and Labs for Last 24 Hours: Temp Pulse Resp BP Pulse Ox O2 Del Method 98.1 F 80 18 110/63 98 Room Air 01/04/25 16:49 01/04/25 16:49 01/04/25 16:49 01/04/25 16:49 01/04/25 16:49 01/04/25 16:49 Laboratory Results - last 24 hr 01/04/25 07:25: WBC 7.5, RBC 3.23 L, Hgb 9.8 L, Hct 29.6 L, MCV 91.6, MCH 30.3, MCHC 33.1, RDW 14.1, Plt Count 163, MPV 9.4, Neut % (Auto) 75.0, Lymph % (Auto) 16.0, [place] % (Auto) 6.3, Eos % (Auto) 2.0, Baso % (Auto) 0.4, Neut # (Auto) 5.7, Lymph # (Auto) 1.2, [place] # (Auto) 0.5, Eos # (Auto) 0.2, Baso # (Auto) 0.0 I & O for Last 24 hours: Intake & Output 01/01/25 01/02/25 01/03/25 01/04/25 23:59 23:59 23:59 23:59 Intake Total 1420.833 / 6962.030 3836.116 / 2560.116 110 / 110 Balance 1420.833 / 7357.125 1008.116 / 2560.116 110 / 110 Weight 142 lb Microbiology Reports for the Last 24 Hours: Microbiology 01/02/25 11:31 Urine,Clean Catch Urine Culture - Final NO GROWTH AFTER 48 HOURS Narrative: General: patient is alert oriented in no acute distress and responds appropriately to questions. Appears to be in minimal pain. HEENT: NCAT, EOMI, moist mucous membranes, neck supple with full ROM Cardiovascular: RRR +S1/S2, no murmurs or rubs Pulmonary: Clear to auscultation bilaterally, nonlabored breathing, symmetric chest rise Abdominal: Fundus below the umbilicus, firm, and tenderness appropriate for the period. Extremities: trace edema, no tenderness or cyanosis noted Skin: Normal turgor, intact, warm. Negative for erythema, pallor, petechia, or lesions Neurologic: Negative for sensory or motor deficit Psychiatric: Normal affect, normal thought process, good judgment and insight, no depression or anxious mood appreciated. Assessment and Plan *Assessment and plan (1) Active labor: Status: Acute Category: Medical (2) Frequent headaches: Status: Acute Category: Medical Code(s): R51.9 - Headache, unspecified (3) GBS bacteriuria: Problem Comment: at Initial ob visit. She will need abx in labor regardless of RV swab Status: Acute Category: Medical Code(s): R82.71 - Bacteriuria (4) Normal spontaneous vaginal delivery: Status: Resolved Category: Medical Code(s): O80 - Encounter for full-term uncomplicated delivery Plan Stable. PPD#1 s/p -IP. -Doing well. VSS. Serial lochia and fundal checks. -Continue with perineal ice packs for discomfort -Hemoglobin: 12.9--> 9.8 - asymptomatic anemia noted. Vitals stable. Continue monitoring. DC with Fe -A+/antibody negative -Bottle feeding, male -Desires circumcision, consents signed and risks reviewed -Contraception: undecided -Follow-up 2 weeks for routine visit -Dispo: home in 1-3 days pending mother/ status
[2025-01-05] MEDS: IBUPROFEN 400 MG TABLET 800 MG PO (04:15)
[2025-01-05] MEDS: ACETAMINOPHEN 500MG TAB 1000 MG PO (04:15)
[2025-01-05 08:14] VITALS: BP 112/68; PULSE 97; RESP 16; TEMP 36.7; O2SAT 96
--- NOTE | 2025-01-05 09:31 | P.DS_ITS ---
General Admission date:: 01/02/25 Discharge date: 01/05/25 HPI HPI HPI: Paulina Nieto is a 19yo at 37w5d gestation who presented to labor and delivery with regular painful contractions and was noted to make cervical change. Her HEAVENLY is based on last menstrual period which was consistent with for ultrasound. Her has been complicated by GBS bacteria beginning of . On presentation patient endorsed good movement and denies any leakage of fluid or vaginal bleeding. A+, antibody negative, rubella immune, hepatitis B negative, hepatitis C negative, RPR negative, HIV negative 1 hour GTT: 111 GBS Positive Hospital Course Hospital Course Hospital Course: Paulina Nieto is a pleasant 19-year-old G2, P2 day #2 following a normal spontaneous vaginal delivery on 01/03/2025 at 1347. She came in in active labor and made progressive change on her own. She delivered a live viable male at 37 weeks and 6 days gestation with Apgars of 7 and 9. weighed 6 pounds 0 ounces. She has done well and has [facility] She is eating and drinking and ambulating. She is both breast and bottle feeding. Her lochia is normal. She has A Rh+ blood, she is rubella immune and was group B streptococcus positive. She will be discharged home to follow-up with Dr. Mohr in 2 weeks time. She will continue with her vitamins and iron. She had anemia and received IV iron on day #1. Paulina will take ibuprofen for pain management. She was given the usual instructions with respect to limiting her activity, driving and sexual activity. She was given instructions with resp ect to wound care. Her condition on discharge is stable and improved. Exam Data for Last 24 hours Vital signs and Labs for Last 24 Hours: Temp Pulse Resp BP Pulse Ox O2 Del Method 98.1 F 97 H 16 112/68 96 Room Air 01/05/25 08:14 01/05/25 08:14 01/05/25 08:14 01/05/25 08:14 01/05/25 08:14 01/05/25 08:14 I & O for Last 24 hours: Intake & Output 01/02/25 01/03/25 01/04/25 01/05/25 23:59 23:59 23:59 23:59 Intake Total 1420.833 / 1088.101 9904.366 / 3441.366 110 / 110 Balance 1420.833 / 2161.340 1721.366 / 3441.366 110 / 110 Weight 142 lb Microbiology Reports for the Last 24 Hours: Microbiology 01/02/25 11:31 Urine,Clean Catch Urine Culture - Final NO GROWTH AFTER 48 HOURS Narrative: General: patient is alert oriented in no acute distress and responds appropriately to questions. Appears to be in minimal pain. HEENT: NCAT, EOMI, moist mucous membranes, neck supple with full ROM Cardiovascular: RRR +S1/S2, no murmurs or rubs Pulmonary: Clear to auscultation bilaterally, nonlabored breathing, symmetric chest rise Abdominal: Fundus below the umbilicus, firm, and tenderness appropriate for the period. Extremities: trace edema, no tenderness or cyanosis noted Skin: Normal turgor, intact, warm. Negative for erythema, pallor, petechia, or lesions Neurologic: Negative for sensory or motor deficit Psychiatric: Normal affect, normal thought process, good judgment and insight, no depression or anxious mood appreciated. DS: Diagnosis Discharge Diagnosis (1) Active labor: Status: Acute (2) Frequent headaches: Status: Acute Code(s): R51.9 - Headache, unspecified (3) GBS bacteriuria: Status: Acute Code(s): R82.71 - Bacteriuria Problem details: at Initial ob visit. She will need abx in labor regardless of RV swab (4) Normal spontaneous vaginal delivery: Status: Resolved Code(s): O80 - Encounter for full-term uncomplicated delivery Meds Home Medications and Allergies Home Medications ?Medication ?Instructions ?Recorded ?Confirmed ?Type PNV 153-FA 400 mcg-om3 35 mg-dha 1 tab PO DAILY 01/02/25 History 25 mg-epa 5 mg-fish oil chew tablet ( Gummies) acetaminophen 500 mg tablet 500 mg PO Q6H PRN fever or pain 01/05/25 Rx #30 tabs docusate sodium 100 mg capsule 100 mg PO DAILY #30 cap s 01/05/25 Rx (Colace) ferrous sulfate 325 mg (65 mg 325 mg PO DAILY #30 tabs 01/05/25 Rx iron) tablet,delayed release ibuprofen 800 mg tablet 800 mg PO Q8H PRN pain #60 t abs 01/05/25 Rx New Prescriptions to Start Prescriptions: acetaminophen Heidi Ambrocio docusate sodium [Colace] Heidi Ambrocio ferrous sulfate Heidi Ambrocio ibuprofen Heidi Ambrocio Allergies Allergy/AdvReac Type Severity Reaction Status Date / Time No Known Allergies Allergy Verified 01/01/25 13:31 Discharge Plan Disposition Patient Disposition: Home, Self-Care Discharge Order Discharge Orders: Discharge Order (Routine); Ordered 01/05/25 Ordered By: Heidi Ambrocio Follow up Plan Follow up with: Heidi Ambrocio DO [Staff Physician, ENTRY LEVEL ASSISTANT MANAGER] - 01/16/25 3:15 pm Holly Mohr DO [Staff Physician, ENTRY LEVEL ASSISTANT MANAGER] - Enter time for follow up Prescriptions/Medication Reconciliation: New ibuprofen 800 mg tablet 800 mg PO Q8H PRN (Reason: pain) Qty: 60 2RF acetaminophen 500 mg tablet 500 mg PO Q6H PRN (Reason: fever or pain) Qty: 30 3RF Continued Gummies 400 mcg-35 mg- 25 mg-5 mg tablet,chewable 1 tab PO DAILY docusate sodium [Colace] 100 mg capsule 100 mg PO DAILY Qty: 30 2RF ferrous sulfate 325 mg (65 mg iron) tablet,delayed release (DR/EC) 325 mg PO DAILY Qty: 30 3RF Rx Instructions: Take with small amounts of Vitamin C to help with absorption. Problem Reconciliation Problems Reviewed?: Yes Patient Discharge Instructions ACTIVITY: Continue current activity and Ambulate as tolerated DIET: regular diet Additional Instructions: Congratulations on the delivery of your sweet baby boy. It is my privilege to be at your EN[employer] LEVEL ASSISTANT MANAGER team and I am so thankful I could be a part of your special day. Discharge: -Take 800 mg Ibuprofen every 8 hours as needed for pain. You can also take 500- 1000 mg of Tylenol in between doses, every 6-8 hours. -Colace can be taken 1-2 times per day as you need to soften your stool. Make sure to drink at least 8 cups of water per day. -Iron supplements can make you constipated. You can take iron tablets every other day if constipation is too bad. -Nothing in the vagina for 6 weeks - no intercourse, douching, tampons. No tub baths or swimming pools. -Do not lift greater than 20pounds for 2 weeks, this is the equivalent of 2 gallons of milk. -Reasons to return to L&D or call On-Call doctor - fever (greater than 100.4) - heavy vaginal bleeding (soaking through 1 pad in less than 2 hours or passing clots that are egg sized) - vaginal discharge (malodorous and/or purulent) - severe headaches, leg tenderness/edema, or any other symptoms that warrant immediate medical attention. depression/blues - Normal to feel anxious/overwhelmed for first 2 weeks - Talk to your doctor if: anxiety lasts over 2 weeks, trouble bonding with baby, withdrawing from other family members, thoughts of harming yourself or others Blood pressure and preeclampsia instructions - Please call if greater than 2 values are higher than: 150 systolic (the top number) or 100 diastolic (the bottom number). - Please go to the emergency room or labor and delivery triage if any value is higher than: 160 systolic (the top number) or 110 diastolic (the bottom number). - Please call if unrelenting headache (does not go away with rest or Tylenol or ibuprofen), changes in vision (spots, floaters, flashes of light), chest pain, shortness of breath, or right upper quadrant (liver) abdominal pain. Heidi Ambrocio DO [facility] [phone] *Nothing in the Vagina for 6 weeks* *No strenuous activity* *No heavy lifting* *No tub baths until okay's by MD* Patient Instructions: Depression, Hemorrhage, DI for Labor and Delivery, Vaginal , DI for Pre-eclampsia, [facility] Post Discharge Instructions Print Language: Occitan Providers Primary Care Provider: Melody Barnett Admit Provider: Heidi Ambrocio Attending Provider: Heidi Ambrocio
== END 2025-01-05 12:17 | disposition home or self-care (01) | DRG 807 ==
LOC: OBOUT 14:48 → OB 14:48
PROVIDERS: Admitting Provider Obstetrics & Gynecology; PCP Nurse Practitioner; Visit Provider Obstetrics & Gynecology
DX: O99.824 Streptococcus B carrier state complicating childbirth (principal); Z37.0 Single live birth; Z3A.37 37 weeks gestation of pregnancy; O26.893 Other specified pregnancy related conditions, third trimester; O90.81 Anemia of the puerperium; R51.9 Headache, unspecified; Z23 Encounter for immunization
CPT/HCPCS: 36415; 59025; 81001; 85025; 86592; 86850; 87086; 94761; 96360; 99212; G0463; J0290; J1756; J2405; J7120; J7121

== ENCOUNTER 2025-02-09 15:50 | Outpatient (CLI) | payer BC, OTHER, SELFPAY | END 2025-02-09 23:59 | disposition home or self-care (01) | LOC: LAB 15:50 | PROVIDERS: PCP Nurse Practitioner; Visit Provider Obstetrics & Gynecology | DX: Z30.9 Encounter for contraceptive management, unspecified (principal) | CPT/HCPCS: 36415; 84144; 84702 ==